=== PATIENT | female | born 1930 | race Caucasian/White ===

== ENCOUNTER 2016-06-03 15:40 | Emergency (ER) | payer OTHER ==
[~2016-06-03] VITALS: Ht 172.7 cm; Wt 63.0 kg
[~2016-06-03 15:40] MED LIST: ALPR0.25 PO; ATEN25TA PO; DULO1CAP PO; ZOLP10TA3 PO
--- NOTE | 2016-06-03 15:58 | PD ---
HPI Chief Complaint: psychiatric evaluation Time Seen by Provider: 15:57 Travel History International Travel<30 days: No Contact w/Intl Traveler<30days: No History of Present Illness HPI Patient comes in under a Hernandez act by police after making suicidal statements. Patient denies any suicidal or homicidal ideations. Denies any medical concerns at this time. Denies any chest pain, shortness breath, fevers, abdominal pain, neck pain, or headaches. PFSH Past Medical History Arthritis: No Asthma: No Autoimmune Disease: No Anxiety: Yes Depression: Yes Heart Rhythm Problems: No Cancer: No Cardiovascular Problems: No High Cholesterol: No Chemotherapy: No Chest Pain: No Congestive Heart Failure: No COPD: No Diabetes: No Diminished Hearing: No Endocrine: No Gastrointestinal Disorders: Yes Glaucoma: No Genitourinary: No Hepatitis: No Hiatal Hernia: No Hypertension: No Immune Disorder: No Kidney Stones: No Musculoskeletal: No Neurologic: Yes Psychiatric: Yes Reproductive: No Respiratory: No Migraines: No Radiation Therapy: No Renal Failure: No Seizures: No Sickle Cell Disease: No Sleep Apnea: No Thyroid Disease: No Ulcer: No Past Surgical History Abdominal Surgery: No AICD: No Arteriovenous Shunt: No Cardiac Surgery: No Ear Surgery: No Endocrine Surgery: No Eye Surgery: No Genitourinary Surgery: No Gynecologic Surgery: No Insulin Pump: No Joint Replacement: No Oral Surgery: Yes (TONSILLECTOMY) Pacemaker: No Thoracic Surgery: No Tonsillectomy: Yes Social History Alcohol Use: Yes (2 GLASSES WINE DAILY) Tobacco Use: No Substance Use: No Allergies-Medications (Allergen,Severity, Reaction): Coded Allergies: No Known Allergies (Verified , 01/15/16) Reported Meds & Prescriptions Reported Meds & Active Scripts Active Reported Atenolol 25 Mg Tab 25 PO DAILY Zolpidem (Zolpidem Tartrate) 10 Mg Tab 10 Mg PO HS PRN Duloxetine DR (Duloxetine HCl) 20 Mg Capdr 20 Mg PO DAILY Alprazolam 0.25 Mg Tab 0.25 Mg PO Q6H PRN Review of Systems Except as stated in HPI: all other systems reviewed are Neg Physical Exam Narrative GENERAL: Well-developed, well nourished, in no acute distress, and non-ill appearing. SKIN: Focused skin assessment warm and dry. HEAD: Atraumatic. Normocephalic. EYES: Pupils equal and round. EOMI. No scleral icterus. No injection or drainage. ENT: No nasal bleeding or discharge. Mucous membranes pink and moist. NECK: Trachea midline. Supple. No nuclear rigidity. CARDIOVASCULAR: Regular rate and rhythm. No murmur appreciated. RESPIRATORY: No accessory muscle use. No respiratory distress. Clear to auscultation. Breath sounds equal bilaterally. MUSCULOSKELETAL: No obvious deformities. No clubbing. No cyanosis. No edema. Full range of motion. NEUROLOGICAL: Awake and alert. No obvious cranial nerve deficits. Motor grossly within normal limits. Normal speech. PSYCHIATRIC: Appropriate mood and affect; insight and judgment normal. Data Data Last Documented VS Vital Signs Date Time Temp Pulse Resp B/P Pulse Ox O2 Delivery O2 Flow Rate FiO2 06/04/16 09:17 98.1 80 18 108/66 100 Room Air Orders Complete Blood Count With Diff (06/03/16 15:54) Comprehensive Metabolic Panel (06/03/16 15:54) Psych Screen (06/03/16 15:54) Drug Screen, Random Urine (06/03/16 15:54) Alcohol (Ethanol) (06/03/16 15:54) Salicylates (Aspirin) (06/03/16 15:54) Tylenol (Acetaminophen) (06/03/16 15:54) Diet Regular Basic (06/03/16 Dinner) Lorazepam (Ativan) (06/03/16 22:45) Magnesium Hydroxide Liq (Milk Of Magnesi (06/04/16 03:15) Hyoscyamine (Levsin) (06/04/16 03:07) Clonidine (Catapres) (06/04/16 03:15) Labs Laboratory Tests Test 06/03/16 17:37 White Blood Count 3.5 TH/MM3 Red Blood Count 3.91 MIL/MM3 Hemoglobin 12.2 GM/DL Hematocrit 36.4 % Mean Corpuscular Volume 93.0 FL Mean Corpuscular Hemoglobin 31.2 PG Mean Corpuscular Hemoglobin 33.6 % Concent Red Cell Distribution Width 14.4 % Platelet Count 193 TH/MM3 Mean Platelet Volume 8.4 FL Neutrophils (%) (Auto) 53.8 % Lymphocytes (%) (Auto) 33.2 % Monocytes (%) (Auto) 12.0 % Eosinophils (%) (Auto) 0.4 % Basophils (%) (Auto) 0.6 % Neutrophils # (Auto) 1.9 TH/MM3 Lymphocytes # (Auto) 1.2 TH/MM3 Monocytes # (Auto) 0.4 TH/MM3 Eosinophils # (Auto) 0.0 TH/MM3 Basophils # (Auto) 0.0 TH/MM3 CBC Comment DIFF FINAL Differential Comment Sodium Level 140 MEQ/L Potassium Level 3.9 MEQ/L Chloride Level 105 MEQ/L Carbon Dioxide Level 25.0 MEQ/L Anion Gap 10 MEQ/L Blood Urea Nitrogen 17 MG/DL Creatinine 1.20 MG/DL Estimat Glomerular Filtration 43 ML/MIN Rate Random Glucose 87 MG/DL Calcium Level 8.8 MG/DL Total Bilirubin 0.6 MG/DL Aspartate Amino Transf 49 U/L (AST/SGOT) Alanine Aminotransferase 48 U/L (ALT/SGPT) Alkaline Phosphatase 75 U/L Total Protein 6.2 GM/DL Albumin 3.3 GM/DL Salicylates Level LESS THAN 1.7 MG/DL Acetaminophen Level 4.2 MCG/ML Ethyl Alcohol Level 9 MG/DL [facility] Medical Decision Making Medical Screen Exam Complete: Yes Emergency Medical Condition: Yes Differential Diagnosis Homicidal, suicidal, substance abuse disorder, alcohol abuse, other Narrative Course Patient was seen and examined. Labs were obtained and reviewed with the exception of urine. Patient was refusing to give us a sample reports that she went to the bathroom. Patient denies any urinary symptoms and has no white cell count or fever. Patient medically cleared for further treatment and evaluation by psych. Final disposition per psych. Diagnosis Primary Impression: Medical clearance for psychiatric admission Condition: Stable Musa Martines Jun 03, 2016 15:58 Musa Martines Jun 03, 2016 15:58
[2016-06-03 16:08] VITALS: BP 192/110; PULSE 99; RESP 16; TEMP 98; O2SAT 97
[2016-06-03 18:07] LABS: AUTOMATED NEUTROPHIL # 1.9 TH/MM3 (1.8-7.7); BASOPHIL % 0.6 % (0.0-2.0); EOSINOPHIL % 0.4 % (0.0-4.0); HEMATOCRIT 36.4 % (35.0-46.0); HEMO FLAGS DIFF FINAL; LYMPH % 33.2 % (9.0-44.0); LYMPHOCYTE # 1.2 TH/MM3 (1.0-4.8); MEAN CORPUSCULAR HEMOGLOBIN 31.2 PG (27.0-34.0); MEAN CORPUSCULAR HGB CONC 33.6 % (32.0-36.0); NEUT % 53.8 % (16.0-70.0); PLATELET COUNT 193 TH/MM3 (150-450); RED BLOOD COUNT 3.91 MIL/MM3 (4.00-5.30); RED CELL DISTRIBUTION WIDTH 14.4 % (11.6-17.2); WHITE BLOOD COUNT 3.5 TH/MM3 (4.0-11.0)
[2016-06-03 18:27] LABS: ANION GAP 10 MEQ/L (5-15)
[2016-06-03 18:30] LABS: ACETAMINOPHEN 4.2 MCG/ML (10.0-30.0); ALKALINE PHOSPHATASE 75 U/L (45-117); ALT (GPT) 48 U/L (10-53); AST (GOT) 49 U/L (15-37); BLOOD UREA NITROGEN 17 MG/DL (7-18); CHLORIDE 105 MEQ/L (98-107); GLOMERULAR FILTRATION RATE 43 ML/MIN (>89); POTASSIUM 3.9 MEQ/L (3.5-5.1); SODIUM (NA) 140 MEQ/L (136-145); TOTAL BILIRUBIN ADULT 0.6 MG/DL (0.2-1.0)
[2016-06-03 22:38] VITALS: BP 120/87; PULSE 87; RESP 18; TEMP 98.4; O2SAT 98
[2016-06-03] MEDS ORDERED: LORazepam 1 MG TAB PO ONE (22:45)
[2016-06-04 00:43] VITALS: BP 169/103; PULSE 103; RESP 18; O2SAT 100
[2016-06-04] MEDS ORDERED: HYOSCYAMINE 0.125 MG TAB PO STA (03:07)
[2016-06-04] MEDS ORDERED: cloNIDine HCL 0.2 MG TAB PO ONE (03:15)
[2016-06-04] MEDS ORDERED: MAGNESIUM HYDROXIDE SUSP 30 ML CUP PO ONE (03:15)
[2016-06-04 06:15] VITALS: BP 92/55; PULSE 83; RESP 18; TEMP 98.4; O2SAT 100
[2016-06-04 09:17] VITALS: BP 108/66; PULSE 80; RESP 18; TEMP 98.1; O2SAT 100
--- NOTE | 2016-06-04 11:26 | PD ---
History of Present Illness Chief Complaint: Psychiatric Symptoms Time Seen by Provider: 11:00 Travel History International Travel<30 Days: No Contact w/Intl Traveler<30days: No Known affected area: No Legal Status Legal Status: Hernandez Act Hernandez Act Signed By: Brandon Guy History of Present Illness: 85 yo female brought in under for alleged Suicidal threats. Pt. vehemently denies being suicidal and feels her [place] sense of humor was misinterpreted by her pharmacist. PFSH Past Medical History Arthritis: No Asthma: No Autoimmune Disease: No Anxiety: Yes Depression: Yes Heart Rhythm Problems: No Cancer: No Cardiovascular Problems: Yes High Cholesterol: No Chemotherapy: No Chest Pain: No Congestive Heart Failure: No COPD: No Cerebrovascular Accident: Yes Diabetes: No Diminished Hearing: No Endocrine: No Gastrointestinal Disorders: Yes Glaucoma: No Genitourinary: No Hepatitis: No Hiatal Hernia: No Hypertension: No Immune Disorder: No Kidney Stones: No Medical other: Yes (IRRITABLE BOWEL SYNDROME) Musculoskeletal: No Neurologic: Yes Psychiatric: Yes Reproductive: No Respiratory: No Migraines: No Radiation Therapy: No Renal Failure: No Seizures: No Sickle Cell Disease: No Sleep Apnea: No Thyroid Disease: No Ulcer: No ?: Not Past Surgical History Abdominal Surgery: No AICD: No Arteriovenous Shunt: No Cardiac Surgery: No Ear Surgery: No Endocrine Surgery: No Eye Surgery: No Genitourinary Surgery: No Gynecologic Surgery: No Insulin Pump: No Joint Replacement: No Oral Surgery: Yes (TONSILLECTOMY) Pacemaker: No Thoracic Surgery: No Tonsillectomy: Yes Psychiatric History Psychiatric History Hx Psychiatric Treatment: Pt denies History of Inpatient Treatment: No Social History Hx Alcohol Use: Yes (2 GLASSES WINE DAILY) Hx Tobacco Use: No Hx Substance Use: No Substance Use Type: Alcohol Other Substances Used: States she drinks whenever she wants to. Hx of Substance Use Treatment: No Allergies-Medications (Allergen,Severity, Reaction): Coded Allergies: No Known Allergies (Verified , 01/15/16) Reported Meds & Prescriptions Reported Meds & Active Scripts Active Reported Atenolol 25 Mg Tab 25 PO DAILY Zolpidem (Zolpidem Tartrate) 10 Mg Tab 10 Mg PO HS PRN Duloxetine DR (Duloxetine HCl) 20 Mg Capdr 20 Mg PO DAILY Alprazolam 0.25 Mg Tab 0.25 Mg PO Q6H PRN Review of Systems ROS Limitations: Clinical Condition Exam Exam Limitations: Clinical Condition Alert: Yes [place]: Person, Place, Date, Situation Mood: Calm Affect: Appropriate Speech: Clear, Logical Eye Contact: Normal Memory Intact: Immediate, Recent, Remote Insight/Judgement adequate. [facility] Medical Decision Making Assessment/Plan Does not meet criteria for BA or inpatient hosp at this time. Orders Complete Blood Count With Diff (06/03/16 15:54) Comprehensive Metabolic Panel (06/03/16 15:54) Psych Screen (06/03/16 15:54) Drug Screen, Random Urine (06/03/16 15:54) Alcohol (Ethanol) (06/03/16 15:54) Salicylates (Aspirin) (06/03/16 15:54) Tylenol (Acetaminophen) (06/03/16 15:54) Diet Regular Basic (06/03/16 Dinner) Lorazepam (Ativan) (06/03/16 22:45) Magnesium Hydroxide Liq (Milk Of Magnesi (06/04/16 03:15) Hyoscyamine (Levsin) (06/04/16 03:07) Clonidine (Catapres) (06/04/16 03:15) Results Vital Signs Date Time Temp Pulse Resp B/P Pulse Ox O2 Delivery O2 Flow Rate FiO2 06/04/16 09:17 98.1 80 18 108/66 100 Room Air 06/04/16 06:15 98.4 83 18 92/55 100 Room Air 06/04/16 00:43 103 18 169/103 100 Room Air 06/03/16 22:38 98.4 87 18 120/87 98 Room Air 06/03/16 16:08 98.0 99 16 192/110 97 Laboratory Tests Test 06/03/16 17:37 White Blood Count 3.5 Red Blood Count 3.91 Hemoglobin 12.2 Hematocrit 36.4 Mean Corpuscular Volume 93.0 Mean Corpuscular Hemoglobin 31.2 Mean Corpuscular Hemoglobin 33.6 Concent Red Cell Distribution Width 14.4 Platelet Count 193 Mean Platelet Volume 8.4 Neutrophils (%) (Auto) 53.8 Lymphocytes (%) (Auto) 33.2 Monocytes (%) (Auto) 12.0 Eosinophils (%) (Auto) 0.4 Basophils (%) (Auto) 0.6 Neutrophils # (Auto) 1.9 Lymphocytes # (Auto) 1.2 Monocytes # (Auto) 0.4 Eosinophils # (Auto) 0.0 Basophils # (Auto) 0.0 CBC Comment DIFF FINAL Differential Comment Sodium Level 140 Potassium Level 3.9 Chloride Level 105 Carbon Dioxide Level 25.0 Anion Gap 10 Blood Urea Nitrogen 17 Creatinine 1.20 Estimat Glomerular Filtration 43 Rate Random Glucose 87 Calcium Level 8.8 Total Bilirubin 0.6 Aspartate Amino Transf 49 (AST/SGOT) Alanine Aminotransferase 48 (ALT/SGPT) Alkaline Phosphatase 75 Total Protein 6.2 Albumin 3.3 Salicylates Level LESS THAN 1.7 Acetaminophen Level 4.2 Ethyl Alcohol Level 9 Diagnosis Primary Impression: Adjustment disorder with mixed disturbance of emotions and conduct Condition: Stable Landon Bose MD Jun 04, 2016 11:26
== END 2016-06-04 14:46 | disposition home or self-care (01) ==
LOC: NEPC 15:40
DX: F43.25 Adjustment disorder with mixed disturbance of emotions and conduct (principal); Z79.899 Other long term (current) drug therapy
CPT/HCPCS: 80053; 80307; 85025; 99285

== ENCOUNTER 2016-06-19 16:51 | Emergency (ER) | payer OTHER ==
[~2016-06-19] VITALS: Ht 165.1 cm; Wt 50.0 kg
[2016-06-19 17:12] VITALS: BP 132/72; PULSE 89; RESP 18; TEMP 98.9; O2SAT 98
--- NOTE | 2016-06-19 17:16 | PD ---
HPI Chief Complaint: Psychiatric Symptoms Time Seen by Provider: 17:16 Travel History International Travel<30 days: No Contact w/Intl Traveler<30days: No Traveled to known affect area: No History of Present Illness HPI 85-year-old female brought in under the [email or web address] with suicidal ideation. Patient has history of adjustment disorder recently seen on 03 June. Patient denies current suicidal ideation at this time. [email or web address] states her sister reported her. She denies any medical issues at this time. She has no known drug allergies. PFSH Past Medical History Arthritis: No Asthma: No Autoimmune Disease: No Anxiety: Yes Depression: Yes Heart Rhythm Problems: No Cancer: No Cardiovascular Problems: Yes High Cholesterol: No Chemotherapy: No Chest Pain: No Congestive Heart Failure: No COPD: No Cerebrovascular Accident: Yes Diabetes: No Diminished Hearing: No Endocrine: No Gastrointestinal Disorders: Yes Glaucoma: No Genitourinary: No Hepatitis: No Hiatal Hernia: No Hypertension: No Immune Disorder: No Kidney Stones: No Musculoskeletal: No Neurologic: Yes Psychiatric: Yes Reproductive: No Respiratory: No Migraines: No Radiation Therapy: No Renal Failure: No Seizures: No Sickle Cell Disease: No Sleep Apnea: No Thyroid Disease: No Ulcer: No Past Surgical History Abdominal Surgery: No AICD: No Arteriovenous Shunt: No Cardiac Surgery: No Ear Surgery: No Endocrine Surgery: No Eye Surgery: No Genitourinary Surgery: No Gynecologic Surgery: No Insulin Pump: No Joint Replacement: No Oral Surgery: Yes (TONSILLECTOMY) Pacemaker: No Thoracic Surgery: No Tonsillectomy: Yes Social History Alcohol Use: Yes (2 GLASSES WINE DAILY) Tobacco Use: No Substance Use: No Allergies-Medications (Allergen,Severity, Reaction): Coded Allergies: No Known Allergies (Verified , 06/19/16) Reported Meds & Prescriptions Reported Meds & Active Scripts Active Reported Atenolol 25 Mg Tab 25 PO DAILY Zolpidem (Zolpidem Tartrate) 10 Mg Tab 10 Mg PO HS PRN Duloxetine DR (Duloxetine HCl) 20 Mg Capdr 20 Mg PO DAILY Alprazolam 0.25 Mg Tab 0.25 Mg PO Q6H PRN Review of Systems ROS Limitations: Uncooperative Except as stated in HPI: all other systems reviewed are Neg General / Constitutional: No: Fever Eyes: No: Visual changes HENT: No: Headaches Cardiovascular: No: Chest Pain or Discomfort Respiratory: No: Shortness of Breath Gastrointestinal: No: Abdominal Pain Genitourinary: No: Dysuria Musculoskeletal: No: Pain Skin: No Rash Neurologic: No: Weakness Psychiatric: No: Depression Endocrine: No: Polydipsia Hematologic/Lymphatic: No: Easy Bruising Physical Exam Exam Limitations: Uncooperative Narrative GENERAL: Patient appears in no acute distress. Patient is uncooperative and angry. SKIN: Warm and dry. Normal color. Normal turgor. HEAD: Atraumatic. Normocephalic. EYES: Pupils equal and round. No scleral icterus. No injection or drainage. ENT: No nasal bleeding or discharge. Mucous membranes pink and moist. Pharynx is clear. NECK: Trachea midline. Supple. CARDIOVASCULAR: Regular rate and rhythm. RESPIRATORY: No accessory muscle use. Clear to auscultation. Breath sounds equal bilaterally. MUSCULOSKELETAL: Extremities without clubbing, cyanosis, or edema. No obvious deformities. NEUROLOGICAL: Awake and alert. No obvious cranial nerve deficits. Motor grossly within normal limits. Five out of 5 muscle strength in the arms and legs. Normal speech. PSYCHIATRIC: Appropriate mood and affect; insight and judgment normal. Data Data Last Documented VS Vital Signs Date Time Temp Pulse Resp B/P Pulse Ox O2 Delivery O2 Flow Rate FiO2 06/19/16 17:12 98.9 89 18 132/72 98 Room Air MDM Medical Decision Making Medical Screen Exam Complete: Yes Emergency Medical Condition: Yes Medical Record Reviewed: Yes Differential Diagnosis Hernandez act. Suicidal ideation. Mood disorder. Narrative Course Patient is medically stable at time of exam. Labs ordered per psychiatric protocol. Patient is medically cleared for psychiatric evaluation. Condition: Stable Shant Mitchell Jun 19, 2016 17:16
[2016-06-19 17:52] LABS: AUTOMATED NEUTROPHIL # 1.7 TH/MM3 (1.8-7.7); EOSINOPHIL # 0.1 TH/MM3 (0-0.4); EOSINOPHIL % 3.4 % (0.0-4.0); HEMATOCRIT 38.1 % (35.0-46.0); HEMO FLAGS DIFF FINAL; LYMPH % 42.1 % (9.0-44.0); LYMPHOCYTE # 1.7 TH/MM3 (1.0-4.8); MEAN CELL VOLUME 93.8 FL (80.0-100.0); MEAN CORPUSCULAR HEMOGLOBIN 31.2 PG (27.0-34.0); MEAN CORPUSCULAR HGB CONC 33.3 % (32.0-36.0); MONO % 11.1 % (0.0-8.0); NEUT % 42.4 % (16.0-70.0); PLATELET COUNT 208 TH/MM3 (150-450); RED BLOOD COUNT 4.06 MIL/MM3 (4.00-5.30); RED CELL DISTRIBUTION WIDTH 14.7 % (11.6-17.2)
[2016-06-19 18:20] LABS: ALT (GPT) 49 U/L (10-53); ANION GAP 11 MEQ/L (5-15); AST (GOT) 52 U/L (15-37); BLOOD UREA NITROGEN 15 MG/DL (7-18); CHLORIDE 112 MEQ/L (98-107); GLOMERULAR FILTRATION RATE 54 ML/MIN (>89); SODIUM (NA) 145 MEQ/L (136-145)
[2016-06-19 18:23] LABS: ALKALINE PHOSPHATASE 95 U/L (45-117); TOTAL BILIRUBIN ADULT 0.4 MG/DL (0.2-1.0)
[2016-06-19 18:39] LABS: BLOOD, URINE SMALL (NEG); COMMENT (UR) CULT NOT INDICATED; CULTURE IF INDICATED CULT NOT INDICATED; GLUCOSE,URINE NEG (NEG); KETONE, URINE NEG (NEG); NITRITE,URINE NEG (NEG); SQUAMOUS EPITHELIAL CELL URINE 1 /hpf (0-5); TRANSITIONAL EPI CELLS, URINE <1 /hpf; URINE COLOR LIGHT-YELLOW (YELLW/STRAW)
[2016-06-19 18:44] LABS: AMPHETAMINE, URINE NEG (NEG); BARBITURATES, URINE NEG (NEG); COCAINE, URINE NEG (NEG)
[2016-06-19 20:01] VITALS: BP 156/90; PULSE 66; RESP 16; O2SAT 96
[2016-06-19] MEDS ORDERED: diphenhydrAMINE HCL 50 MG/ML VIAL IV PUSH ONE (21:30)
[2016-06-19] MEDS ORDERED: LORazepam 2 MG/ML VIAL IM ONE (21:30)
[2016-06-19 21:52] VITALS: BP 137/85; PULSE 80; RESP 16; O2SAT 96
[2016-06-20] MEDS ORDERED: ALPRAZolam 0.25 MG TAB PO ONE (03:15)
--- NOTE | 2016-06-20 11:34 | PD.CONS ---
Provisional Diagnosis Admission Date [place] I. Alcohol-induced mood disorder, alcohol use disorder, history of depression [place] II. Deferred [place] III. Hypertension [place] IV. Multiple ER visits intoxicated with alcohol [place] V. 55 History of Present Illness Service Psychiatry Consult Requested By Primary Care Physician Non-Staff HPI The patient is a 85-year-old woman, domiciled alone in [place], became a in July 2015, with psychiatric history of derepssion, anxiety, alcohol-induced mood disorder, alcohol use disorder, 1 previous hospitalization here at [facility] last September 2015, 3 ER visits in 2017 due alcohol related problems, no previous suicidal attempts, she is on Cymbalta 60 mg prescribed and Xanax 1 mg tid, prescribed by PCP, , with a medical history history of hypertension , who was brought to the emergency department under Hernandez act for suicidal ideations. On psychiatric evaluation patient was found calm and cooperative, patient explains the reason she was brought to the hospital is because she made a suicidal remark to her daughter while intoxicated. Patient is states that she does not have any intention to commit suicide. She describes her mood as "fine", she denies anhedonia, denies hopelessness, denies helplessness, denies poor appetite, denies poor energy she denies suicidal or homicidal ideation. Patient denies anxiety, denies perceptual disturbances, denied past or current sammi. Patient is fully oriented 3, no delirium, no delusions, no paranoia observed. Patient reports almost daily use of wine, she says not more than 3 or 4 cups per day, she denies previous symptoms of withdrawal, she denies the use of illegal drugs. Review of Systems Constitutional: DENIES: Diaphoretic episodes, Fatigue, Fever, Weight gain, Weight loss, Chills, Dizziness, Change in appetite, Night Sweats Endocrine: DENIES: Abnorml menstrual pattern, Heat/cold intolerance, Polydipsia , Polyuria, Polyphagia Eyes: DENIES: Blurred vision, Diplopia, Eye inflammation, Eye pain, Vision loss , Photosensitivity, Double Vision Ears, nose, mouth, throat: DENIES: Tinnitus, Hearing loss, Vertigo, Nasal discharge, Oral lesions, Throat pain, Hoarseness, Ear Pain, Running Nose, Epistaxis, Sinus Pain, Toothache, Odynophagia Respiratory: DENIES: Apneas, Cough, Snoring, Wheezing, Hemoptysis, Sputum production, Shortness of breath Cardiovascular: DENIES: Chest pain, Palpitations, Syncope, Dyspnea on Exertion , PND, Lower Extremity Edema, Orthopnea, Claudication Musculoskeletal: DENIES: Joint pain, Muscle aches, Stiffness, Joint Swelling, Back pain, Neck pain Integumentary: DENIES: Abnormal pigmentation, Pruritus, Rash, Nail changes, Breast masses, Breast skin changes, Nipple discharge Hematologic/lymphatic: DENIES: Bruising, Lymphadenopathy Psychiatric: DENIES: Anxiety, Confusion, Mood changes, Depression, Hallucinations, Agitation, Suicidal Ideation, Homicidal Ideation, Delusions Past Family Social History Coded Allergies: No Known Allergies (Verified , 06/19/16) Reported Medications Atenolol 25 Mg Tab25 PO DAILY #30 TAB Ref 0 01/15/16 Zolpidem 10 Mg Tab10 Mg PO HS PRN (INSOMNIA) Ref 0 01/15/[address] 20 Mg Capdr20 Mg PO DAILY #30 CAP Ref 0 01/15/16 Alprazolam 0.25 Mg Tab0.25 Mg PO Q6H PRN (ANXIETY) Ref 0 01/15/16 Family History Patient denies psychiatric family history Social History Patient was born and raised in [facility], she lives alone in [place] , she recently became a in July 2015, she has a daughter who lives in [place], she is a retired teacher, her highest education level is a master degree in education. Patient's Strengths (min. 2) Verbal communication Physical Exam On physical exam not gait disturbances, no EPS, no tremors, no withdrawal symptoms, present Vital Signs Vital Signs Date Time Temp Pulse Resp B/P Pulse Ox O2 Delivery O2 Flow Rate FiO2 06/19/16 21:52 80 16 137/85 96 Room Air 06/19/16 17:12 98.9 Lab Results Toxicology negative, BAL 181 Mental Status Examination Appearance woman, appears younger than his stated age, good hygiene, [facility], calm and cooperative Speech: Unremarkable Orientation: x3 Memory: Unremarkable Thought Process: Logical Thought Content: Unremarkable Hallucination Type: None Suicidal Ideation: No Previous Suicide Attempts: No Homicidal Ideation: No Previous Homicide Attempts: No Judgment: WNL Affect: Good Mood: Appropriate Motor Activity: Normal gait Assessment & Plan Problem List: (1) Alcohol abuse with alcohol-induced mood disorder Assessment & Plan: The patient is a 85-year-old woman, domiciled alone in [place], retired, with psychiatric history of anxiety, depression , alcohol induced mood disorder, alcohol use disorder, 1 previous psychiatric hospitalization in the past here at [facility] in September 2015, 3 ER visits in 2017 due to alcohol related problems, no previous suicide attempts, who was brought to the hospital this time under Hernandez act activated by her PA after making a suicidal statement in the context of acute alcohol intoxication. Initial BAL was 181. On psychiatric examination today the patient does not present any objective or subjective significant signs or symptoms of depression, anxiety, sammi or perceptual disturbances. Patient denies hopelessness, denies helplessness, denies anhedonia, denies poor appetite, denies problems sleeping, she denies suicidal and homicidal ideation, she denies visual or auditory hallucinations. Patient is found future oriented, with identifiable protective factors. Patient was extensively educated and oriented about the importance of using alcohol prudently. Support, motivation also provided. Continue current psychotropics. Patient does not meet criteria for inpatient psychiatric admission at this moment. She will be discharged back home, Hernandez act will be lifted. ICD Code: F10.14 Assessment & Plan Estimated LOS: days J Luis Daugherty MD Jun 20, 2016 11:34
== END 2016-06-20 09:24 | disposition home or self-care (01) ==
LOC: NEPD 16:51
DX: F10.14 Alcohol abuse with alcohol-induced mood disorder (principal); I10 Essential (primary) hypertension; Z86.59 Personal history of other mental and behavioral disorders; Z86.79 Personal history of other diseases of the circulatory system; Z87.19 Personal history of other diseases of the digestive system; Z86.69 Personal history of other diseases of the nervous system and sense organs
CPT/HCPCS: 80053; 80307; 81001; 85025; 96372; 96374; 99283; J1200; J2060

== ENCOUNTER 2016-09-18 22:06 | Inpatient (IN) | payer OTHER, MEDICARE ==
[~2016-09-18] VITALS: Ht 172.7 cm; Wt 66.1 kg
[2016-09-18 22:23] VITALS: BP 126/62; PULSE 72; RESP 16; TEMP 98; O2SAT 97
[2016-09-18] MEDS ORDERED: SODIUM CHLORIDE 0.9% FLUSH 10 ML FLUSH IVF PRN (22:30)
[2016-09-18] MEDS ORDERED: SODIUM CHLORID 0.9% 500 ML INJ 500 ML IV ONE (22:30)
[2016-09-18 22:35] VITALS: RESP 16; O2SAT 97
--- NOTE | 2016-09-18 22:41 | PD ---
HPI Chief Complaint: Medical Clearance Time Seen by Provider: 22:29 Travel History International Travel<30 days: No Contact w/Intl Traveler<30days: No Traveled to known affect area: No History of Present Illness HPI 85-year-old female with history of alcohol use, depression, presents to the ER today brought in as a Hernandez act, had stated that she has not eaten in 3 days, apparently her had 2 years ago and she has been having forgetful episodes. She has been in the ER in the past for alcohol use and substance use. Patient states that her daughter lives in [place] and she does not want to tell her what going on. She states she does not feel like eating. She denies suicidal ideation. She denies any pains, fevers, vomiting, diarrhea , or any other issues. She states she is sad. Modifying Factors: None Associated Signs & Symptoms: Has not eaten in 3 days, does not feel he eating, forgetful episodes, depression Risk Factors: Elderly, lives alone PFSH Past Medical History Arthritis: No Asthma: No Autoimmune Disease: No Anxiety: Yes Depression: Yes Heart Rhythm Problems: No Cancer: No Cardiovascular Problems: Yes High Cholesterol: No Chemotherapy: No Chest Pain: No Congestive Heart Failure: No COPD: No Cerebrovascular Accident: Yes Diabetes: No Diminished Hearing: Yes (RIGHT SIDE) Endocrine: No Gastrointestinal Disorders: Yes Glaucoma: No Genitourinary: No Hepatitis: No Hiatal Hernia: No Hypertension: No Immune Disorder: No Kidney Stones: No Medical other: Yes (IRRITABLE BOWEL SYNDROME) Musculoskeletal: No Neurologic: Yes Psychiatric: Yes Reproductive: No Respiratory: No Migraines: No Radiation Therapy: No Renal Failure: No Seizures: No Sickle Cell Disease: No Sleep Apnea: No Thyroid Disease: No Ulcer: No Tetanus Vaccination: < 5 Years Influenza Vaccination: Yes Past Surgical History Abdominal Surgery: No AICD: No Arteriovenous Shunt: No Cardiac Surgery: No Ear Surgery: No Endocrine Surgery: No Eye Surgery: No Genitourinary Surgery: No Gynecologic Surgery: No Insulin Pump: No Joint Replacement: No Oral Surgery: Yes (TONSILLECTOMY) Pacemaker: No Thoracic Surgery: No Tonsillectomy: Yes Social History Alcohol Use: Yes (OCCASSIONALLY) Tobacco Use: No Substance Use: No Allergies-Medications (Allergen,Severity, Reaction): Coded Allergies: No Known Allergies (Verified , 7/28/17) Reported Meds & Prescriptions Reported Meds & Active Scripts Active Reported Atenolol 25 Mg Tab 25 PO DAILY Zolpidem (Zolpidem Tartrate) 10 Mg Tab 10 Mg PO HS PRN Duloxetine DR (Duloxetine HCl) 20 Mg Capdr 20 Mg PO DAILY Alprazolam 0.25 Mg Tab 0.25 Mg PO Q6H PRN Review of Systems Except as stated in HPI: all other systems reviewed are Neg Physical Exam Narrative GENERAL: Well-developed elderly white female patient who is currently alert, awake, answering questions appropriately. She is in mild distress. SKIN: Focused skin assessment warm/dry. HEAD: Atraumatic. Normocephalic. EYES: Pupils equal and round. No scleral icterus. No injection or drainage. ENT: No nasal bleeding or discharge. Mucous membranes pink and moist. NECK: Trachea midline. No JVD. CARDIOVASCULAR: Regular rate and rhythm. No murmur appreciated. RESPIRATORY: No accessory muscle use. Clear to auscultation. Breath sounds equal bilaterally. GASTROINTESTINAL: Abdomen soft, non-tender, nondistended. Hepatic and splenic margins not palpable. MUSCULOSKELETAL: No obvious deformities. No clubbing. No cyanosis. No edema. NEUROLOGICAL: Awake and alert. No obvious cranial nerve deficits. Motor grossly within normal limits. Normal speech. PSYCHIATRIC: Depressed mood and flat affect; poor insight and judgment. Data Data Last Documented VS Vital Signs Date Time Temp Pulse Resp B/P Pulse Ox O2 Delivery O2 Flow Rate FiO2 09/19/16 01:55 74 18 111/61 97 Room Air 09/18/16 22:23 98.0 Orders Electrocardiogram (09/18/16 22:29) Complete Blood Count With Diff (09/18/16 22:29) Comprehensive Metabolic Panel (09/18/16 22:29) Magnesium (Mg) (09/18/16 22:29) Urinalysis - C+S If Indicated (09/18/16 22:29) Ecg Monitoring (09/18/16 22:29) Iv Access Insert/Monitor (09/18/16 22:29) Oximetry (09/18/16 22:29) Sodium Chloride 0.9% Flush (Ns Flush) (09/18/16 22:30) Sodium Chlorid 0.9% 500 Ml Inj (Ns 500 M (09/18/16 22:30) Psych Screen (09/18/16 22:41) Drug Screen, Random Urine (09/18/16 22:41) Alcohol (Ethanol) (09/18/16 22:41) Lorazepam (Ativan) (09/19/16 01:00) Labs Laboratory Tests Test 09/18/16 22:32 White Blood Count 4.1 TH/MM3 Red Blood Count 3.95 MIL/MM3 Hemoglobin 13.0 GM/DL Hematocrit 37.8 % Mean Corpuscular Volume 95.7 FL Mean Corpuscular Hemoglobin 32.9 PG Mean Corpuscular Hemoglobin 34.4 % Concent Red Cell Distribution Width 13.8 % Platelet Count 226 TH/MM3 Mean Platelet Volume 8.4 FL Neutrophils (%) (Auto) 41.3 % Lymphocytes (%) (Auto) 41.9 % Monocytes (%) (Auto) 13.2 % Eosinophils (%) (Auto) 2.9 % Basophils (%) (Auto) 0.7 % Neutrophils # (Auto) 1.7 TH/MM3 Lymphocytes # (Auto) 1.7 TH/MM3 Monocytes # (Auto) 0.5 TH/MM3 Eosinophils # (Auto) 0.1 TH/MM3 Basophils # (Auto) 0.0 TH/MM3 CBC Comment DIFF FINAL Differential Comment Sodium Level 139 MEQ/L Potassium Level 3.8 MEQ/L Chloride Level 107 MEQ/L Carbon Dioxide Level 22.0 MEQ/L Anion Gap 10 MEQ/L Blood Urea Nitrogen 16 MG/DL Creatinine 1.13 MG/DL Estimat Glomerular Filtration 46 ML/MIN Rate Random Glucose 88 MG/DL Calcium Level 8.8 MG/DL Magnesium Level 2.3 MG/DL Total Bilirubin 0.3 MG/DL Aspartate Amino Transf 45 U/L (AST/SGOT) Alanine Aminotransferase 35 U/L (ALT/SGPT) Alkaline Phosphatase 92 U/L Total Protein 6.2 GM/DL Albumin 3.2 GM/DL Ethyl Alcohol Level 97 MG/DL MDM Medical Decision Making Medical Screen Exam Complete: Yes Emergency Medical Condition: Yes Medical Record Reviewed: Yes Interpretation(s) Laboratory Tests Test 09/18/16 22:32 Red Blood Count 3.95 MIL/MM3 (4.00-5.30) Monocytes (%) (Auto) 13.2 % (0.0-8.0) Neutrophils # (Auto) 1.7 TH/MM3 (1.8-7.7) Creatinine 1.13 MG/DL (0.50-1.00) Estimat Glomerular Filtration 46 ML/MIN (>89) Rate Aspartate Amino Transf 45 U/L (15-37) (AST/SGOT) Total Protein 6.2 GM/DL (6.4-8.2) Albumin 3.2 GM/DL (3.4-5.0) Ethyl Alcohol Level 97 MG/DL (0-5) Differential Diagnosis Depression, not eating, Hernandez actrule out dehydration versus metabolic issues Narrative Course Lab works shows that she does have alcohol in her system. There are no signs of significant metabolic issues. At this point, my plan would be to medically clear the patient for further evaluation. It appears to me that she may have some underlying social issues as well and case management has been called regarding the case but states that they would defer to psych. Diagnosis Primary Impression: Alcohol intoxication Additional Impression: Medical clearance for psychiatric admission Disposition: 65 DISC TO PSYCH CARE FACILITY Condition: Stable Jelani Stevenson MD Sep 18, 2016 22:41
[2016-09-18 22:57] LABS: AUTOMATED NEUTROPHIL # 1.7 TH/MM3 (1.8-7.7); BASOPHIL % 0.7 % (0.0-2.0); EOSINOPHIL # 0.1 TH/MM3 (0-0.4); EOSINOPHIL % 2.9 % (0.0-4.0); HEMATOCRIT 37.8 % (35.0-46.0); HEMO FLAGS DIFF FINAL; LYMPH % 41.9 % (9.0-44.0); LYMPHOCYTE # 1.7 TH/MM3 (1.0-4.8); MEAN CELL VOLUME 95.7 FL (80.0-100.0); MEAN CORPUSCULAR HEMOGLOBIN 32.9 PG (27.0-34.0); MEAN CORPUSCULAR HGB CONC 34.4 % (32.0-36.0); MONO % 13.2 % (0.0-8.0); NEUT % 41.3 % (16.0-70.0); PLATELET COUNT 226 TH/MM3 (150-450); RED BLOOD COUNT 3.95 MIL/MM3 (4.00-5.30); RED CELL DISTRIBUTION WIDTH 13.8 % (11.6-17.2); WHITE BLOOD COUNT 4.1 TH/MM3 (4.0-11.0)
[2016-09-18 23:24] LABS: ANION GAP 10 MEQ/L (5-15); AST (GOT) 45 U/L (15-37); BLOOD UREA NITROGEN 16 MG/DL (7-18); CHLORIDE 107 MEQ/L (98-107); GLOMERULAR FILTRATION RATE 46 ML/MIN (>89); MAGNESIUM 2.3 MG/DL (1.5-2.5); POTASSIUM 3.8 MEQ/L (3.5-5.1); SODIUM (NA) 139 MEQ/L (136-145)
[2016-09-18 23:25] LABS: ALT (GPT) 35 U/L (10-53)
[2016-09-18 23:28] LABS: ALKALINE PHOSPHATASE 92 U/L (45-117); TOTAL BILIRUBIN ADULT 0.3 MG/DL (0.2-1.0)
[2016-09-19] MEDS ORDERED: LORazepam 0.5 MG TAB PO ONE (01:00)
[2016-09-19 01:55] VITALS: BP 111/61; PULSE 74; RESP 18; O2SAT 97
[2016-09-19 06:08] LABS: AMPHETAMINE, URINE NEG (NEG); BARBITURATES, URINE NEG (NEG); COCAINE, URINE NEG (NEG)
[2016-09-19 06:33] LABS: BACTERIA, URINE RARE /hpf; BLOOD, URINE TRACE (NEG); COMMENT (UR) CULT NOT INDICATED; CULTURE IF INDICATED CULT NOT INDICATED; GLUCOSE,URINE NEG (NEG); HYALINE CAST, URINE 2 /lpf (RARE); KETONE, URINE NEG (NEG); NITRITE,URINE NEG (NEG); PH, URINE 5.5 (5.0-8.5); RENAL EPITHELIAL CELLS <1 /hpf; URINE COLOR YELLOW (YELLW/STRAW)
[2016-09-19] MEDS ORDERED: ALUMINUM/MAGNESIUM/SIMETH 30 ML CUP PO PRN (08:00)
[2016-09-19] MEDS ORDERED: ACETAMINOPHEN 325 MG TAB PO PRN (08:00)
[2016-09-19] MEDS ORDERED: BENZTROPINE MESYLATE 2 MG/2 ML VIAL IM PRN (08:00)
[2016-09-19] MEDS ORDERED: LORazepam 2 MG/ML VIAL IV PUSH PRN ×4 (08:00)
[2016-09-19] MEDS ORDERED: LORazepam 2 MG TAB PO PRN (08:00)
[2016-09-19] MEDS ORDERED: FLUMAZENIL 0.5 MG/5 ML VIAL IV PUSH PRN (08:00)
[2016-09-19] MEDS ORDERED: BENZTROPINE MESYLATE 1 MG TAB PO PRN (08:00)
[2016-09-19] MEDS: ATENOLOL 25 MG TAB PO SCH (08:30)
[2016-09-19] MEDS: DULoxetine HCl DR 20 MG CAP PO SCH ×2 (08:30→21:15)
[2016-09-19] MEDS: THIAMINE HCL 100 MG TAB PO SCH (08:30)
[2016-09-19] MEDS: FOLIC ACID 1 MG TAB PO SCH (08:30)
[2016-09-19] MEDS: NICOTINE 21 MG/24 HR PATCH T-DERMAL SCH (08:30)
[2016-09-19] MEDS: REMOVE OLD PATCH T-DERMAL SCH (08:31)
[2016-09-19 08:32] VITALS: BP 152/84; PULSE 77; RESP 20; TEMP 97.3; O2SAT 98
--- NOTE | 2016-09-19 09:05 | MH ---
cc: NAYANANICOLE DATE OF ADMISSION: 09/19/2016 ADMISSION DIAGNOSES 1. Adjustment disorder, unspecified, 43.20 rule out dementia with behavioral disturbance. rule out pseudodementia, i.e. depression with significant cognitive symptoms. 2. Alcohol abuse, F10.10 LEGAL STATUS: The patient is presently refusing voluntary psychiatric admission but retains capacity to consent for medication. I will initiate a petition for involuntary psychiatric hospitalization but will not request health care surrogate and guardian advocate at this time. HISTORY OF PRESENT ILLNESS Ms. Joseph is an 85-year-old female with self-reported memory problems of about one years duration as well as a history of anxiety who presents under a Hernandez ACT by law enforcement alleging that the patient called [facility] [employer] and said that she was sad and that she has not eaten in three days. She also made comments about "ending it if she was able to." Of note, the patient's alcohol level was elevated at 97 on presentation here and her urine toxicology was positive for benzodiazepines, although these may be prescribed. Reviewing the electronic medical record, I note the patient has presented repeatedly under similar circumstances, most recently having seen Dr. Daugherty back in May of this year. The patient seen and examined. Chart reviewed. On my examination this morning, the patient is clinically sober. She does recall calling a hotline but has no recollection of subsequently calling the police even though it is noted in the Hernandez ACT that she did. She does admit that her memory has been declining over the last year and does admit that she has not eaten in four days. However, her insight into the extent of her illness is poor and she says "there is nothing wrong with it other than aging." The patient does admit that she has been feeling depressed since her two years ago. She says "when he , I ." She admits to poor sleep. No anhedonia. Possibly some worthlessness. Possibly some hopelessness. No hypomanic or manic symptoms. Denies audiovisual hallucinations and I can elicit no delusional beliefs. It is worth noting that during the conversation, she repeats herself several times sharing material that she had previously described, having forgotten that she told me these things. PAST PSYCHIATRIC HISTORY The patient reports a history of anxiety disorder. She is not currently under the care of a psychiatrist. She denies a history of psychiatric admissions or suicide attempts. FAMILY HISTORY The patient denies a family history of mental illness. CHEMICAL DEPENDENCY HISTORY: The patient says that she only drinks a glass of wine daily. She denies any other substance use or abuse. SOCIAL HISTORY The patient is originally from [place]. She is the eldest of five. 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 Her Priyank after 58 years of marriage 2 years ago. She does have a daughter in [place], although unfortunately I cannot find any contact information for her on the chart, and the patient herself cannot remember any contact information. PAST MEDICAL HISTORY Includes a history hypertension. See electronic medical record. REVIEW OF SYSTEMS No reported headache, vision or hearing changes, chest pain, shortness of breath, bowel or bladder issues. No other physical complaints. PHYSICAL EXAMINATION VITAL SIGNS: Temperature is 98.0, pulse 74, respirations 18, blood pressure 111/61, pulse oximetry 97% on room air. Physical examination completed by the ED provider. On my examination today, the patient appears to be in no acute physical distress. No motor abnormalities noted. No signs of withdrawal noted. LABORATORY Reviewed: CBC is unremarkable. CMP reveals decreased GFR at 46 mildly elevated AST at 45. Albumin and so with a somewhat low. Toxicology positive for benzodiazepines. Alcohol level 97. Urinalysis reveals moderate leukocyte esterase but no pyuria. Culture was not indicated. MENTAL STATUS EXAM The patient is casually dressed. She is fairly well-groomed. She is awake and alert and oriented to person, year and location. She is able to register three of three items and recall two out of Three at three minutes. She is unable to perform more than one iterations serial sevens. She is able to name two items and repeat a phrase. She is able to name the current president but cannot name any previous presidents. Speech is within normal limits for rate, tone and volume. Language and fund of knowledge seem somewhat reduced for age. Focus and concentration somewhat scattered. Memory suspected to be impaired. Mood is somewhat depressed and affect blunted. Thought process circumstantial. No loosening of associations. No delusions elicited. Denies audiovisual hallucinations. Denies suicidal or homicidal ideation but did allude to possible suicidal ideation on the Hernandez ACT. Insight and judgment seem quite poor. ASSESSMENT/PLAN This is an 85-year-old female with psychiatric history as detailed above who presents to the emergency department under a Hernandez ACT. On my examination today, the patient displays some subtle signs of cognitive dysfunction, which I suspect may either be related to incipient dementia or possibly to a pseudodementia driven by an underlying depressive diathesis that perhaps had its onset following the passing of her . In any event, I am concerned at this point that the patient is unable to manage her affairs and care for herself adequately in the community. She herself admits that she has not eaten in four days. I think it is most prudent course of action at this juncture to admit the patient to the inpatient psychiatric unit for further observation and stabilization as well as for safety. Admit inpatient. The patient is presently declining to consent for voluntary admission. Involuntary status. I have completed first opinion. Consult for second opinion. The patient retains capacity to consent for medications. I will consult hospitalist to manage the patient's medical conditions and will in the meantime continue her atenolol as ordered. I will titrate her Cymbalta to 20 mg twice daily for the management a low mood. Laboratory workup for possible dementing illness including thyroid function tests, vitamin levels and RPR. Could consider head imaging at this is not been performed recently. CIWA with Ativan for the management of any withdrawal. Thiamine and folate. Seizure and fall precautions. Atarax as needed for anxiety, Cogentin as needed for EPS, Benadryl as needed for sleep. PT and OT evaluation. Vitals every shift. Counselor to see this try to obtain collateral. Disposition planning. Estimated length of stay: 5-7 days. Nicole Peña DC/shey /7:54 AM /8:14 AM JOANA
[2016-09-19 10:20] VITALS: BP 170/88; PULSE 70; RESP 16; TEMP 98; O2SAT 96
[2016-09-19] MEDS: MAGNESIUM HYDROXIDE SUSP 30 ML CUP PO PRN ×2 (11:44→21:24)
[2016-09-19] MEDS: hydrOXYzine HCL 50 MG TAB PO PRN (11:45)
--- NOTE | 2016-09-19 13:10 | PD.CONS ---
History of Present Illness Service Hospitalist Consult Requested By Psychiatry Reason for Consult med management Primary Care Physician Zhen Vincent DO Diagnoses: (1) Hypertension History of Present Illness 85-year-old white female Patient was admitted via Hernandez Act to psychiatry, per admitting history of present illness for calling [facility] Hotline and a distressed state and implying suicide along with not eating for the past few days. However patient has expressed great concern about accidentally missing any home dose of her (milk of magnesia) even though this is not on her home medication list. She states that by missing her nighttime dose of milk of magnesia she would have a great deal of abdominal discomfort since that this makes her feel miserable. Upon further questioning, patient denies any outstanding symptoms of pain, shortness of breath, difficulty ambulating, difficulty urinating or defecating. Denies any symptoms of dyspepsia, nausea, vomiting that would contribute to her decreased intake. Upon admission, patient was noted to have an elevated alcohol level 97, and impaired renal function has GFR 46 implying CKD III. Patient has been seen by psychiatry in the past, apparently does have a primary care physician. Past history is largely remarkable for hypertension. had recently roughly 2 years ago. Review of Systems All other systems reviewed and are negative Past Family Social History Allergies: Coded Allergies: No Known Allergies (Verified , 09/18/16) Past Medical History hypertension. Past Surgical History tonsillectomy Reported Medications Reported Meds & Active Scripts Active Reported Atenolol 25 Mg Tab 25 PO DAILY Zolpidem (Zolpidem Tartrate) 10 Mg Tab 10 Mg PO HS PRN Duloxetine DR (Duloxetine HCl) 20 Mg Capdr 20 Mg PO DAILY Alprazolam 0.25 Mg Tab 0.25 Mg PO Q6H PRN Family History Social History SOCIAL HISTORY The patient is originally from [place]. She is the eldest of five. 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 Her Priyank after 58 years of marriage 2 years ago. She does have a daughter in [place], although unfortunately I cannot find any contact information for her on the chart, and the patient herself cannot remember any contact information. The patient says that she only drinks a glass of wine daily. She denies any other substance use or abuse. Physical Exam Vital Signs Vital Signs Date Time Temp Pulse Resp B/P Pulse Ox O2 Delivery O2 Flow Rate FiO2 09/19/16 10:20 98.0 70 16 170/88 96 09/19/16 08:32 97.3 77 20 152/84 98 Room Air 09/19/16 01:55 74 18 111/61 97 Room Air 09/18/16 22:35 16 97 Room Air 09/18/16 22:23 98.0 72 16 126/62 97 Physical Exam GENERAL: This is a well-nourished, well-developed patient, in no apparent distress. SKIN: No rashes, ecchymoses or lesions. Cool and dry. HEAD: Atraumatic. Normocephalic. No temporal or scalp tenderness. EYES: Pupils equal round and reactive. Extraocular motions intact. No scleral icterus. No injection or drainage. ENT: Nose without bleeding, purulent drainage or septal hematoma. Throat without erythema, tonsillar hypertrophy or exudate. Uvula midline. Airway patent. NECK: Trachea midline. No JVD or lymphadenopathy. Supple, nontender, no meningeal signs. CARDIOVASCULAR: Regular rate and rhythm without murmurs, gallops, or rubs. RESPIRATORY: Clear to auscultation. Breath sounds equal bilaterally. No wheezes , rales, or rhonchi. GASTROINTESTINAL: Abdomen soft, non-tender, nondistended. No hepato-splenomegaly , or palpable masses. No guarding. MUSCULOSKELETAL: Extremities without clubbing, cyanosis, or edema. No joint tenderness, effusion, or edema noted. No calf tenderness. Negative Homans sign bilaterally. NEUROLOGICAL: Awake and alert. Cranial nerves II through XII intact. Motor and sensory grossly within normal limits. Five out of 5 muscle strength in all muscle groups. Normal speech. Laboratory Laboratory Tests Test 09/18/16 09/19/16 22:32 05:45 White Blood Count 4.1 Red Blood Count 3.95 Hemoglobin 13.0 Hematocrit 37.8 Mean Corpuscular Volume 95.7 Mean Corpuscular Hemoglobin 32.9 Mean Corpuscular Hemoglobin 34.4 Concent Red Cell Distribution Width 13.8 Platelet Count 226 Mean Platelet Volume 8.4 Neutrophils (%) (Auto) 41.3 Lymphocytes (%) (Auto) 41.9 Monocytes (%) (Auto) 13.2 Eosinophils (%) (Auto) 2.9 Basophils (%) (Auto) 0.7 Neutrophils # (Auto) 1.7 Lymphocytes # (Auto) 1.7 Monocytes # (Auto) 0.5 Eosinophils # (Auto) 0.1 Basophils # (Auto) 0.0 CBC Comment DIFF FINAL Differential Comment Sodium Level 139 Potassium Level 3.8 Chloride Level 107 Carbon Dioxide Level 22.0 Anion Gap 10 Blood Urea Nitrogen 16 Creatinine 1.13 Estimat Glomerular Filtration 46 Rate Random Glucose 88 Calcium Level 8.8 Magnesium Level 2.3 Total Bilirubin 0.3 Aspartate Amino Transf 45 (AST/SGOT) Alanine Aminotransferase 35 (ALT/SGPT) Alkaline Phosphatase 92 Total Protein 6.2 Albumin 3.2 Ethyl Alcohol Level 97 Urine Color YELLOW Urine Turbidity CLEAR Urine pH 5.5 Urine Specific [place] 1.014 Urine Protein NEG Urine Glucose (UA) NEG Urine Ketones NEG Urine Occult Blood TRACE Urine Nitrite NEG Urine Bilirubin NEG Urine Urobilinogen LESS THAN 2.0 Urine Leukocyte Esterase MOD Urine RBC 6 Urine WBC 5 Urine Renal Epithelial Cells <1 Urine Bacteria RARE Urine Hyaline Casts 2 Microscopic Urinalysis Comment CULT NOT INDICATED Urine Opiates Screen NEG Urine Barbiturates Screen NEG Urine Amphetamines Screen NEG Urine Benzodiazepines Screen POS Urine Cocaine Screen NEG Urine Cannabinoids Screen NEG Result Diagram: [id number]/18/[id number]/[id number] Imaging Laboratory Tests Test 09/19/16 05:45 Urine Color YELLOW (YELLW/STRAW) Urine Turbidity CLEAR (CLEAR) Urine pH 5.5 (5.0-8.5) Urine Specific [place] 1.014 (1.002-1.035) Urine Protein NEG mg/dL (NEG-TRACE) Urine Glucose (UA) NEG mg/dL (NEG) Urine Ketones NEG mg/dL (NEG) Urine Occult Blood TRACE (NEG) Urine Nitrite NEG (NEG) Urine Bilirubin NEG (NEG) Urine Urobilinogen LESS THAN 2.0 MG/DL (LESS THAN 2.0) Urine Leukocyte Esterase MOD (NEG) Urine RBC 6 /hpf (0-3) Urine WBC 5 /hpf (0-5) Urine Renal Epithelial Cells <1 /hpf (NONE) Urine Bacteria RARE /hpf (NONE) Urine Hyaline Casts 2 /lpf (RARE) Microscopic Urinalysis Comment CULT NOT INDICATED Urine Opiates Screen NEG (NEG) Urine Barbiturates Screen NEG (NEG) Urine Amphetamines Screen NEG (NEG) Urine Benzodiazepines Screen POS (NEG) Urine Cocaine Screen NEG (NEG) Urine Cannabinoids Screen NEG (NEG) Assessment and Plan Problem List: (1) Hypertension Status: Chronic (2) Chronic renal insufficiency, stage III (moderate) Status: Chronic Assessment and Plan 85-year-old white female admitted by psychiatry for primary mood disturbance superimposed on chronic mental disorders along with alcohol intoxication. Clinically stable upon admission. UA not impressive for UTI. EKG unremarkable. Mood disturbance,alcohol intoxication, chronic mental disorders - being managed by primary. Agree w/ thiamine supplementation. Decreased po intake - obtaining CK level to ensure pt isn't at risk for rhabdomyolysis. Hypertension - noted one-time elevation since admission of blood pressure, will restart home medication of atenolol Chronic renal insufficiency - appears to be chronic kidney disease stage III ( presumably due to natural deterioration w/ or w/o HTN) - adding on lisinopril low dose to be on chronically Frank Apple MD Sep 19, 2016 13:10
[2016-09-19] MEDS ORDERED: PILL SPLITTER OTHER PRN (13:45)
[2016-09-19] MEDS: LISINOPRIL 5 MG TAB PO SCH (13:47)
--- NOTE | 2016-09-19 16:18 | EKG ---
Date Performed: 09/18/2016 Time Performed: 22:40:37 PTAGE: 85 years EKG: Borderline left axis deviation Since PREVIOUS TRACING , no significant change. PREVIOUS TRACIN05/11/2008 11.59 DOCTOR: Landon Melton Interpretating Date/Time 09/19/2016 16:17:36
[2016-09-19 18:00] VITALS: BP 175/82; PULSE 73; RESP 16; TEMP 97.5; O2SAT 95
[2016-09-19 21:00] VITALS: BP 112/83; PULSE 81; RESP 17
[2016-09-19] MEDS: diphenhydrAMINE HCL 50 MG CAP PO PRN (23:48)
[2016-09-20 06:00] VITALS: BP 172/80; PULSE 77; RESP 17; TEMP 97.4; O2SAT 95
[2016-09-20] MEDS: THIAMINE HCL 100 MG TAB PO SCH (08:24)
[2016-09-20] MEDS: DULoxetine HCl DR 20 MG CAP PO SCH ×2 (08:24→21:00)
[2016-09-20] MEDS: FOLIC ACID 1 MG TAB PO SCH (08:25)
[2016-09-20] MEDS: LISINOPRIL 5 MG TAB PO SCH (08:25)
[2016-09-20] MEDS: ATENOLOL 25 MG TAB PO SCH (08:25)
[2016-09-20] MEDS: REMOVE OLD PATCH T-DERMAL SCH (08:27)
[2016-09-20] MEDS: NICOTINE 21 MG/24 HR PATCH T-DERMAL SCH (08:27)
[2016-09-20 10:08] LABS: ANION GAP 8 MEQ/L (5-15); BICARBONATE 24.9 MEQ/L (21.0-32.0); BLOOD UREA NITROGEN 14 MG/DL (7-18); CHLORIDE 104 MEQ/L (98-107); GLOMERULAR FILTRATION RATE 37 ML/MIN (>89); POTASSIUM 3.7 MEQ/L (3.5-5.1); SODIUM (NA) 137 MEQ/L (136-145)
[2016-09-20 10:34] LABS: FREE T4 1.14 NG/DL (0.76-1.46); HDL CHOLESTEROL 119.3 MG/DL (40.0-60.0); LDL CHOLESTEROL 80 MG/DL (0-99)
--- NOTE | 2016-09-20 16:46 | PD.PSY.CON ---
Provisional Diagnosis Admission Date Sep 19, 2016 at 07:49 [place]. Adjustment Disorder with mixed disturbance of emotions Alcohol abuse with intoxication R/O Dementia R/O Major Depression History of Present Illness Service Psychiatry Consult Requested By Psychiatry Reason for Consult 2nd Opinion Primary Care Physician Zhen Vincent, DO HPI Pt is an 85YOWF who was admitted to [facility] after she called [facility] hotline and stated that she wanted to end her life and was unable to care for self. Pt had not eaten in 4 days. BAL was 97. She reports that her 2 years ago and she has given up. She states that she has not been eating well or caring for self. Mood is depressed. Her memory is poor and pt does not recall calling hotline. She reports that she has one daughter who lives in [facility] who she has not been able to contact due to forgetting her phone number. She states that she has a younger sister who lives locally. She reports that her memory has been failing. As interview progresses pt begins to display increasing cognitive impairment and disorganized behaviors. Review of Systems Psychiatric: COMPLAINS OF: Confusion, Mood changes, Depression Past Family Social History Coded Allergies: No Known Allergies (Verified , 09/18/16) Past Medical History reports hx of hypertension Reported Medications Atenolol 25 Mg Tab25 PO DAILY #30 TAB Ref 0 01/15/16 Zolpidem 10 Mg Tab10 Mg PO HS PRN (INSOMNIA) Ref 0 01/15/[address] 20 Mg Capdr20 Mg PO DAILY #30 CAP Ref 0 01/15/16 Alprazolam 0.25 Mg Tab0.25 Mg PO Q6H PRN (ANXIETY) Ref 0 01/15/16 Current Medications Medications (Trade) Dose Ordered Sig/[place] Route Start Time Stop Time Status Last Admin (NS Flush) 2 ml UNSCH PRN IVF 09/18/16 22:30 (Benadryl) 50 mg HS PRN PO 09/19/16 08:00 09/19/16 23:48 (Tylenol) 650 mg Q4H PRN PO 09/19/16 08:00 (Milk Of Magnesia Liq) 30 ml DAILY PRN PO 09/19/16 08:00 09/19/16 21:24 (Mag-Al Plus Susp Liq) 30 ml Q6H PRN PO 09/19/16 08:00 09/20/16 13:50 (Habitrol 21 Mg Patch.24 Hr) 1 patch DAILY T-DERMAL 09/19/16 09:00 (Atarax) 25 mg Q6H PRN PO 09/19/16 08:00 09/19/16 11:45 (Cogentin) 1 mg Q12H PRN PO 09/19/16 08:00 (Cogentin Inj) 1 mg Q12H PRN IM 09/19/16 08:00 (Romazicon Inj) 0.2 mg Q1M PRN IV PUSH 09/19/16 08:00 (Ativan) 1 mg Q4H PRN PO 09/19/16 08:00 (Ativan Inj) 1 mg Q4H PRN IV PUSH 09/19/16 08:00 (Ativan) 2 mg Q2H PRN PO 09/19/16 08:00 (Ativan Inj) 2 mg Q2H PRN IV PUSH 09/19/16 08:00 (Ativan Inj) 2 mg Q1H PRN IV PUSH 09/19/16 08:00 (Ativan Inj) 2 mg Q15M PRN IV PUSH 09/19/16 08:00 Miscellaneous Information 1 DAILY T-DERMAL 09/19/16 09:00 (Vitamin B1) 100 mg DAILY PO 09/19/16 09:00 09/20/16 08:24 (Folate) 1 mg DAILY PO 09/19/16 09:00 09/20/16 08:25 (Tenormin) 25 mg DAILY PO 09/19/16 09:00 09/20/16 08:25 (Cymbalta Dr) 20 mg BID PO 09/19/16 09:00 09/20/16 08:24 (Prinivil) 2.5 mg DAILY PO 09/19/16 13:25 09/20/16 08:25 (Pill Splitter) 1 ea UNSCH PRN OTHER 09/19/16 13:45 Family History unable to provide Social History lives alone. Spouse two years ago. One adult daughter in [facility]. Retired statistical methods teacher Physical Exam Vital Signs Vital Signs Date Time Temp Pulse Resp B/P Pulse Ox O2 Delivery O2 Flow Rate FiO2 09/20/16 06:00 97.4 77 17 172/80 95 09/19/16 08:32 Room Air I/O 09/19/16 09/19/16 09/20/16 08:00 16:00 00:00 Intake Total 600 ml Balance 600 ml Mental Status Examination Previous Suicide Attempts: No Previous Homicide Attempts: No Assessment & Plan Problem List: (1) Adjustment disorder with mixed disturbance of emotions and conduct ICD Code: F43.25 (2) Alcohol abuse ICD Code: F10.10 Assessment & Plan I agree that pt meets BA criteria. 2nd opinion completed. Estimated LOS: Cecy Burnett MD Sep 20, 2016 16:46
[2016-09-20 18:41] VITALS: BP 123/63; PULSE 99; RESP 18; TEMP 98.1; O2SAT 96
[2016-09-20] MEDS: diphenhydrAMINE HCL 50 MG CAP PO PRN (21:00)
[2016-09-20] MEDS: hydrOXYzine HCL 50 MG TAB PO PRN (21:34)
[2016-09-21 07:12] VITALS: BP 117/58; PULSE 88; RESP 17; TEMP 98.3; O2SAT 93
[2016-09-21 08:00] VITALS: BP 137/75; PULSE 73
[2016-09-21] MEDS: THIAMINE HCL 100 MG TAB PO SCH (08:23)
[2016-09-21] MEDS: CHOLECALCIFEROL (VIT D3) 1000 UNIT TAB PO SCH (08:23)
[2016-09-21] MEDS: ATENOLOL 25 MG TAB PO SCH (08:23)
[2016-09-21] MEDS: DULoxetine HCl DR 20 MG CAP PO SCH ×2 (08:23→21:15)
[2016-09-21] MEDS: LISINOPRIL 5 MG TAB PO SCH (08:23)
[2016-09-21] MEDS: FOLIC ACID 1 MG TAB PO SCH (08:23)
[2016-09-21] MEDS: NICOTINE 21 MG/24 HR PATCH T-DERMAL SCH (08:25)
[2016-09-21] MEDS: REMOVE OLD PATCH T-DERMAL SCH (08:25)
--- NOTE | 2016-09-21 12:41 | HHI.PYPN ---
Subjective Remarks Patient seen and examined with nurse. Chart reviewed. Case discussed with nursing staff reports the patient has been anxious but no real behavioral problem. On my exam, patient presents as somewhat tremulous. She tells me that she could really use "a bottle of Chardonnay." She is A&Ox3 but quite forgetful and continues to repeat herself throughout the interview. Forgets that she is not in her room when we are speaking and tries to get paper out of a drawer, believing it is her own structural analysis engineer her room. In endeavoring to provide collateral sources, patient says we can call the [employer] [facility] [employer], to whom she reportedly sold her house. She says she has his number but instead produces a newspaper article about the [employer] of [employer]. She says that she is trying to focus on "happy things." No side effects from medications. Review of Systems ROS Limitations: Poor Historian Except as stated in HPI: all other systems reviewed are Neg Objective Alert: Yes [place]: Person, Place, Date Mood: Anxious Affect: Blunted Memory Intact: Comment (Seems impaired on clinical exam) Hallucinations: Other (No AVH) Delusions: No Delusion Type: Other (No delusions) Suicidal: Ideation (No SI) Homicidal: Ideation (No HI) Insight/Judgment Poor Remarks Hand tremor present but no diaphoresis, no mydriasis, no other signs of withdrawal. Labs Labs reviewed. Low vitamin D noted. RPR pending. Vitals/IOs Vital Signs Date Time Temp Pulse Resp B/P Pulse Ox O2 Delivery O2 Flow Rate FiO2 09/21/16 08:00 73 137/75 09/21/16 07:12 98.3 17 93 09/19/16 08:32 Room Air Intake and Output 09/20/16 09/20/16 09/21/16 08:00 16:00 00:00 Intake Total 360 ml 1440 ml Balance 360 ml 1440 ml Assessment & Plan Problem List: (1) Adjustment disorder with mixed disturbance of emotions and conduct ICD Code: F43.25 (2) Alcohol abuse ICD Code: F10.10 Assessment & Plan Continue Cymbalta as ordered. Continue CIWA for withdrawal. I note this is starting to increase, but not consistently so. To consider scheduled benzodiazepine taper, although I would like to see if we can get away with Ativan PRN CIWA parameters to avoid too much benzo in this already confused, elderly patient. Continue dementia workup: Follow up RPR. Check Head CT as it does not appear head imaging has been performed within our system. Awaiting OT eval. I remain concerned for patient's ability to function in community. Hospitalist input appreciated. Continue to monitor on the inpatient unit. Continue other medications and care as ordered. Justification for Cont. Inpt. Concern for impairment in self-care. High risk for decompensation in less restrictive environment Discharge Planning Pending outcome of workup/eval. May require placement. Request HC Surrog/Guard Advoc?: No Jae Peña MD Sep 21, 2016 12:41
--- NOTE | 2016-09-21 17:15 | RADRPT ---
EXAM DATE/TIME: 09/21/2016 16:47 [facility] COMPARISON: No previous studies available for comparison. INDICATIONS : Altered mental status. RADIATION DOSE: 56.77 CTDIvol (mGy) MEDICAL HISTORY : None SURGICAL HISTORY : None. ENCOUNTER: Initial ACUITY: 1 day PAIN SCALE: 0/10 LOCATION: cranial TECHNIQUE: Multiple contiguous axial images were obtained of the head. Using automated exposure control and adj ustment of the mA and/or kV according to patient size, radiation dose was kept as low as reasonably a chievable to obtain optimal diagnostic quality images. DICOM format image data is available electro nically for review and comparison. FINDINGS: There is no evidence for intracranial hemorrhage, mass effect, mass lesions, or edema. The visualize d bony structures appear intact. Slight degree of brain atrophy is seen. Slight periventricular whit e matter changes are seen nonspecific mostly consistent with chronic small vessel ischemic changes. There are no signs of acute infarction for technique. There is prominent extra-axial fluid collection in right temporal fossa. CONCLUSION: Slight atrophic and small vessel ischemic changes without any evidence for acute hemorrhage or mass effect. Arnie Oliveira MD on September 21, 2016 at 17:12 Board Certified Radiologist. This report was verified electronically.
[2016-09-21 17:21] LABS: HEMOGLOBIN A1a 1.2 %; HEMOGLOBIN A1b 0.7 %; HEMOGLOBIN Ao 86.1 %; HEMOGLOBIN F 0.6 %; HEMOGLOBIN LA1C 1.9 %; HEMOGLOBIN P3 3.7 %
[2016-09-21 18:36] VITALS: BP 125/82; PULSE 69; RESP 16; TEMP 98.2; O2SAT 95
[2016-09-21] MEDS: diphenhydrAMINE HCL 50 MG CAP PO PRN (21:15)
[2016-09-22 05:41] VITALS: BP 101/73; PULSE 91; RESP 18; TEMP 98.6; O2SAT 95
[2016-09-22] MEDS: LORazepam 1 MG TAB PO PRN ×3 (06:18→21:41)
[2016-09-22] MEDS: LISINOPRIL 5 MG TAB PO SCH (09:36)
[2016-09-22] MEDS: THIAMINE HCL 100 MG TAB PO SCH (09:36)
[2016-09-22] MEDS: ATENOLOL 25 MG TAB PO SCH (09:36)
[2016-09-22] MEDS: DULoxetine HCl DR 20 MG CAP PO SCH ×2 (09:36→21:00)
[2016-09-22] MEDS: FOLIC ACID 1 MG TAB PO SCH (09:36)
[2016-09-22] MEDS: CHOLECALCIFEROL (VIT D3) 1000 UNIT TAB PO SCH (09:36)
--- NOTE | 2016-09-22 11:22 | HHI.PYPN ---
Subjective Remarks Patient seen and examined with counselor and nurse. Chart reviewed. CIWA max 8 in last 24 hours. 2mg Ativan in last 24 hours. Case discussed in treatment team. On my examination, patient presents as disorganized and confused. Oriented to person and year only. Appears more disheveled today. Speech is rambling. She is quite tremulous. Asking for wine. Sleep is reportedly poor, and when I ask why she says that she was "at a convention at [facility]." No evident side effects from meds. Review of Systems ROS Limitations: Poor Historian Except as stated in HPI: all other systems reviewed are Neg Objective Alert: Yes [place]: Person, Date (2016) Mood: Anxious Affect: Blunted Memory Intact: Comment (Remains impaired) Hallucinations: Other (Appears somewhat int stim. Briefly seems to talk to someone next to her, no one there.) Delusions: No Delusion Type: Other (No delusions) Suicidal: Ideation (No SI) Homicidal: Ideation (No HI) Insight/Judgment Poor Remarks Hand tremor noted. Reflexes a little brisk without clonus. No diaphoresis. No mydriasis. Declines to stick out tongue to check for fascics. No other motor abnormalities noted. TP disorganized. Grooming and hygiene poorer today than at admission. Speech rambling but wnl for rate. Labs Labs reviewed. Item Value Date Time Rapid Plasma Reagin NON-REACTIVE 09/20/16 0914 Thyroid Stimulating Hormone 3rd Gen 1.840 uIU/ML 09/20/16 0916 Free Thyroxine 1.14 NG/DL 09/20/16 0916 25-Hydroxy Vitamin D Total 12.4 ng/ML L 09/20/16 0916 Vitamin B12 Level 472 PG/ML 09/20/16 [address] 09/21/16 0000 Signed Impressions: Service Date/Time: Wednesday, September 21, 2016 16:47 - CONCLUSION: Slight atrophic and small vessel ischemic changes without any evidence for acute hemorrhage or mass effect. Arnie Oliveira MD Vitals/IOs Vital Signs Date Time Temp Pulse Resp B/P Pulse Ox O2 Delivery O2 Flow Rate FiO2 09/22/16 05:41 98.6 91 18 101/73 95 09/19/16 08:32 Room Air Intake and Output 09/21/16 09/21/16 09/22/16 08:00 16:00 00:00 Intake Total 480 ml 600 ml Balance 480 ml 600 ml Assessment & Plan Problem List: (1) Adjustment disorder with mixed disturbance of emotions and conduct Assessment & Plan: Rule out neurocognitive disorder/dementia ICD Code: F43.25 (2) Alcohol abuse Assessment & Plan: Concern for alcohol withdrawal delirium. ICD Code: F10.10 Assessment & Plan Mental status worse today. Concern for alcohol withdrawal delirium given exam findings and worsened mental status. Start Ativan 1mg q6h with plans to taper by 25% per day. Continue CIWA PRN withdrawal. Seizure and fall prec in place. Will ask hospitalist to return to follow along for possible withdrawal in case patient requires transfer to med psych or med floor. Remain concerned that baseline cognition is impaired with resultant functional impairment. Awaiting OT eval. Continue Cymbalta as ordered. Continue to monitor on inpatient unit. Continue other medications and care as ordered. Justification for Cont. Inpt. Impairment in reality construction. Med changes. Possible complicating conditions (?DTs). High risk for decompensation in less restrictive environment. Discharge Planning Pending stabilization. May require placement or home with home health. Request HC Surrog/Guard Advoc?: No (to consider requesting GA if mental status does not improve with scheduled benzos.) Jae Peña MD Sep 22, 2016 11:22
[2016-09-22] MEDS: LORazepam 1 MG TAB PO SCH ×3 (12:00→23:51)
--- NOTE | 2016-09-22 14:44 | RADRPT ---
EXAM DATE/TIME: 09/22/2016 13:50 [facility] COMPARISON: No previous studies available for comparison. INDICATIONS : Fell today. MEDICAL HISTORY : None. SURGICAL HISTORY : None. ENCOUNTER: Initial ACUITY: 1 day PAIN SCORE: Non-responsive. LOCATION: Bilateral pelvis FINDINGS: A single frontal view of the pelvis demonstrates no acute fracture or dislocation. Mild osteoarthriti s at the hips and sacroiliac joints. Extensive vascular calcifications are present. CONCLUSION: 1. No acute findings. Jeffrey Duron MD on September 22, 2016 at 14:41 Board Certified Radiologist. This report was verified electronically.
--- NOTE | 2016-09-22 16:44 | PD.TTN ---
Present for Treatment Team Treatment Team Staff: Provider (Dr. Peña), Nurse (ROBERTA Denson), Occupational Therapist (Nigel Perez) Patient Problems 1. Discharge planning 2. Medication compliance 3. Knowledge deficit 4. Lack of coping skills Progress Toward Goals Provider Input: Dr. Peña reported this patient is on a CWIA protocol and she should be closely monitored for withdraw symptoms. Nurse Input: Reported the patient received an Ativan at 6:00 am. this morning and at 10:00 am. Psych Therapist Input: Counselor reported the patient is focused on wine and requesting a bottle of wine from this counselor. Patient remains disoriented, confused, and speaking in word salad. Clinical Specialist Input: Nigel reported the patient is hyperverbal and has refused groups. Documentation Scribe: FERMIN Mcpherson Date Resolved: Sep 22, 2016 Marlyn Huang [facility] Sep 22, 2016 16:44
--- NOTE | 2016-09-22 17:26 | HHI.PR ---
Subjective Remarks Ambulating in the hallways, jittery, anxious, fidgety. Asking to have a glass of wine. Patient however denies having any symptoms. She is noted however tremolos. She denies having any cp, sob, n/v/d/c. No n/v/d/c. per nurse she is eating. Objective Vitals Vital Signs Date Time Temp Pulse Resp B/P Pulse Ox O2 Delivery O2 Flow Rate FiO2 09/22/16 05:41 98.6 91 18 101/73 95 09/21/16 18:36 98.2 69 16 125/82 95 I/O 09/21/16 09/21/16 09/21/16 09/22/16 09/22/16 09/22/16 06:59 14:59 22:59 06:59 14:59 22:59 Intake Total 480 ml 600 ml 600 ml Balance 480 ml 600 ml 600 ml Intake Oral 480 ml 600 ml 600 ml # Voids 2 2 4 1 Result Diagram: 09/18/16 2232 09/20/16 0916 Imaging Last Impressions Pelvis X-Ray 09/22/16 0000 Signed Impressions: Service Date/Time: Thursday, September 22, 2016 13:50 - CONCLUSION: 1. No acute findings. Jeffrey Duron MD Head CT 09/21/16 0000 Signed Impressions: Service Date/Time: Wednesday, September 21, 2016 16:47 - CONCLUSION: Slight atrophic and small vessel ischemic changes without any evidence for acute hemorrhage or mass effect. Arnie Oliveira MD Objective Remarks GENERAL: This is a well-nourished, well-developed patient, in no apparent distress. CARDIOVASCULAR: Regular rate and rhythm 5/6 systolic murmur, no gallops, or rubs. RESPIRATORY: Clear to auscultation. Breath sounds equal bilaterally. No wheezes , rales, or rhonchi. GASTROINTESTINAL: Abdomen soft, non-tender, nondistended. No hepato-splenomegaly , or palpable masses. No guarding. MUSCULOSKELETAL: Extremities without clubbing, cyanosis, or edema. No joint tenderness, effusion, or edema noted. No calf tenderness. Negative Homans sign bilaterally. NEUROLOGICAL: Awake and alert. Cranial nerves II through XII intact. Motor and sensory grossly within normal limits. Five out of 5 muscle strength in all muscle groups. Normal speech. A/P Assessment and Plan 85-year-old white female admitted by psychiatry for primary mood disturbance superimposed on chronic mental disorders along with alcohol intoxication. Clinically stable upon admission. UA not impressive for UTI. EKG unremarkable. Mood disturbance,alcohol intoxication, chronic mental disorders - being managed by primary. Agree w/ thiamine supplementation. Discussed with Dr Toth psych. Patient is more jittery today, she is asking to have wine. Start patient on alcohol withdrawal protocol per psych. Decreased po intake - encourage PO intake. Cardiac murmur. To have 2D echocardiogram performed outpatient for valuvar dx as she seems to be clinically stable and has not had any recent acute cardiac events, whereas proceeding with an echocardiogram during inpt psych stay might actually worsen her anxiety/depression drastically. Hypertension - noted one-time elevation since admission of blood pressure, will restart home medication of atenolol Chronic renal insufficiency - appears to be chronic kidney disease stage III ( presumably due to natural deterioration w/ or w/o HTN) - adding on lisinopril low dose to be on chronically Discussed with the patient, nurse, Dr Hanks psychiatry Navya Silva MD Sep 22, 2016 17:26
[2016-09-22 19:46] VITALS: BP 126/72; PULSE 73; RESP 18; TEMP 97.9; O2SAT 98
[2016-09-23] VITALS: BP 147/78; PULSE 75; RESP 20; TEMP 98.3; O2SAT 98
[2016-09-23 04:56] VITALS: BP 150/81; PULSE 70; RESP 16; TEMP 99.7; O2SAT 98
[2016-09-23] MEDS: LORazepam 1 MG TAB PO SCH ×4 (06:00→23:04)
[2016-09-23] MEDS: ATENOLOL 25 MG TAB PO SCH (09:00)
[2016-09-23] MEDS: DULoxetine HCl DR 20 MG CAP PO SCH ×2 (09:00→21:58)
[2016-09-23] MEDS: THIAMINE HCL 100 MG TAB PO SCH (09:00)
[2016-09-23] MEDS: LISINOPRIL 5 MG TAB PO SCH (09:00)
[2016-09-23] MEDS: CHOLECALCIFEROL (VIT D3) 1000 UNIT TAB PO SCH (09:00)
[2016-09-23] MEDS: FOLIC ACID 1 MG TAB PO SCH (09:00)
[2016-09-23 11:03] LABS: AUTOMATED NEUTROPHIL # 1.3 TH/MM3 (1.8-7.7); EOSINOPHIL # 0.2 TH/MM3 (0-0.4); EOSINOPHIL % 5.6 % (0.0-4.0); HEMATOCRIT 35.7 % (35.0-46.0); HEMO FLAGS DIFF FINAL; LYMPH % 38.9 % (9.0-44.0); LYMPHOCYTE # 1.3 TH/MM3 (1.0-4.8); MEAN CELL VOLUME 95.7 FL (80.0-100.0); MEAN CORPUSCULAR HEMOGLOBIN 33.7 PG (27.0-34.0); MEAN CORPUSCULAR HGB CONC 35.2 % (32.0-36.0); MONO % 15.2 % (0.0-8.0); NEUT % 39.3 % (16.0-70.0); PLATELET COUNT 199 TH/MM3 (150-450); RED BLOOD COUNT 3.73 MIL/MM3 (4.00-5.30); RED CELL DISTRIBUTION WIDTH 13.4 % (11.6-17.2); WHITE BLOOD COUNT 3.4 TH/MM3 (4.0-11.0)
[2016-09-23 11:15] LABS: BICARBONATE 26.4 MEQ/L (21.0-32.0); POTASSIUM 4.4 MEQ/L (3.5-5.1)
--- NOTE | 2016-09-23 13:07 | HHI.PYPN ---
Subjective Remarks Patient seen and examined with nurse. Chart reviewed. Case discussed with nursing staff. On my examination today, the patient is more organized since beginning scheduled Ativan taper. She is somewhat tremulous. She is oriented 3. She remains quite forgetful and repeats material she has shared before. She is resistant to any sort of placement although she admits that she does struggle at times to manage her affairs at home. Denies side effects from medications. No physical complaints. Cannot generate any sources of collateral information. Review of Systems ROS Limitations: Poor Historian Except as stated in HPI: all other systems reviewed are Neg Objective Alert: Yes [place]: Person, Place, Date Mood: Anxious Affect: Blunted Memory Intact: Comment (impaired) Hallucinations: Other (No AVH) Delusions: No Delusion Type: Other (No delusions) Suicidal: Ideation (No SI) Homicidal: Ideation (No HI) Insight/Judgment Poor Remarks Hand tremor noted. No diaphoresis or mydriasis or other signs of withdrawal. Grooming and hygiene fair. Thought process scattered. Labs Labs reviewed. Mild leukopenia noted, likely incidental. GFR decreased but stable. Test 09/23/16 09:00 White Blood Count 3.4 TH/MM3 Red Blood Count 3.73 MIL/MM3 Hemoglobin 12.6 GM/DL Hematocrit 35.7 % Mean Corpuscular Volume 95.7 FL Mean Corpuscular Hemoglobin 33.7 PG Mean Corpuscular Hemoglobin 35.2 % Concent Red Cell Distribution Width 13.4 % Platelet Count 199 TH/MM3 Mean Platelet Volume 9.1 FL Neutrophils (%) (Auto) 39.3 % Lymphocytes (%) (Auto) 38.9 % Monocytes (%) (Auto) 15.2 % Eosinophils (%) (Auto) 5.6 % Basophils (%) (Auto) 1.0 % Neutrophils # (Auto) 1.3 TH/MM3 Lymphocytes # (Auto) 1.3 TH/MM3 Monocytes # (Auto) 0.5 TH/MM3 Eosinophils # (Auto) 0.2 TH/MM3 Basophils # (Auto) 0.0 TH/MM3 CBC Comment DIFF FINAL Differential Comment Sodium Level 140 MEQ/L Potassium Level 4.4 MEQ/L Chloride Level 105 MEQ/L Carbon Dioxide Level 26.4 MEQ/L Anion Gap 9 MEQ/L Blood Urea Nitrogen 26 MG/DL Creatinine 1.39 MG/DL Estimat Glomerular Filtration 36 ML/MIN Rate Random Glucose 72 MG/DL Calcium Level 8.9 MG/DL Vitals/IOs Vital Signs Date Time Temp Pulse Resp B/P Pulse Ox O2 Delivery O2 Flow Rate FiO2 09/23/16 04:56 99.7 70 16 150/81 98 09/19/16 08:32 Room Air Intake and Output 09/22/16 09/22/16 09/23/16 08:00 16:00 00:00 Intake Total 600 ml 1560 ml Balance 600 ml 1560 ml Assessment & Plan Problem List: (1) Adjustment disorder with mixed disturbance of emotions and conduct ICD Code: F43.25 (2) Alcohol abuse ICD Code: F10.10 Assessment & Plan Continue Ativan taper with CIWA with Ativan for breakthrough withdrawal. Continue Cymbalta as ordered. Awaiting occupational therapy evaluation. Hospitalist input noted and appreciated. Continue other medications and care as ordered. Justification for Cont. Inpt. Medication changes and process. High risk for decompensation and less restrictive environment. Discharge Planning Pending outcome of [place] [facility] tomorrow. Jae Peña MD Sep 23, 2016 13:07
[2016-09-23 18:00] VITALS: BP 113/66; PULSE 58; RESP 18; TEMP 97.1; O2SAT 95
[2016-09-24] MEDS: LORazepam 1 MG TAB PO SCH ×4 (05:41→23:17)
[2016-09-24 06:00] VITALS: BP 137/85; PULSE 86; RESP 16; TEMP 98.6; O2SAT 97
[2016-09-24] MEDS: DULoxetine HCl DR 20 MG CAP PO SCH ×2 (08:29→20:45)
[2016-09-24] MEDS: ATENOLOL 25 MG TAB PO SCH (08:30)
[2016-09-24] MEDS: CHOLECALCIFEROL (VIT D3) 1000 UNIT TAB PO SCH (08:30)
[2016-09-24] MEDS: FOLIC ACID 1 MG TAB PO SCH (08:30)
[2016-09-24] MEDS: LISINOPRIL 5 MG TAB PO SCH (08:30)
[2016-09-24] MEDS: THIAMINE HCL 100 MG TAB PO SCH (08:30)
--- NOTE | 2016-09-24 12:37 | HHI.PYPN ---
Subjective Remarks Patient seen and case discussed with nursing staff. Chart reviewed. Nurse has made contact with patient's daughter as has counselor. Daughter has apparently been trying to get the patient placed in [facility] due to concerns about self care at home. For me today, patient fairly organized with respect to thought process. Minimizing of circumstances of presentation here. Minimizes EtOH use. Remains forgetful. Does not want placement because she does not want to live in a "dormitory" setting. No s/e from meds. No physical complaints. Review of Systems ROS Limitations: Poor Historian Except as stated in HPI: all other systems reviewed are Neg Objective Alert: Yes [place]: Person, Place Mood: Calm Affect: Blunted Memory Intact: Comment (remains impaired) Hallucinations: Other (None) Delusions: No Delusion Type: Other (None elicited) Suicidal: Ideation (No SI) Homicidal: Ideation (No HI) Insight/Judgment Poor Remarks Mild hand tremor. No diaphoresis or other signs of withdrawal. Labs Labs reviewed. Vitals/IOs Vital Signs Date Time Temp Pulse Resp B/P Pulse Ox O2 Delivery O2 Flow Rate FiO2 09/24/16 06:00 98.6 86 16 137/85 97 Intake and Output 09/23/16 09/23/16 09/24/16 08:00 16:00 00:00 Intake Total 240 ml 870 ml Balance 240 ml 870 ml Assessment & Plan Problem List: (1) Adjustment disorder with mixed disturbance of emotions and conduct ICD Code: F43.25 (2) Alcohol abuse ICD Code: F10.10 Assessment & Plan Continue Ativan taper for management of withdrawal. Continue CIWA with Ativan for breakthrough withdrawal. Patient has not required any Ativan by CIWA since 09/22. Continue to monitor on the inpatient unit. Hospitalist input appreciated. Continue other medications and care as ordered. Case presented to the [place] court, and the patient was retained on the unit by the director of consulting services and daughter was appointed as guardian advocate. Justification for Cont. Inpt. High risk for decompensation in less restrictive environment. Discharge Planning Placement. Request HC Surrog/Guard Advoc?: Yes Jae Peña MD Sep 24, 2016 12:37
[2016-09-24 17:33] VITALS: BP 116/64; PULSE 70; RESP 17; TEMP 97.6; O2SAT 98
[2016-09-25] MEDS: LORazepam 1 MG TAB PO SCH ×3 (05:47→18:00)
[2016-09-25 06:00] VITALS: BP 111/59; PULSE 94; RESP 18; TEMP 97.1; O2SAT 97
[2016-09-25] MEDS: LISINOPRIL 5 MG TAB PO SCH (08:47)
[2016-09-25] MEDS: ATENOLOL 25 MG TAB PO SCH (08:48)
[2016-09-25] MEDS: DULoxetine HCl DR 20 MG CAP PO SCH (08:48)
[2016-09-25] MEDS: THIAMINE HCL 100 MG TAB PO SCH (08:48)
[2016-09-25] MEDS: FOLIC ACID 1 MG TAB PO SCH (08:48)
[2016-09-25] MEDS: CHOLECALCIFEROL (VIT D3) 1000 UNIT TAB PO SCH (08:48)
--- NOTE | 2016-09-25 12:19 | HHI.PYPN ---
Subjective Remarks Patient seen and examined with counselor. Chart reviewed. Case discussed with nursing staff. On my examination today, the patient remains fairly forgetful. She says that she has been feeling sad ever since her 's passing. No SI. Denies side effects from medications. No physical complaints. Remains resistant to assisted living placement. Review of Systems ROS Limitations: Poor Historian Except as stated in HPI: all other systems reviewed are Neg Objective Alert: Yes [place]: Person, Place Mood: Other (sad) Affect: Blunted (somewhat blunted) Memory Intact: Comment (impaired on clinical exam) Hallucinations: Other (no hallucinations) Delusions: No Delusion Type: Other (no delusions) Suicidal: Ideation (no suicidal ideation) Homicidal: Ideation (no HI) Insight/Judgment Poor Remarks No hand tremor noted. No other signs of withdrawal noted. No other motoric abnormalities appreciated. Grooming and hygiene fair at best. Thought process circumstantial. Labs Labs reviewed. BMP ordered for today is listed as in process. 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 Voicing more depressive symptoms related to 's passing now; titrate Cymbalta to 30 mg twice daily for mood. Continue Ativan taper with CIWA scale with Ativan for breakthrough withdrawal. Continue to monitor on the inpatient unit. Continue other medications and care as ordered. Justification for Cont. Inpt. Medication changes. Risk for decompensation in less restrictive environment. Discharge Planning Placement? Case d/w counselor. Request HC Surrog/Guard Advoc?: Yes Problem Qualifiers (1) Depression: Qualified Code: F32.9 - Depression, unspecified depression type Jae Peña MD Sep 25, 2016 12:19
--- NOTE | 2016-09-25 15:52 | HHI.PR ---
Subjective Remarks The patient is in bed, says she doesn't know why she is in the hospital. Says she doesn't want to be here. At the end of the interview she is asking if she can have a glass of wine. Patient denies any chest pain or sob. No n/v/d/c. She is however not eating much and is not drinking water. Patient says she is not eating much since her 1 year ago. No abdominal pain. Denies fever or chills. Objective Vitals Vital Signs Date Time Temp Pulse Resp B/P Pulse Ox O2 Delivery O2 Flow Rate FiO2 09/25/16 06:00 97.1 94 18 111/59 97 09/24/16 17:33 97.6 70 17 116/64 98 I/O 09/24/16 09/24/16 09/24/16 09/25/16 09/25/16 09/25/16 07:00 15:00 23:00 07:00 15:00 23:00 Intake Total 240 ml 630 ml 480 ml Balance 240 ml 630 ml 480 ml Intake Oral 240 ml 630 ml 480 ml # Voids 1 2 Result Diagram: 09/23/16 0900 09/23/16 0900 Imaging Last Impressions Pelvis X-Ray 09/22/16 0000 Signed Impressions: Service Date/Time: Thursday, September 22, 2016 13:50 - CONCLUSION: 1. No acute findings. Jeffrey Durno MD Head CT 09/21/16 0000 Signed Impressions: Service Date/Time: Wednesday, September 21, 2016 16:47 - CONCLUSION: Slight atrophic and small vessel ischemic changes without any evidence for acute hemorrhage or mass effect. Arnie Oliveira MD Objective Remarks GENERAL: This is a well-nourished, well-developed patient, in no apparent distress. CARDIOVASCULAR: Regular rate and rhythm 5/6 systolic murmur, no gallops, or rubs. RESPIRATORY: Clear to auscultation. Breath sounds equal bilaterally. No wheezes , rales, or rhonchi. GASTROINTESTINAL: Abdomen soft, non-tender, nondistended. No hepato-splenomegaly , or palpable masses. No guarding. MUSCULOSKELETAL: Extremities without clubbing, cyanosis, or edema. No joint tenderness, effusion, or edema noted. No calf tenderness. Negative Homans sign bilaterally. NEUROLOGICAL: Awake and alert. Cranial nerves II through XII intact. Motor and sensory grossly within normal limits. Five out of 5 muscle strength in all muscle groups. Normal speech. A/P Assessment and Plan 85-year-old white female admitted by psychiatry for primary mood disturbance superimposed on chronic mental disorders along with alcohol intoxication. Clinically stable upon admission. UA not impressive for UTI. EKG unremarkable. Mood disturbance, alcohol intoxication, chronic mental disorders - being managed by primary. Agree w/ thiamine supplementation. Discussed with Dr Navneet sanchez. Patient is more jittery today, she is asking to have wine. Start patient on alcohol withdrawal protocol per psych. Decreased po intake - encourage PO intake. LAUREEN on CKD3 noted worsening kidney function as patient with low PO intake. Encouraged PO hydration. Hold lisinopril at this time. Chronic renal insufficiency 3 - appears to be chronic kidney disease stage III ( presumably due to natural deterioration w/ or w/o HTN) Cardiac murmur. To have 2D echocardiogram performed outpatient for valuvar dx as she seems to be clinically stable and has not had any recent acute cardiac events, whereas proceeding with an echocardiogram during inpt psych stay might actually worsen her anxiety/depression drastically. Hypertension - noted one-time elevation since admission of blood pressure, continue home medication atenolol Discussed with the patient, nurse Navya Silva MD Sep 25, 2016 15:52
[2016-09-25 17:05] LABS: POTASSIUM 4.1 MEQ/L (3.5-5.1)
[2016-09-25 17:23] VITALS: BP 109/54; PULSE 53; RESP 16; TEMP 97.9; O2SAT 97
[2016-09-25] MEDS: MAGNESIUM HYDROXIDE SUSP 30 ML CUP PO PRN (18:31)
[2016-09-25] MEDS: DULoxetine HCl DR 30 MG CAP PO SCH (22:08)
[2016-09-26] MEDS: LORazepam 1 MG TAB PO SCH ×2 (06:00)
[2016-09-26 06:16] VITALS: BP 145/67; PULSE 63; RESP 17; TEMP 96.9; O2SAT 96
[2016-09-26] MEDS: ATENOLOL 25 MG TAB PO SCH (09:14)
[2016-09-26] MEDS: DULoxetine HCl DR 30 MG CAP PO SCH ×2 (09:14→20:33)
[2016-09-26] MEDS: CHOLECALCIFEROL (VIT D3) 1000 UNIT TAB PO SCH (09:15)
[2016-09-26] MEDS: FOLIC ACID 1 MG TAB PO SCH (09:16)
[2016-09-26] MEDS: THIAMINE HCL 100 MG TAB PO SCH (09:16)
[2016-09-26] MEDS: LISINOPRIL 5 MG TAB PO SCH (09:17)
--- NOTE | 2016-09-26 09:39 | HHI.PR ---
Subjective Remarks Cr improving, patient is drinking more water. Says she is not drinking water in general. Says she however likes to drink wine. Patient says she has decrease PO intake x 1 year since her . No n/v/d/c. Denies chest pain or sob. Objective Vitals Vital Signs Date Time Temp Pulse Resp B/P Pulse Ox O2 Delivery O2 Flow Rate FiO2 09/26/16 06:16 96.9 63 17 145/67 96 09/25/16 17:23 97.9 53 16 109/54 97 I/O 09/25/16 09/25/16 09/25/16 09/26/16 09/26/16 09/26/16 07:00 15:00 23:00 07:00 15:00 23:00 Intake Total 480 ml 1200 ml 0 ml Balance 480 ml 1200 ml 0 ml Intake Oral 480 ml 1200 ml 0 ml # Voids 2 1 Result Diagram: 09/23/16 0900 09/25/16 1630 Imaging Last Impressions Pelvis X-Ray 09/22/16 0000 Signed Impressions: Service Date/Time: Thursday, September 22, 2016 13:50 - CONCLUSION: 1. No acute findings. Jeffrey Duron MD Head CT 09/21/16 0000 Signed Impressions: Service Date/Time: Wednesday, September 21, 2016 16:47 - CONCLUSION: Slight atrophic and small vessel ischemic changes without any evidence for acute hemorrhage or mass effect. Arnie Oliveira MD Objective Remarks GENERAL: This is a well-nourished, well-developed patient, in no apparent distress. CARDIOVASCULAR: Regular rate and rhythm 5/6 systolic murmur, no gallops, or rubs. RESPIRATORY: Clear to auscultation. Breath sounds equal bilaterally. No wheezes , rales, or rhonchi. GASTROINTESTINAL: Abdomen soft, non-tender, nondistended. No hepato-splenomegaly , or palpable masses. No guarding. MUSCULOSKELETAL: Extremities without clubbing, cyanosis, or edema. No joint tenderness, effusion, or edema noted. No calf tenderness. Negative Homans sign bilaterally. NEUROLOGICAL: Awake and alert. Cranial nerves II through XII intact. Motor and sensory grossly within normal limits. Five out of 5 muscle strength in all muscle groups. Normal speech. A/P Assessment and Plan 85-year-old white female admitted by psychiatry for primary mood disturbance superimposed on chronic mental disorders along with alcohol intoxication. Clinically stable upon admission. UA not impressive for UTI. EKG unremarkable. Mood disturbance, alcohol intoxication, chronic mental disorders - being managed by primary. Agree w/ thiamine supplementation. Discussed with Dr Toth psych. Patient is more jittery today, she is asking to have wine. Start patient on alcohol withdrawal protocol per psych. Decreased po intake - encourage PO intake. LAUREEN on CKD3 noted worsening kidney function as patient with low PO intake. Encouraged PO hydration. Hold lisinopril at this time. Kidney function improving. Monitor closely. Avoid nephrotoxins. Chronic renal insufficiency 3 - appears to be chronic kidney disease stage III ( presumably due to natural deterioration w/ or w/o HTN) Cardiac murmur. To have 2D echocardiogram performed outpatient for valuvar dx as she seems to be clinically stable and has not had any recent acute cardiac events, whereas proceeding with an echocardiogram during inpt psych stay might actually worsen her anxiety/depression drastically. Hypertension - noted one-time elevation since admission of blood pressure, continue home medication atenolol Discussed with the patient, nurse Navya Silva MD Sep 26, 2016 09:39
--- NOTE | 2016-09-26 12:51 | HHI.PYPN ---
Subjective Remarks Patient was seen and case discussed with nursing. Patient was seen and case discussed with nursing. Patient is tearful and scared about going home. She is concerned that she will be alone when she goes home. She complains of passive suicidal thoughts not caring what happens to her. Main stressors 's passing last December. Objective Alert: Yes [place]: Person, Place Mood: Other (sad) Affect: Tearful Memory Intact: Comment (impaired on clinical exam) Hallucinations: Other (no hallucinations) Delusions: No Delusion Type: Other (no delusions) Suicidal: Ideation (passive suicidal ideation) Homicidal: Ideation (no HI) Insight/Judgment Poor Labs Test 09/25/16 16:30 Sodium Level 136 MEQ/L Potassium Level 4.1 MEQ/L Chloride Level 100 MEQ/L Carbon Dioxide Level 29.0 MEQ/L Anion Gap 7 MEQ/L Blood Urea Nitrogen 18 MG/DL Creatinine 1.16 MG/DL Estimat Glomerular Filtration 45 ML/MIN Rate Random Glucose 83 MG/DL Calcium Level 9.1 MG/DL Vitals/IOs Vital Signs Date Time Temp Pulse Resp B/P Pulse Ox O2 Delivery O2 Flow Rate FiO2 09/26/16 06:16 96.9 63 17 145/67 96 Intake and Output 09/25/16 09/25/16 09/26/16 08:00 16:00 00:00 Intake Total 1200 ml Balance 1200 ml Assessment & Plan Problem List: (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 Inpt. Patient will decompensate in a less restrictive setting Request HC Surrog/Guard Advoc?: Yes Problem Qualifiers (1) Depression: Qualified Code: F32.9 - Depression, unspecified depression type Charbel Chung DO Sep 26, 2016 12:51
[2016-09-26 20:00] VITALS: BP 133/72; PULSE 69; RESP 18; TEMP 98.2; O2SAT 99
[2016-09-26] MEDS: MAGNESIUM HYDROXIDE SUSP 30 ML CUP PO PRN (20:44)
[2016-09-26 21:06] LABS: AUTOMATED NEUTROPHIL # 2.3 TH/MM3 (1.8-7.7); BASOPHIL % 0.9 % (0.0-2.0); EOSINOPHIL # 0.1 TH/MM3 (0-0.4); EOSINOPHIL % 2.9 % (0.0-4.0); HEMATOCRIT 39.4 % (35.0-46.0); HEMO FLAGS DIFF FINAL; LYMPHOCYTE # 1.1 TH/MM3 (1.0-4.8); MEAN CELL VOLUME 94.7 FL (80.0-100.0); MEAN CORPUSCULAR HEMOGLOBIN 32.2 PG (27.0-34.0); MEAN CORPUSCULAR HGB CONC 34.1 % (32.0-36.0); MONO % 12.8 % (0.0-8.0); NEUT % 55.4 % (16.0-70.0); PLATELET COUNT 226 TH/MM3 (150-450); RED BLOOD COUNT 4.16 MIL/MM3 (4.00-5.30); RED CELL DISTRIBUTION WIDTH 13.3 % (11.6-17.2); WHITE BLOOD COUNT 4.1 TH/MM3 (4.0-11.0)
[2016-09-26 21:28] LABS: BICARBONATE 29.8 MEQ/L (21.0-32.0); POTASSIUM 3.7 MEQ/L (3.5-5.1)
[2016-09-27 06:28] VITALS: BP 146/68; PULSE 69; RESP 18; TEMP 97.7; O2SAT 96
[2016-09-27] MEDS: ATENOLOL 25 MG TAB PO SCH (09:18)
[2016-09-27] MEDS: FOLIC ACID 1 MG TAB PO SCH (09:18)
[2016-09-27] MEDS: LISINOPRIL 5 MG TAB PO SCH (09:18)
[2016-09-27] MEDS: THIAMINE HCL 100 MG TAB PO SCH (09:19)
[2016-09-27] MEDS: CHOLECALCIFEROL (VIT D3) 1000 UNIT TAB PO SCH (09:19)
[2016-09-27] MEDS: DULoxetine HCl DR 30 MG CAP PO SCH ×2 (09:19→20:50)
--- NOTE | 2016-09-27 11:08 | HHI.PYPN ---
Subjective Remarks Patient was seen and case discussed with nursing. Patient shows improvement in accepting her 's and her subsequent loneliness. She stated she is okay with living in an [facility]. No longer has passive suicidal ideation. Though she realizes her life will never be the same. She denies suicidal ideation intent or plan. Affect is tearful Objective Alert: Yes [place]: Person, Place Mood: Other (sad) Affect: Tearful Memory Intact: Comment (impaired on clinical exam) Hallucinations: Other (no hallucinations) Delusions: No Delusion Type: Other (no delusions) Suicidal: Ideation (denies) Homicidal: Ideation (no HI) Insight/Judgment Poor Labs Test 09/26/16 20:26 White Blood Count 4.1 TH/MM3 Red Blood Count 4.16 MIL/MM3 Hemoglobin 13.4 GM/DL Hematocrit 39.4 % Mean Corpuscular Volume 94.7 FL Mean Corpuscular Hemoglobin 32.2 PG Mean Corpuscular Hemoglobin 34.1 % Concent Red Cell Distribution Width 13.3 % Platelet Count 226 TH/MM3 Mean Platelet Volume 8.5 FL Neutrophils (%) (Auto) 55.4 % Lymphocytes (%) (Auto) 28.0 % Monocytes (%) (Auto) 12.8 % Eosinophils (%) (Auto) 2.9 % Basophils (%) (Auto) 0.9 % Neutrophils # (Auto) 2.3 TH/MM3 Lymphocytes # (Auto) 1.1 TH/MM3 Monocytes # (Auto) 0.5 TH/MM3 Eosinophils # (Auto) 0.1 TH/MM3 Basophils # (Auto) 0.0 TH/MM3 CBC Comment DIFF FINAL Differential Comment Sodium Level 137 MEQ/L Potassium Level 3.7 MEQ/L Chloride Level 100 MEQ/L Carbon Dioxide Level 29.8 MEQ/L Anion Gap 7 MEQ/L Blood Urea Nitrogen 17 MG/DL Creatinine 1.19 MG/DL Estimat Glomerular Filtration 43 ML/MIN Rate Random Glucose 104 MG/DL Calcium Level 8.9 MG/DL Vitals/IOs Vital Signs Date Time Temp Pulse Resp B/P Pulse Ox O2 Delivery O2 Flow Rate FiO2 09/27/16 06:28 97.7 69 18 146/68 96 Intake and Output 09/26/16 09/26/16 09/27/16 08:00 16:00 00:00 Intake Total 0 ml 240 ml 1320 ml Balance 0 ml 240 ml 1320 ml Assessment & Plan Problem List: (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 Inpt. Patient will decompensate in a less restrictive setting Request HC Surrog/Guard Advoc?: Yes Problem Qualifiers (1) Depression: Qualified Code: F32.9 - Depression, unspecified depression type Charbel Chung DO Sep 27, 2016 11:08
[2016-09-27] MEDS: LORazepam 1 MG TAB PO PRN (13:13)
[2016-09-27 14:26] LABS: BICARBONATE 25.4 MEQ/L (21.0-32.0)
[2016-09-27 18:02] VITALS: BP 123/59; PULSE 71; TEMP 97.2; O2SAT 97
[2016-09-27] MEDS: hydrOXYzine HCL 50 MG TAB PO PRN (20:53)
[2016-09-28 05:25] VITALS: BP 121/72; PULSE 60; RESP 16; TEMP 96.3; O2SAT 97
[2016-09-28] MEDS: LISINOPRIL 5 MG TAB PO SCH (08:52)
[2016-09-28] MEDS: THIAMINE HCL 100 MG TAB PO SCH (08:52)
[2016-09-28] MEDS: FOLIC ACID 1 MG TAB PO SCH (08:52)
[2016-09-28] MEDS: DULoxetine HCl DR 30 MG CAP PO SCH ×2 (08:52→21:35)
[2016-09-28] MEDS: CHOLECALCIFEROL (VIT D3) 1000 UNIT TAB PO SCH (08:53)
[2016-09-28] MEDS: ATENOLOL 25 MG TAB PO SCH (08:53)
--- NOTE | 2016-09-28 10:52 | HHI.PR ---
Subjective Remarks Follow up on patient with LAUREEN on CKD3. Patient seen and examined today. Patient denies any complaints. She is asking when she can be discharged home. She admits to not drinking much fluid yesterday. She denies any complaints at this time. Denies any fever or chills. Denies any hematuria or dysuria. Denies any chest pain or SOB. No N/V or abdominal pain. Objective Vitals Vital Signs Date Time Temp Pulse Resp B/P Pulse Ox O2 Delivery O2 Flow Rate FiO2 09/28/16 05:25 96.3 60 16 121/72 97 09/27/16 18:02 97.2 71 123/59 97 I/O 09/27/16 09/27/16 09/27/16 09/28/16 09/28/16 09/28/16 07:00 15:00 23:00 07:00 15:00 23:00 Intake Total 960 ml 240 ml Balance 960 ml 240 ml Intake Oral 960 ml 240 ml # Voids 2 3 1 Result Diagram: 09/26/16202509/27/16 1247 Imaging Last Impressions Pelvis X-Ray 09/22/16 0000 Signed Impressions: Service Date/Time: Thursday, September 22, 2016 13:50 - CONCLUSION: 1. No acute findings. Jeffrey Duron MD Head CT 09/21/16 0000 Signed Impressions: Service Date/Time: Wednesday, September 21, 2016 16:47 - CONCLUSION: Slight atrophic and small vessel ischemic changes without any evidence for acute hemorrhage or mass effect. Arnie Oliveira MD Objective Remarks GENERAL: This is a well-nourished, well-developed patient, in no apparent distress. Awake and alert. Sitting up in day room drinking water. SKIN: Warm and dry. No rashes noted HEENT: NC/AT, EOMI. MMM. Neck: Trachea midline. CARDIOVASCULAR: Regular rate and rhythm 5/6 systolic murmur, no gallops, or rubs. RESPIRATORY: Clear to auscultation. Breath sounds equal bilaterally. No wheezes , rales, or rhonchi. GASTROINTESTINAL: Abdomen soft, non-tender, nondistended. (+)BS. MUSCULOSKELETAL: Extremities without clubbing, cyanosis, or edema. No calf tenderness. NEUROLOGICAL: Awake and alert. Able to move all extremities. Normal speech. Medications and IVs Current Medications Medications (Trade) Dose Ordered Sig/[place] Route Start Time Stop Time Status Last Admin (NS Flush) 2 ml UNSCH PRN IVF 09/18/16 22:30 (Benadryl) 50 mg HS PRN PO 09/19/16 08:00 09/21/16 21:15 (Tylenol) 650 mg Q4H PRN PO 09/19/16 08:00 (Milk Of Magnesia Liq) 30 ml DAILY PRN PO 09/19/16 08:00 09/26/16 20:44 (Mag-Al Plus Susp Liq) 30 ml Q6H PRN PO 09/19/16 08:00 09/20/16 13:50 (Atarax) 25 mg Q6H PRN PO 09/19/16 08:00 09/27/16 20:53 (Cogentin) 1 mg Q12H PRN PO 09/19/16 08:00 (Cogentin Inj) 1 mg Q12H PRN IM 09/19/16 08:00 (Romazicon Inj) 0.2 mg Q1M PRN IV PUSH 09/19/16 08:00 (Ativan) 1 mg Q4H PRN PO 09/19/16 08:00 09/27/16 13:13 (Ativan Inj) 1 mg Q4H PRN IV PUSH 09/19/16 08:00 (Ativan) 2 mg Q2H PRN PO 09/19/16 08:00 09/21/16 02:04 (Ativan Inj) 2 mg Q2H PRN IV PUSH 09/19/16 08:00 (Ativan Inj) 2 mg Q1H PRN IV PUSH 09/19/16 08:00 (Ativan Inj) 2 mg Q15M PRN IV PUSH 09/19/16 08:00 (Vitamin B1) 100 mg DAILY PO 09/19/16 09:00 09/28/16 08:52 (Folate) 1 mg DAILY PO 09/19/16 09:00 09/28/16 08:52 (Tenormin) 25 mg DAILY PO 09/19/16 09:00 09/28/16 08:53 (Prinivil) 2.5 mg DAILY PO 09/19/16 13:25 09/28/16 08:52 (Pill Splitter) 1 ea UNSCH PRN OTHER 09/19/16 13:45 (Vitamin D3) 2,000 units DAILY PO 09/21/16 09:00 09/28/16 08:53 ([place]) 30 mg BID PO 09/25/16 21:00 09/28/16 08:52 A/P Assessment and Plan 85-year-old white female admitted by psychiatry for primary mood disturbance superimposed on chronic mental disorders along with alcohol intoxication. Clinically stable upon admission. UA not impressive for UTI. EKG unremarkable. Mood disturbance, alcohol intoxication, chronic mental disorders being managed by primary. Continue w/ thiamine supplementation. CIWA protocol. No evidence of withdrawal symptoms noted. Decreased po intake continue to encourage PO intake. LAUREEN on CKD3 noted worsening kidney function as patient with low PO intake. Hold lisinopril at this time. Avoid nephrotoxins. Creatinine trending up. Patient admits to poor po intake yesterday. Encouraged PO hydration. Monitor closely. Repeat BMP pending for today. Chronic renal insufficiency 3 appears to be chronic kidney disease stage III (presumably due to natural deterioration w/ or w/o HTN) Cardiac murmur. Patient to have 2D echocardiogram performed outpatient for valvular dx as she seems to be clinically stable and has not had any recent acute cardiac events, whereas proceeding with an echocardiogram during inpt psych stay might actually worsen her anxiety/depression drastically. Hypertension controlled continue home medication atenolol Lisinopril on hold Vitamin D deficiency Continue po supplementation Discussed with nursing staff, patient and Macarena Arteaga Sep 28, 2016 10:52
--- NOTE | 2016-09-28 12:32 | HHI.PYPN ---
Subjective Remarks Patient seen and examined with counselor. Chart reviewed. Case discussed with nursing staff. Counselor informs me that patient's daughter is comfortable with the patient being discharged home with home health care and will also be providing for a private caregiver to supplement the home healthcare, and this could occur as early as Wednesday. On my examination today, the patient is in good spirits. She is agreeable to the above discharge plan. Mood improved today. No SI/HI. Tends to minimize EtOH use but does agree to cut back. No side effects from medications. No physical complaints. Review of Systems ROS Limitations: Poor Historian Except as stated in HPI: all other systems reviewed are Neg Objective Alert: Yes [place]: Person, Place Mood: Calm Affect: Appropriate Memory Intact: Comment (remains somewhat impaired) Hallucinations: Other (no hallucinations) Delusions: No Delusion Type: Other (no delusions elicited) Suicidal: Ideation (no SI) Homicidal: Ideation (no HI) Insight/Judgment Poor Remarks No motor abnormalities noted Labs Test 09/27/16 12:47 Sodium Level 138 MEQ/L Potassium Level 4.0 MEQ/L Chloride Level 103 MEQ/L Carbon Dioxide Level 25.4 MEQ/L Anion Gap 10 MEQ/L Blood Urea Nitrogen 15 MG/DL Creatinine 1.24 MG/DL Estimat Glomerular Filtration 41 ML/MIN Rate Random Glucose 112 MG/DL Calcium Level 8.9 MG/DL Labs reviewed. GFR somewhat decreased, 35 today. 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 Last use of Ativan by [place] was early yesterday afternoon. No signs of withdrawal presently. Continue CIWA scale with Ativan as needed. Continue Cymbalta as ordered. Continue to monitor on the inpatient unit. Continue other medications and care as ordered. Justification for Cont. Inpt. Risk for decompensation in less restrictive environment. Discharge Planning Possible discharge middle of the week as noted above. Request HC Surrog/Guard Advoc?: Yes Problem Qualifiers (1) Depression: Qualified Code: F32.9 - Depression, unspecified depression type Jae Peña MD Sep 28, 2016 12:32
[2016-09-28 14:15] LABS: BICARBONATE 28.2 MEQ/L (21.0-32.0)
--- NOTE | 2016-09-28 15:06 | HHI.PR ---
Subjective Remarks In the recreational room. Feels better and wants to go home. No n/v/d/c. Worsening kidney function , hold lisinopril encourage PO intake. Says she was not drinking much water because she doesn't like water. No fever or chills. No urinary complaints. Objective Vitals Vital Signs Date Time Temp Pulse Resp B/P Pulse Ox O2 Delivery O2 Flow Rate FiO2 09/28/16 05:25 96.3 60 16 121/72 97 09/27/16 18:02 97.2 71 123/59 97 I/O 09/27/16 09/27/16 09/27/16 09/28/16 09/28/16 09/28/16 07:00 15:00 23:00 07:00 15:00 23:00 Intake Total 960 ml 1320 ml Balance 960 ml 1320 ml Intake Oral 960 ml 1320 ml # Voids 2 3 1 Result Diagram: 09/26/16202509/28/16 1248 Imaging Last Impressions Pelvis X-Ray 09/22/16 0000 Signed Impressions: Service Date/Time: Thursday, September 22, 2016 13:50 - CONCLUSION: 1. No acute findings. Jeffrey Duron MD Head CT 09/21/16 0000 Signed Impressions: Service Date/Time: Wednesday, September 21, 2016 16:47 - CONCLUSION: Slight atrophic and small vessel ischemic changes without any evidence for acute hemorrhage or mass effect. Arnie Oliveira MD Objective Remarks GENERAL: This is a well-nourished, well-developed patient, in no apparent distress. CARDIOVASCULAR: Regular rate and rhythm 5/6 systolic murmur, no gallops, or rubs. RESPIRATORY: Clear to auscultation. Breath sounds equal bilaterally. No wheezes , rales, or rhonchi. GASTROINTESTINAL: Abdomen soft, non-tender, nondistended. No hepato-splenomegaly , or palpable masses. No guarding. MUSCULOSKELETAL: Extremities without clubbing, cyanosis, or edema. No joint tenderness, effusion, or edema noted. No calf tenderness. Negative Homans sign bilaterally. NEUROLOGICAL: Awake and alert. Cranial nerves II through XII intact. Motor and sensory grossly within normal limits. Five out of 5 muscle strength in all muscle groups. Normal speech. A/P Assessment and Plan 85-year-old white female admitted by psychiatry for primary mood disturbance superimposed on chronic mental disorders along with alcohol intoxication. Clinically stable upon admission. UA not impressive for UTI. EKG unremarkable. Mood disturbance, alcohol intoxication, chronic mental disorders - being managed by primary. Agree w/ thiamine supplementation. Discussed with Dr Navneet sanchez. Patient is more jittery today, she is asking to have wine. Start patient on alcohol withdrawal protocol per psych. Decreased po intake - encourage PO intake. LAUREEN on CKD3 noted worsening kidney function as patient with low PO intake. Encouraged PO hydration. Hold lisinopril at this time. Monitor closely. Avoid nephrotoxins. Chronic renal insufficiency 3 - appears to be chronic kidney disease stage III ( presumably due to natural deterioration w/ or w/o HTN) Cardiac murmur. To have 2D echocardiogram performed outpatient for valuvar dx as she seems to be clinically stable and has not had any recent acute cardiac events, whereas proceeding with an echocardiogram during inpt psych stay might actually worsen her anxiety/depression drastically. Hypertension - noted one-time elevation since admission of blood pressure, continue home medication atenolol Discussed with the patient, nurse Navya Silva MD Sep 28, 2016 15:06
[2016-09-28 18:17] VITALS: BP 137/55; PULSE 64; RESP 18; TEMP 96.8; O2SAT 88
[2016-09-28] MEDS: diphenhydrAMINE HCL 50 MG CAP PO PRN (21:35)
[2016-09-28] MEDS: LORazepam 1 MG TAB PO PRN (21:44)
[2016-09-29 05:52] VITALS: BP 136/76; PULSE 66; RESP 16; TEMP 98.1; O2SAT 97
[2016-09-29] MEDS: DULoxetine HCl DR 30 MG CAP PO SCH ×2 (09:02→20:42)
[2016-09-29] MEDS: CHOLECALCIFEROL (VIT D3) 1000 UNIT TAB PO SCH (09:02)
[2016-09-29] MEDS: FOLIC ACID 1 MG TAB PO SCH (09:02)
[2016-09-29] MEDS: ATENOLOL 25 MG TAB PO SCH (09:02)
[2016-09-29] MEDS: THIAMINE HCL 100 MG TAB PO SCH (09:02)
--- NOTE | 2016-09-29 11:26 | HHI.FF ---
Face to Face Verification Diagnosis: (1) Mild neurocognitive disorder (2) Depression (3) Alcohol abuse Occupational Therapy Order: Evaluate and Treat Home Health Nursing Order: Signs/symptoms of disease process Medication education-adverse effect [employer] Order: To Evaluate: Living conditions/environment, Support services Order: To Provide: Long range planning, Community services I have seen patient Johana Joseph on 09/29/16. My clinical findings support the need for the requested home health care services because: Impaired cognition/judgement I certify that my clinical findings support that this patient is homebound because: Impaired cognitive ability/safety Jae Peña MD Sep 29, 2016 11:26
--- NOTE | 2016-09-29 11:27 | HHI.PYPN ---
Subjective Remarks Patient seen and examined with counselor. Chart reviewed. Case discussed in treatment team. On my exam, patient is in good spirits. Remains somewhat forgetful. Hopeful for discharge soon. No suicidal/homicidal ideation. No psychosis. Denies side effects from meds. No physical complaints. Review of Systems ROS Limitations: Poor Historian Except as stated in HPI: all other systems reviewed are Neg Objective Alert: Yes [place]: Person, Place Mood: Calm Affect: Euthymic Memory Intact: Comment (somewhat impaired) Hallucinations: Other (No AVH) Delusions: No Delusion Type: Other (No delusional material) Suicidal: Ideation (no SI) Homicidal: Ideation (no HI) Insight/Judgment Poor Remarks No motor abnormalities noted. No stigmata of withdrawal. Thought process fairly linear. Labs Labs reviewed. 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 D/c CIWA. Mental status remains somewhat impaired despite resolution of acute withdrawal, suspect neurocognitive disorder. Start Aricept 5mg qHS and assess tolerability tomorrow. Completed home health referral. Continue other medications and care as ordered. Justification for Cont. Inpt. Medication changes in process. Discharge Planning Anticipate discharge home tomorrow with home health. Daughter is also arranging for additional in-home care per counselor. Request HC Surrog/Guard Advoc?: Yes Problem Qualifiers (1) Depression: Qualified Code: F32.9 - Depression, unspecified depression type Chaiffetz,Jae B. MD Sep 29, 2016 11:27
--- NOTE | 2016-09-29 11:27 | PD.TTN ---
Present for Treatment Team Treatment Team Staff: Provider (Dr Peña ), Nurse (Val), Psych Therapist (Katelin ) Patient Problems 1. Discharge planning 2. Medication compliance 3. Knowledge deficit 4. Lack of coping skills Progress Toward Goals Provider Input: CESAR novoa Nurse Input: good night wants sleep medication Psych Therapist Input: discharge tomorrow [facility] order today to be arranged by Katelin Ye [facility] Sep 29, 2016 11:27
[2016-09-29 16:01] VITALS: BP 92/59; PULSE 65; RESP 18; TEMP 98.5; O2SAT 100
[2016-09-29] MEDS: diphenhydrAMINE HCL 50 MG CAP PO PRN (20:42)
[2016-09-29] MEDS ORDERED: DONEPEZIL HCL 5 MG TAB PO SCH (21:00)
[2016-09-30 05:09] VITALS: BP 139/75; PULSE 70; RESP 15; TEMP 97.8; O2SAT 98
[2016-09-30] MEDS: CHOLECALCIFEROL (VIT D3) 1000 UNIT TAB PO SCH (08:38)
[2016-09-30] MEDS: ATENOLOL 25 MG TAB PO SCH (08:38)
[2016-09-30] MEDS: FOLIC ACID 1 MG TAB PO SCH (08:38)
[2016-09-30] MEDS: THIAMINE HCL 100 MG TAB PO SCH (08:39)
[2016-09-30] MEDS: DULoxetine HCl DR 30 MG CAP PO SCH (08:39)
[2016-09-30] MEDS: hydrOXYzine HCL 50 MG TAB PO PRN (08:39)
[2016-09-30 09:03] LABS: BICARBONATE 27.2 MEQ/L (21.0-32.0); POTASSIUM 3.9 MEQ/L (3.5-5.1)
--- NOTE | 2016-09-30 09:35 | HHI.PR ---
Subjective Remarks Follow up on patient with LAUREEN on CKD3. Patient seen and examined today. Patient denies any complaints. Pt noted anxiety about going home and having support; noted her daughter lives in [place] and there is limited family in the state of [place]. She noted in the past when she is alone and depressed she "would have some wine to tae care of it." She spoke of "trying to not let it be a drinking problem." She denies any other issues/concerns. She denied fever or chills, hematuria or dysuria, cough, SOB, chest pain, N/V/D. Per RN (Araseli) pt without new issues overnight or since start of shift. Objective Vitals Vital Signs Date Time Temp Pulse Resp B/P Pulse Ox O2 Delivery O2 Flow Rate FiO2 09/30/16 05:09 97.8 70 15 139/75 98 09/29/16 16:01 98.5 65 18 92/59 100 I/O 09/29/16 09/29/16 09/29/16 09/30/16 09/30/16 09/30/16 07:00 15:00 23:00 07:00 15:00 23:00 Intake Total 200 ml 240 ml 1080 ml 320 ml 120 ml Balance 200 ml 240 ml 1080 ml 320 ml 120 ml Intake Oral 200 ml 240 ml 1080 ml 320 ml 120 ml # Voids 1 4 2 Result Diagram: 09/26/16202509/30/16 0758 Objective Remarks GENERAL: Pt encountered in day room and walked to a quiet area in order to be interviewed. NAD. SKIN: Warm and dry. HEAD: Normocephalic. EYES: No scleral icterus. No injection or drainage. NECK: Supple, trachea midline. No lymphadenopathy. CARDIOVASCULAR: Regular rate and rhythm without gallops or rubs. Systolic heart murmur present (3/6). RESPIRATORY: Breath sounds equal bilaterally. No accessory muscle use. GASTROINTESTINAL: Abdomen soft, non-tender, nondistended. MUSCULOSKELETAL: No cyanosis, or edema. PSYCHIATRIC: Alert and oriented x3. Anxious, as noted in subjective portion of report. Pleasant and cooperative. Medications and IVs Current Medications Medications (Trade) Dose Ordered Sig/K[place]ena Route Start Time Stop Time Status Last Admin (NS Flush) 2 ml UNSCH PRN IVF 09/18/16 22:30 (Benadryl) 50 mg HS PRN PO 09/19/16 08:00 09/29/16 20:42 (Tylenol) 650 mg Q4H PRN PO 09/19/16 08:00 (Milk Of Magnesia Liq) 30 ml DAILY PRN PO 09/19/16 08:00 09/26/16 20:44 (Mag-Al Plus Susp Liq) 30 ml Q6H PRN PO 09/19/16 08:00 09/20/16 13:50 (Atarax) 25 mg Q6H PRN PO 09/19/16 08:00 09/30/16 08:39 (Cogentin) 1 mg Q12H PRN PO 09/19/16 08:00 (Cogentin Inj) 1 mg Q12H PRN IM 09/19/16 08:00 (Vitamin B1) 100 mg DAILY PO 09/19/16 09:00 09/30/16 08:39 (Folate) 1 mg DAILY PO 09/19/16 09:00 09/30/16 08:38 (Tenormin) 25 mg DAILY PO 09/19/16 09:00 09/30/16 08:38 (Prinivil) 2.5 mg DAILY PO 09/19/16 13:25 Hold 09/28/16 08:52 (Pill Splitter) 1 ea UNSCH PRN OTHER 09/19/16 13:45 (Vitamin D3) 2,000 units DAILY PO 09/21/16 09:00 09/30/16 08:38 (Cymbalta Dr) 30 mg BID PO 09/25/16 21:00 09/30/16 08:39 (Aricept) 5 mg HS PO 09/29/16 21:00 09/29/16 20:42 Urinary Catheter: No A/P Assessment and Plan 85-year-old white female admitted by psychiatry for primary mood disturbance superimposed on chronic mental disorders along with alcohol intoxication. Clinically stable upon admission. UA not impressive for UTI. EKG unremarkable. Pt's creatinine noted to be 1.33. Blood pressure noted to be normal with two hypotensive episodes noted in past 24 hours. Encourage fluids. Mood disturbance, alcohol intoxication, chronic mental disorders - being managed by primary. Agree w/ thiamine supplementation. Discussed with Dr Toth psych. Patient is more jittery today, she is asking to have wine. Start patient on alcohol withdrawal protocol per psych. Decreased po intake - encourage PO intake. LAUREEN on CKD3 noted worsening kidney function as patient with low PO intake. Encouraged PO hydration. Hold lisinopril at this time. Monitor closely. Avoid nephrotoxins. Chronic renal insufficiency 3 - appears to be chronic kidney disease stage III ( presumably due to natural deterioration w/ or w/o HTN) Cardiac murmur. To have 2D echocardiogram performed outpatient for valuvar dx as she seems to be clinically stable and has not had any recent acute cardiac events, whereas proceeding with an echocardiogram during inpt psych stay might actually worsen her anxiety/depression drastically. Hypertension - noted one-time elevation since admission of blood pressure, continue home medication atenolol Discussed with the patient, nurse, and Dr. Silva. Discharge Planning Per nursing, pt is to be discharged home today. Medically cleared for discharge; order placed. Ancelmo Ayala Jr. Sep 30, 2016 09:35
[2016-09-30] MEDS ORDERED: ATEN25TA PO (10:23)
[2016-09-30] MEDS ORDERED: GNP100TA3 PO (10:23)
[2016-09-30] MEDS ORDERED: ARIC5TAB2 PO (10:23)
[2016-09-30] MEDS ORDERED: FOLI1TAB6 PO (10:23)
[2016-09-30] MEDS ORDERED: VITA1000 PO (10:23)
[2016-09-30] MEDS ORDERED: DULO1CAP2 PO (10:23)
--- NOTE | 2016-09-30 10:23 | HHI.DS ---
Psychiatry Discharge Summary Inpatient Psychiatric care?: Yes Advance Directive: No Reason Not Provided: . Mental Health AdvanceDirective: No Health Care Proxy: No Admission Admission Date Sep 19, 2016 at 07:49 Admission Diagnosis: (1) Adjustment disorder ICD Code: F43.20 (2) Alcohol abuse ICD Code: F10.10 Brief History Pt is an 85YOWF who was admitted to [facility] after she called [facility] hotline and stated that she wanted to end her life and was unable to care for self. Pt had not eaten in 4 days. BAL was 97. She reports that her 2 years ago and she has given up. She states that she has not been eating well or caring for self. Mood is depressed. Her memory is poor and pt does not recall calling hotline. She reports that she has one daughter who lives in [facility] who she has not been able to contact due to forgetting her phone number. She states that she has a younger sister who lives locally. She reports that her memory has been failing. As interview progresses pt begins to display increasing cognitive impairment and disorganized behaviors. Tobacco Use In Past 30 Days: No Tobacco Past 30 Days Alcohol Use: 4 or More Times Per Week Hospital Course Patient was admitted to a locked, inpatient psychiatric unit. A general medical consultation was obtained. Appropriate precautions were in place throughout patient's hospital stay. Patient was seen and examined daily on the unit by psychiatry and also visited by counselor. Psychotropic medications were adjusted. Patient tolerated medication changes well without side effects. Patient was detoxified from alcohol with lorazepam taper with additional lorazepam PRN CIWA. Cymbalta was titrated for mood. Aricept was added for memory impairment. There was no evidence of any suicidality or homicidality on the inpatient unit. Patient's behavior improved with the benefit of pharmacologic treatment. We have recommended placement to patient and family, but patient is -set against it and remains too cognitively intact to force placement over her objection. As a fallback position, counselor has made arrangements to discharge patient home with home health care along with additional in-home services hired by the patient's daughter. On the day of discharge: Patient seen and examined. Chart reviewed. Case discussed with nursing staff. No behavioral issues noted overnight. On my examination today, the patient is in good spirits and eager for discharge from the inpatient psychiatric unit. Mood is reportedly improved versus admission. She denies any suicidal or homicidal ideation, intent or plan on direct questioning and contracts for safety. Denies audiovisual hallucinations. No delusions elicited. Denies side effects from medications. No physical complaints. Weighing the acute, chronic, and protective factors and based on the available evidence, I horse show judge to a reasonable degree of medical certainty that the patient is at low imminent risk of harm to self or others from her mental illnesses to find under the Hernandez act, and her level of function is adequate for outpatient care. Patient will be discharged today home with home health with psychiatric follow-up as arranged by counselor. Patient is also to follow-up with primary care. I counseled the patient to abstain from substances of abuse including alcohol. I have counseled the patient regarding warning signs for need to return to the psychiatric emergency room as part of a general safety plan. Results Blood Pressure 139 / 75 Vital Signs Date Time Temp Pulse Resp B/P Pulse Ox O2 Delivery O2 Flow Rate FiO2 09/30/16 05:09 97.8 70 15 139/75 98 Laboratory Tests Test 09/27/16 09/28/16 09/30/16 12:47 12:48 07:58 Creatinine 1.24 MG/DL 1.43 MG/DL 1.33 MG/DL (0.50-1.00) (0.50-1.00) (0.50-1.00) Estimat Glomerular Filtration 41 ML/MIN (>89) 35 ML/MIN (>89) 38 ML/MIN (>89) Rate Random Glucose 112 MG/DL 122 MG/DL (74-106) (74-106) Blood Urea Nitrogen 21 MG/DL (7-18) Summary of Procedures None done Imaging Last Impressions Pelvis X-Ray 09/22/16 0000 Signed Impressions: Service Date/Time: Thursday, September 22, 2016 13:50 - CONCLUSION: 1. No acute findings. Jeffrey Duron MD Head CT 09/21/16 0000 Signed Impressions: Service Date/Time: Wednesday, September 21, 2016 16:47 - CONCLUSION: Slight atrophic and small vessel ischemic changes without any evidence for acute hemorrhage or mass effect. Arnie Oliveira MD Pending results at discharge: No Medications # of Antipsychotic meds at D/C: 0 Approp Antipsych med options 1 - Minimum of three failed multiple trials of monotherapy. 2 - Documented plan to taper to monotherapy due to previous use of multiple meds OR cross-taper in progress at D/C. 3 - Documentation of augmentation of Clozapine. 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 Patient is well groomed. She is maintaining basic hygiene Patient is awake and alert and oriented person, 2017, hospital in [place]. No evidence of delirium. No motor abnormalities appreciated. Speech is within normal limits for rate, tone, volume. Registration 3 out of 3 and recall 3 out of 3 at 5 minutes. Able to name 2 items and repeat a phrase. WORLD backward is DLRW. Mood is good. Affect is full and reactive. Thought process fairly linear. No delusions elicited. Denies audiovisual hallucinations and does not appear internally stimulated. Denies suicidal or homicidal ideation, intent, or plan and contracts for safety. Insight and judgment likely chronically poor. Pt Condition on Discharge: Stable Discharge Disposition: Disch w/ Home Health Serv Discharge Instructions Diet Instructions: As Tolerated, No Restrictions Activities you can perform: Weight Bearing as Melissa Scheduled Appointment: as per counselor's notes New Medications: Cholecalciferol (D 1000) 1,000 Unit Tab 2000 UNITS PO DAILY Low Vitamin D Days 15 Ref 1 TAB Donepezil HCl (Aricept) 5 Mg Tablet 5 MG PO HS Mental Health Days 15 Ref [address] (Duloxetine DR) 30 Mg Capdr 30 MG PO BID Mental Health Days 15 Ref 1 CAP Folic Acid (Folic Acid) 1 Mg Tablet 1 MG PO DAILY Nutritional Supplement Days 30 Ref 0 TAB Thiamine HCl (Gnp Vitamin B-1) 100 Mg Tab 100 MG PO DAILY Nutritional Supplement Days 30 Ref 0 TAB Changed Medications: Atenolol (Atenolol) 25 Mg Tab 25 MG PO DAILY Blood Pressure Management Days 15 Ref 1 TAB (Changed from: 25 ; Removed Quantity; Refills: 0) Discontinued Medications: Alprazolam (Alprazolam) 0.25 Mg Tab 0.25 MG PO Q6H PRN ANXIETY Ref [address] (Duloxetine DR) 20 Mg Capdr 20 MG PO DAILY #30 Ref 0 CAP Zolpidem (Zolpidem) 10 Mg Tab 10 MG PO HS PRN INSOMNIA Ref 0 TAB Discharge Time <= 30 minutes Discharge/Advance Care Plan Health Problems: (1) Mild neurocognitive disorder (2) Depression (3) Alcohol abuse Goals to promote your health * To prevent worsening of your condition and complications * To maintain your health at the optimal level Directions to meet your goals Take your medications as prescribed Follow your dietary instruction Follow activity as directed Keep your appointments as scheduled Take your immunizations and boosters as scheduled If your symptoms worsen call your PCP, if no PCP go to Urgent Care Center or Emergency Room For 14/09 questions related to your inpatient stay or results of tests pending at discharge, please contact Dr. Jae Peña at Smoking is Dangerous to Your Health. Avoid second hand smoking Problem Qualifiers (1) Adjustment disorder: Qualified Code: F43.20 - Adjustment disorder, unspecified type (2) Depression: Qualified Code: F32.9 - Depression, unspecified depression type Jae Peña MD Sep 30, 2016 10:23
== END 2016-09-30 13:45 | disposition home or self-care (01) | DRG 882 ==
LOC: NEPE 22:06 → NEDA 09-19 07:49 → H250 09-19 10:20
PROVIDERS: ADMIT Psychiatry & Neurology Psychiatry; ATTEND Psychiatry & Neurology Psychiatry
DX: F43.25 Adjustment disorder with mixed disturbance of emotions and conduct (principal); N17.9 Acute kidney failure, unspecified; F03.91 Unspecified dementia, unspecified severity, with behavioral disturbance; R56.9 Unspecified convulsions; R45.851 Suicidal ideations; F10.239 Alcohol dependence with withdrawal, unspecified; N18.3 Chronic kidney disease, stage 3 (moderate); F41.8 Other specified anxiety disorders; I12.9 Hypertensive chronic kidney disease with stage 1 through stage 4 chronic kidney disease, or unspecified chronic kidney disease; E55.9 Vitamin D deficiency, unspecified; K58.9 Irritable bowel syndrome, unspecified; Y90.4 Blood alcohol level of 80-99 mg/100 ml; H91.90 Unspecified hearing loss, unspecified ear; Z86.73 Personal history of transient ischemic attack (TIA), and cerebral infarction without residual deficits
CPT/HCPCS: 70450; 72170; 80048; 80053; 80061; 80307; 81001; 82306; 82550; 82607; 83036; 83735; 84439; 84443; 85025; 86592; 93005; 96360; J7040; Q0163

== ENCOUNTER 2017-02-16 23:00 | Observation (INO) | payer MEDICARE, OTHER ==
[~2017-02-16 23:00] MED LIST changes: -ALPR0.25 PO; +ARIC5TAB6 PO; -DULO1CAP PO; +DULO1CAP2 PO; +FOLI1TAB6 PO; +THIA100 PO; +VITA1000 PO; -ZOLP10TA3 PO
[2017-02-16 23:16] VITALS: BP 170/94; PULSE 80; RESP 18; TEMP 97.7; O2SAT 99
[2017-02-16] MEDS ORDERED: SODIUM CHLORIDE 0.9% FLUSH 10 ML FLUSH IV FLUSH PRN (23:30)
[2017-02-16 23:40] LABS: BASOPHIL % 0.9 % (0.0-2.0); EOSINOPHIL # 0.1 TH/MM3 (0-0.4); EOSINOPHIL % 2.3 % (0.0-4.0); HEMOGLOBIN 12.5 GM/DL (11.6-15.3); LYMPH % 28.6 % (9.0-44.0); LYMPHOCYTE # 1.5 TH/MM3 (1.0-4.8); MEAN CELL VOLUME 96.4 FL (80.0-100.0); MEAN CORPUSCULAR HEMOGLOBIN 32.6 PG (27.0-34.0); MEAN CORPUSCULAR HGB CONC 33.9 % (32.0-36.0); MEAN PLATELET VOLUME 8.4 FL (7.0-11.0); MONO % 12.1 % (0.0-8.0); MONOCYTE # 0.6 TH/MM3 (0-0.9); NEUT % 56.1 % (16.0-70.0); PLATELET COUNT 212 TH/MM3 (150-450); RED BLOOD COUNT 3.84 MIL/MM3 (4.00-5.30); RED CELL DISTRIBUTION WIDTH 15.7 % (11.6-17.2); WHITE BLOOD COUNT 5.3 TH/MM3 (4.0-11.0)
[2017-02-16 23:48] LABS: AMORPHOUS SEDIMENT, URINE RARE; BILIRUBIN, URINE NEG (NEG); BLOOD, URINE NEG (NEG); GLUCOSE,URINE NEG (NEG); KETONE, URINE NEG (NEG); NITRITE,URINE NEG (NEG); SQUAMOUS EPITHELIAL CELL URINE <1 /hpf (0-5); TRANSITIONAL EPI CELLS, URINE <1 /hpf; URINE COLOR LIGHT-YELLOW (YELLW/STRAW); URINE LEUKOCYTE ESTERASE NEG (NEG)
[2017-02-17 00:04] LABS: ALKALINE PHOSPHATASE 118 U/L (45-117); TOTAL BILIRUBIN ADULT 0.8 MG/DL (0.2-1.0); TOTAL PROTEIN 5.9 GM/DL (6.4-8.2)
[2017-02-17 00:12] LABS: ALT (GPT) 26 U/L (10-53); AST (GOT) 35 U/L (15-37); BICARBONATE 26.7 MEQ/L (21.0-32.0); BLOOD UREA NITROGEN 12 MG/DL (7-18); CALCIUM 8.4 MG/DL (8.5-10.1); CHLORIDE 102 MEQ/L (98-107); CREATININE 1.13 MG/DL (0.50-1.00); GLOMERULAR FILTRATION RATE 46 ML/MIN (>89); GLUCOSE,RANDOM 83 MG/DL (74-106); SODIUM (NA) 136 MEQ/L (136-145)
--- NOTE | 2017-02-17 00:13 | RADRPT ---
EXAM DATE/TIME: 02/16/2017 23:48 [facility] COMPARISON: CT BRAIN W/O CONTRAST, September 21, 2016, 16:47. INDICATIONS : Altered mental status. RADIATION DOSE: 32.91 CTDIvol (mGy) ; Patient motion MEDICAL HISTORY : Stroke. ETOH SURGICAL HISTORY : None. ENCOUNTER: Initial ACUITY: 1 day PAIN SCALE: Non-responsive LOCATION: cranial TECHNIQUE: Multiple contiguous axial images were obtained of the head. Using automated exposure control and adj ustment of the mA and/or kV according to patient size, radiation dose was kept as low as reasonably a chievable to obtain optimal diagnostic quality images. DICOM format image data is available electro nically for review and comparison. FINDINGS: There is no evidence for intracranial hemorrhage, mass effect, mass lesions, or edema. The visualize d bony structures appear intact. Moderate degree of brain atrophy is seen. Moderate periventricular white matter changes are seen nonspecific mostly consistent with chronic small vessel ischemic change s. There are no signs of acute infarction for technique. Prominent extra-axial CSF collections are a gain seen due to atrophic changes worse in the right cranial fossa not significantly changed. CONCLUSION: Chronic and small vessel ischemic changes without any evidence for acute hemorrhage o r mass effect. Arnie Oliveira MD on February 17, 2017 at 0:10 Board Certified Radiologist. This report was verified electronically.
--- NOTE | 2017-02-17 00:14 | RADRPT ---
EXAM DATE/TIME: 02/16/2017 23:56 [facility] COMPARISON: No previous studies available for comparison. INDICATIONS : Short of breath. MEDICAL HISTORY : None. SURGICAL HISTORY : None. ENCOUNTER: Initial ACUITY: 1 day PAIN SCORE: 0/10 LOCATION: Bilateral chest FINDINGS: The lungs are clear without infiltrate, nodule, or mass. There is no appreciable pleural effusion fo r technique. Heart and mediastinum are unremarkable. There are atherosclerotic calcifications of the aorta due to chronic atherosclerotic disease. There are calcified breast implants bilaterally. CONCLUSION: No acute cardiopulmonary disease. Arnie Oliveira MD on February 17, 2017 at 0:12 Board Certified Radiologist. This report was verified electronically.
--- NOTE | 2017-02-17 00:40 | PD ---
HPI Chief Complaint: General Weakness Time Seen by Provider: 23:18 Travel History International Travel<30 days: No Contact w/Intl Traveler<30days: No History of Present Illness HPI CAD 6 year-old woman, presents to the emergency department via EMS for weakness falls and confusion. Family is with her, they describe gradual worsening generalized weakness. Patient drinks alcohol several times a week. They're concerned patient had multiple falls over the past week or so. During the process of getting her into an [facility]. No other infectious symptoms. History Past Medical History Narrative Medical Occasional alcohol Constipation Tetanus Vaccination: Unknown Influenza Vaccination: No Social History Alcohol Use: Yes (OCCASSIONALLY) Tobacco Use: No Allergies-Medications (Allergen,Severity, Reaction): Coded Allergies: No Known Allergies (Verified Allergy, Unknown, 02/17/17) Reported Meds & Prescriptions Reported Meds & Active Scripts Active Gnp Vitamin B-1 (Thiamine HCl) 100 Mg Tab 100 Mg PO DAILY 30 Days Folic Acid 1 Mg Tablet 1 Mg PO DAILY [address] (Duloxetine HCl) 30 Mg Capdr 30 Mg PO BID 15 Days Aricept (Donepezil HCl) 5 Mg Tablet 5 Mg PO HS 15 Days D 1000 (Cholecalciferol) 1,000 Unit Tab 2,000 Units PO DAILY 15 Days Atenolol 25 Mg Tab 25 Mg PO DAILY 15 Days Review of Systems Except as stated in HPI: all other systems reviewed are Neg Physical Exam Narrative GENERAL: Well-appearing 86 year-old woman, unsteady, frail appearing. SKIN: Focused skin assessment warm/dry. HEAD: Atraumatic. Normocephalic. EYES: Pupils equal and round. No scleral icterus. No injection or drainage. ENT: No nasal bleeding or discharge. Large bruising to the left side of the face. NECK: Trachea midline. No JVD. CARDIOVASCULAR: Regular rate and rhythm. No murmur appreciated. RESPIRATORY: No accessory muscle use. Clear to auscultation. Breath sounds equal bilaterally. GASTROINTESTINAL: Abdomen soft, non-tender, nondistended. Hepatic and splenic margins not palpable. MUSCULOSKELETAL: No obvious deformities. Decreased muscle bulk. No edema. NEUROLOGICAL: Awake and alert. No obvious cranial nerve deficits. Motor grossly within normal limits. Normal speech. Very unsteady gait, requiring 2 person assist. PSYCHIATRIC: Appropriate mood and affect; insight and judgment normal. Data Data Last Documented VS Vital Signs Date Time Temp Pulse Resp B/P (MAP) Pulse Ox O2 Delivery O2 Flow Rate FiO2 02/16/17 23:16 97.7 80 18 170/94 (119) 99 Room Air Orders Orders Electrocardiogram (02/16/17 23:18) Complete Blood Count With Diff (02/16/17 23:18) Comprehensive Metabolic Panel (02/16/17 23:18) Urinalysis - C+S If Indicated (02/16/17 23:18) Ct Brain W/O Iv Contrast(Rout) (02/16/17 23:18) Cath For Specimen (02/16/17 23:18) Sodium Chloride 0.9% Flush (Ns Flush) (02/16/17 23:30) Alcohol (Ethanol) (02/16/17 23:18) Chest, Single Ap (02/16/17 ) Place In Observation (02/17/17 ) Vital Signs (Adult) Q4H (02/17/17 00:55) Activity Oob With Assistance (02/17/17 00:55) Intake + Output [place].QSHIFT (02/17/17 00:55) Diet Heart Healthy (02/17/17 Breakfast) Sodium Chloride 0.9% Flush (Ns Flush) (02/17/17 01:00) Sodium Chloride 0.9% Flush (Ns Flush) (02/17/17 09:00) Acetaminophen (Tylenol) (02/17/17 01:00) Ondansetron Inj (Zofran Inj) (02/17/17 01:00) Basic Metabolic Panel (Bmp) (02/18/17 06:00) Complete Blood Count With Diff (02/18/17 06:00) Pt Request For Service (02/17/17 00:55) Case Management Consult (02/17/17 00:55) Naloxone Inj (Narcan Inj) (02/17/17 01:00) ^ Other Nursing Orders (02/17/17 00:59) Admit Order (Ed Use Only) (02/17/17 ) Labs Laboratory Tests Test 02/16/17 23:30 White Blood Count 5.3 TH/MM3 Red Blood Count 3.84 MIL/MM3 Hemoglobin 12.5 GM/DL Hematocrit 37.0 % Mean Corpuscular Volume 96.4 FL Mean Corpuscular Hemoglobin 32.6 PG Mean Corpuscular Hemoglobin Concent 33.9 % Red Cell Distribution Width 15.7 % Platelet Count 212 TH/MM3 Mean Platelet Volume 8.4 FL Neutrophils (%) (Auto) 56.1 % Lymphocytes (%) (Auto) 28.6 % Monocytes (%) (Auto) 12.1 % Eosinophils (%) (Auto) 2.3 % Basophils (%) (Auto) 0.9 % Neutrophils # (Auto) 3.0 TH/MM3 Lymphocytes # (Auto) 1.5 TH/MM3 Monocytes # (Auto) 0.6 TH/MM3 Eosinophils # (Auto) 0.1 TH/MM3 Basophils # (Auto) 0.0 TH/MM3 CBC Comment DIFF FINAL Differential Comment Urine Color LIGHT-YELLOW Urine Turbidity CLEAR Urine pH 7.0 Urine Specific [place] 1.004 Urine Protein NEG mg/dL Urine Glucose (UA) NEG mg/dL Urine Ketones NEG mg/dL Urine Occult Blood NEG Urine Nitrite NEG Urine Bilirubin NEG Urine Urobilinogen LESS THAN 2.0 MG/DL Urine Leukocyte Esterase NEG Urine RBC 1 /hpf Urine WBC 1 /hpf Urine Squamous Epithelial Cells <1 /hpf Urine Transitional Epithelial Cells <1 /hpf Urine Amorphous Sediment RARE Microscopic Urinalysis Comment CATH-CULT NOT IND Blood Urea Nitrogen 12 MG/DL Creatinine 1.13 MG/DL Random Glucose 83 MG/DL Total Protein 5.9 GM/DL Albumin 3.0 GM/DL Calcium Level 8.4 MG/DL Alkaline Phosphatase 118 U/L Aspartate Amino Transf (AST/SGOT) 35 U/L Alanine Aminotransferase (ALT/SGPT) 26 U/L Total Bilirubin 0.8 MG/DL Sodium Level 136 MEQ/L Potassium Level 3.7 MEQ/L Chloride Level 102 MEQ/L Carbon Dioxide Level 26.7 MEQ/L Anion Gap 7 MEQ/L Estimat Glomerular Filtration Rate 46 ML/MIN Ethyl Alcohol Level LESS THAN 3 MG/DL [facility] Medical Decision Making Medical Screen Exam Complete: Yes Emergency Medical Condition: Yes Interpretation(s) LABS: CBC is unremarkable. CMP is unremarkable. Protein low. UA is unremarkable. Alcohol negative. Head CT: Chronic small vessel skin changes without any evidence of acute hemorrhage or mass effect. Chest x-ray: Negative. Differential Diagnosis Weakness, electrolyte abnormality, stroke, intoxication, other Narrative Course Medical decision making 86 year-old woman, presents to the ED with judgment weakness, frequent falls, slight confusion. We'll check labs, CT, x-ray. Patient's covered in bruises, would likely benefit from physical therapy for steadying gait. : 86 year-old woman, unsteadiness weakness and falls. I personally gait tested the patient, and safe to walk unassisted. Recommend admit for observation, PT eval, likely rehabilitation. Diagnosis Primary Impression: Weakness Admitting Information Admitting Physician Requests: Observation Disposition: DISCHARGE HOME Condition: Stable Polo Ferguson MD Feb 17, 2017 00:40
[2017-02-17] MEDS ORDERED: ONDANSETRON HCL 4 MG/2 ML VIAL IVP PRN (01:00)
[2017-02-17] MEDS ORDERED: SODIUM CHLORIDE 0.9% FLUSH 10 ML FLUSH IV FLUSH PRN (01:00)
[2017-02-17] MEDS ORDERED: NALOXONE HCL 0.4 MG/ML AMP IV PUSH PRN (01:00)
[2017-02-17] MEDS ORDERED: LORazepam 2 MG/ML VIAL IV PUSH PRN ×3 (01:15)
[2017-02-17] MEDS ORDERED: FLUMAZENIL 0.5 MG/5 ML VIAL IV PUSH PRN (01:15)
--- NOTE | 2017-02-17 01:51 | HHI.HP ---
[facility] Service [facility] Primary Care Physician Zhen Vincent, DO Admission Diagnosis weakness, falls Diagnoses: Travel History International Travel<30 Days: No Contact w/Intl Traveler <30 Da: No History of Present Illness 86-year-old female with a past medical history significant for hypertension and depression was brought to the emergency department via EMS for continued weakness, falls and increasing confusion. Her daughter is bedside and explains that the patient has been steadily declining over the past 2 years although had acutely worsened over the past 2 months. The daughter reports multiple witnessed falls. The patient currently has ecchymosis covering the left lateral side of her face secondary to a fall she sustained 10 days ago. She also complains of right shoulder pain. Head CT and chest x-ray done in the emergency department were negative. The daughter reports that the patient drinks 1-2 large bottles of white wine daily. She states that her mother has had increasing confusion and often times will not know where she is. The daughter reports that her mother is supposed to take an antidepressant and an antihypertensive medication however she is noncompliant with these. The patient already he took her Ambien this evening, she will awaken but does not answer questions. Review of Systems Unable to obtain secondary to patient's clinical condition Past Family Social History Past Medical History Hypertension Depression TIA 17 years ago Past Surgical History Tonsillectomy Reported Medications Reported Meds & Active Scripts Active Gnp Vitamin B-1 (Thiamine HCl) 100 Mg Tab 100 Mg PO DAILY 30 Days Folic Acid 1 Mg Tablet 1 Mg PO DAILY [address] (Duloxetine HCl) 30 Mg Capdr 30 Mg PO BID 15 Days Aricept (Donepezil HCl) 5 Mg Tablet 5 Mg PO HS 15 Days D 1000 (Cholecalciferol) 1,000 Unit Tab 2,000 Units PO DAILY 15 Days Atenolol 25 Mg Tab 25 Mg PO DAILY 15 Days Allergies: Coded Allergies: No Known Allergies (Verified Allergy, Unknown, 02/17/17) Family History Noncontributory Social History Drinks 1-2 large bottles of Chardonnay daily. Quit smoking 17 years ago. Physical Exam Vital Signs Vital Signs Date Time Temp Pulse Resp B/P (MAP) Pulse Ox O2 Delivery O2 Flow Rate FiO2 02/16/17 23:16 97.7 80 18 170/94 (119) 99 Room Air Physical Exam GENERAL: female lying in bed SKIN: Ecchymoses surrounding left eye and left face, secondary to a fall sustained 10 days ago HEAD: Atraumatic. Normocephalic. No temporal or scalp tenderness. EYES: Pupils equal round and reactive. Extraocular motions intact. No scleral icterus. Left eye with scleral injection. ENT: Nose without bleeding, purulent drainage or septal hematoma. Airway patent. NECK: Trachea midline. No JVD or lymphadenopathy. Supple, nontender, no meningeal signs. CARDIOVASCULAR: Regular rate and rhythm. 3/6 DENICE. RESPIRATORY: Clear to auscultation. Breath sounds equal bilaterally. No wheezes , rales, or rhonchi. GASTROINTESTINAL: Abdomen soft, non-tender, nondistended. No hepato-splenomegaly , or palpable masses. No guarding. MUSCULOSKELETAL: Extremities without clubbing, cyanosis, or edema. No joint tenderness, effusion, or edema noted. No calf tenderness. NEUROLOGICAL: Sleeping, rouses to voice. Cranial nerves II through XII intact. Able to move all 4 extremities spontaneously. Laboratory Laboratory Tests Test 02/16/17 23:30 White Blood Count 5.3 Red Blood Count 3.84 Hemoglobin 12.5 Hematocrit 37.0 Mean Corpuscular Volume 96.4 Mean Corpuscular Hemoglobin 32.6 Mean Corpuscular Hemoglobin Concent 33.9 Red Cell Distribution Width 15.7 Platelet Count 212 Mean Platelet Volume 8.4 Neutrophils (%) (Auto) 56.1 Lymphocytes (%) (Auto) 28.6 Monocytes (%) (Auto) 12.1 Eosinophils (%) (Auto) 2.3 Basophils (%) (Auto) 0.9 Neutrophils # (Auto) 3.0 Lymphocytes # (Auto) 1.5 Monocytes # (Auto) 0.6 Eosinophils # (Auto) 0.1 Basophils # (Auto) 0.0 CBC Comment DIFF FINAL Differential Comment Urine Color LIGHT-YELLOW Urine Turbidity CLEAR Urine pH 7.0 Urine Specific [place] 1.004 Urine Protein NEG Urine Glucose (UA) NEG Urine Ketones NEG Urine Occult Blood NEG Urine Nitrite NEG Urine Bilirubin NEG Urine Urobilinogen LESS THAN 2.0 Urine Leukocyte Esterase NEG Urine RBC 1 Urine WBC 1 Urine Squamous Epithelial Cells <1 Urine Transitional Epithelial Cells <1 Urine Amorphous Sediment RARE Microscopic Urinalysis Comment CATH-CULT NOT IND Blood Urea Nitrogen 12 Creatinine 1.13 Random Glucose 83 Total Protein 5.9 Albumin 3.0 Calcium Level 8.4 Alkaline Phosphatase 118 Aspartate Amino Transf (AST/SGOT) 35 Alanine Aminotransferase (ALT/SGPT) 26 Total Bilirubin 0.8 Sodium Level 136 Potassium Level 3.7 Chloride Level 102 Carbon Dioxide Level 26.7 Anion Gap 7 Estimat Glomerular Filtration Rate 46 Ethyl Alcohol Level LESS THAN 3 Result Diagram: 02/16/17232902/16/172329 Caprini VTE Risk Assessment Caprini VTE Risk Assessment: Mod/High Risk (score >= 2) Caprini Risk Assessment Model Point Value = 1 Point Value = 2 Point Value = 3 Point Value = 5 Age 41-60 Minor surgery BMI > 25 kg/m2 Swollen legs Varicose veins or History of unexplained or recurrent spontaneous Oral contraceptives or hormone replacement Sepsis (< 1 month) Serious lung disease, including pneumonia (< 1 month) Abnormal pulmonary function Acute myocardial infarction Congestive heart failure (< 1 month) History of inflammatory bowel disease Medical patient at bed rest Age 61-74 Arthroscopic surgery Major open surgery (> 45 min) Laparoscopic surgery (> 45 min) Malignancy Confined to bed (> 72 hours) Immobilizing plaster cast Central venous access Age >= 75 History of VTE Family history of VTE Factor V Leiden Prothrombin [id number] Lupus anticoagulant Anticardiolipin antibodies Elevated serum homocysteine Heparin-induced thrombocytopenia Other congenital or acquired thrombophilia Stroke (< 1 month) Elective arthroplasty Hip, pelvis, or leg fracture Acute spinal cord injury (< 1 month) Prophylaxis Regimen Total Risk Factor Score Risk Level Prophylaxis Regimen 0-1 Low Early ambulation 2 Moderate Order ONE of the following: *Sequential Compression Device (SCD) *Heparin 5000 units SQ BID 3-4 Higher Order ONE of the following medications: *Heparin 5000 units SQ TID *Enoxaparin/Lovenox 40 mg SQ daily (WT < 150 kg, CrCl > 30 mL/min) *Enoxaparin/Lovenox 30 mg SQ daily (WT < 150 kg, CrCl > 10-29 mL/min) *Enoxaparin/Lovenox 30 mg SQ BID (WT < 150 kg, CrCl > 30 mL/min) AND/OR *Sequential Compression Device (SCD) 5 or more Highest Order ONE of the following medications: *Heparin 5000 units SQ TID (Preferred with Epidurals) *Enoxaparin/Lovenox 40 mg SQ daily (WT < 150 kg, CrCl > 30 mL/min) *Enoxaparin/Lovenox 30 mg SQ daily (WT < 150 kg, CrCl > 10-29 mL/min) *Enoxaparin/Lovenox 30 mg SQ BID (WT < 150 kg, CrCl > 30 mL/min) AND *Sequential Compression Device (SCD) Assessment and Plan Assessment and Plan Assessment/plan: 1. Frequent falls Secondary to deconditioning and alcohol intake PT consulted, appreciate recommendations Head CT within normal limits, chest x-ray with no signs of broken ribs Right shoulder x-ray pending as patient has been complaining of pain in her right shoulder and has fallen on it several times 2. Increasing confusion/dementia/inability to care for self Patient would benefit from SNF placement Daughter, who is power of consumer attorney, would like to have her mother placed. Case management has been consulted to assist with placement. Please contact the daughter, Francie Joseph at [phone]. Continue Aricept 3. Hypertension Resume home atenolol 4. Alcohol abuse Folate/thiamine/multivitamin CIWA protocol 5. Depression Resume home duloxetine 6. CKD Cr 1.13, baseline 1.20 Avoid nephrotoxic agents Monitor renal function FEN Regular Electrolytes: monitor and replete prn Holding pharmacologic anticoagulation 2/2 frequent falls Patient is unsafe to discharge to home. Case management consulted for assistance with placement. See above for her daughter's contact information. Araseli Page MD Feb 17, 2017 01:51
--- NOTE | 2017-02-17 02:23 | RADRPT ---
EXAM DATE/TIME: 02/17/2017 01:41 [place] COMPARISON: No previous studies available for comparison. INDICATIONS : Shoulder pain. MEDICAL HISTORY : None. SURGICAL HISTORY : None. ENCOUNTER: Initial ACUITY: 1 day PAIN SCORE: 0/10 LOCATION: Right shoulder FINDINGS: No definite fractures, or dislocations are identified. No definite lytic or sclerotic lesion is seen . Slight osteopenia is seen. The joint space is well maintained. CONCLUSION: Slight osteopenia. Arnie Oliveira MD on February 17, 2017 at 2:20 Board Certified Radiologist. This report was verified electronically.
[2017-02-17 02:29] VITALS: BP 143/79; PULSE 73; RESP 18; O2SAT 95
[2017-02-17 03:27] VITALS: BP 172/96; PULSE 73; RESP 18; TEMP 98.4; O2SAT 96
[2017-02-17] MEDS ORDERED: cloNIDine HCL 0.1 MG TAB PO PRN (08:30)
[2017-02-17 08:52] VITALS: BP 146/85; PULSE 76; RESP 18; TEMP 97.6; O2SAT 96
[2017-02-17] MEDS: ATENOLOL 25 MG TAB PO SCH (09:07)
[2017-02-17] MEDS: SODIUM CHLORIDE 0.9% FLUSH 10 ML FLUSH IV FLUSH SCH ×2 (09:07→22:25)
[2017-02-17] MEDS: LORazepam 1 MG TAB PO PRN (09:07)
[2017-02-17] MEDS: THIAMINE HCL 100 MG TAB PO SCH (09:07)
[2017-02-17] MEDS: MULTIVITAMINS/MINERALS THERAPEUTIC TAB PO SCH (09:07)
[2017-02-17] MEDS: DULoxetine HCl DR 30 MG CAP PO SCH ×2 (09:07→22:25)
[2017-02-17] MEDS: FOLIC ACID 1 MG TAB PO SCH (09:07)
[2017-02-17 12:27] VITALS: BP 146/73; PULSE 63; RESP 18; TEMP 97.5; O2SAT 96
--- NOTE | 2017-02-17 13:40 | HHI.PR ---
Subjective Remarks Follow up for falls, weakness, confusion, alcohol abuse. The patient is very drowsy, difficult to obtain information, falls asleep consistently throughout conversation. She does admit to falling more recently. She admits to drinking wine but does not quantify how much. She denies any specific medical complaints. Objective Vitals Vital Signs Date Time Temp Pulse Resp B/P (MAP) Pulse Ox O2 Delivery O2 Flow Rate FiO2 02/17/17 12:27 97.5 63 18 146/73 (97) 96 02/17/17 08:52 97.6 76 18 146/85 (105) 96 02/17/17 03:27 98.4 73 18 172/96 (121) 96 02/17/17 02:31 02/17/17 02:29 73 18 143/79 (100) 95 Nasal Cannula 2.00 02/16/17 23:16 97.7 80 18 170/94 (119) 99 Room Air Result Diagram: 02/16/17 2330 02/16/17 2330 Imaging Last Impressions Shoulder X-Ray 02/17/17 0000 Signed Impressions: Service Date/Time: Friday, February 17, 2017 01:41 - CONCLUSION: Slight osteopenia. Arnie Oliveira MD Head CT 02/16/17 2318 Signed Impressions: Service Date/Time: Thursday, February 16, 2017 23:48 - CONCLUSION: Chronic and small vessel ischemic changes without any evidence for acute hemorrhage or mass effect. Arnie Oliveira MD Chest X-Ray 02/16/17 0000 Signed Impressions: Service Date/Time: Thursday, February 16, 2017 23:56 - CONCLUSION: No acute cardiopulmonary disease. Arnie Oliveira MD Objective Remarks GENERAL: Well-nourished, well-developed elderly female patient in [facility]. SKIN: Warm and dry. No rash. HEENT: Normocephalic. Left facial/periorbital ecchymosis with left scleral injection. Pupils equal and round. Mucous membranes pink and moist. CARDIOVASCULAR: Regular rate and rhythm. S1, S2 noted. 2/6 systolic murmur noted. RESPIRATORY: No accessory muscle use. Clear to auscultation. Breath sounds equal bilaterally. GASTROINTESTINAL: Abdomen soft, non-tender, nondistended. Normoactive bowel sounds x4. MUSCULOSKELETAL: No obvious deformities. Extremities without clubbing, cyanosis , or edema. NEUROLOGICAL: Awake and alert. No obvious cranial nerve deficits. Motor grossly within normal limits. 5/5 muscle strength in bilateral upper and lower extremities. Normal speech. PSYCHIATRIC: Appropriate mood and affect Medications and IVs Current Medications Medications (Trade) Dose Ordered Sig/K[place]ena Route Start Time Stop Time Status Last Admin (NS Flush) 2 ml UNSCH PRN IV FLUSH 02/17/17 01:00 (NS Flush) 2 ml BID IV FLUSH 02/17/17 09:00 02/17/17 09:07 (Tylenol) 650 mg Q4H PRN PO 02/17/17 01:00 (Zofran Inj) 4 mg Q6H PRN IVP 02/17/17 01:00 (Narcan Inj) 0.4 mg UNSCH PRN IV PUSH 02/17/17 01:00 (Folate) 1 mg DAILY PO 02/17/17 09:00 02/22/17 08:59 02/17/17 09:07 (Vitamin B1) 100 mg DAILY PO 02/17/17 09:00 02/17/17 09:07 (Theragran M Tab) 1 tab DAILY PO 02/17/17 09:00 02/22/17 08:59 02/17/17 09:07 (Romazicon Inj) 0.2 mg Q1M PRN IV PUSH 02/17/17 01:15 (Ativan) 1 mg Q4H PRN PO 02/17/17 01:15 (Ativan Inj) 1 mg Q4H PRN IV PUSH 02/17/17 01:15 (Ativan) 2 mg Q2H PRN PO 02/17/17 01:15 (Ativan Inj) 2 mg Q2H PRN IV PUSH 02/17/17 01:15 (Ativan Inj) 2 mg Q1H PRN IV PUSH 02/17/17 01:15 (Ativan Inj) 2 mg Q15M PRN IV PUSH 02/17/17 01:15 (Tenormin) 25 mg DAILY PO 02/17/17 09:00 02/17/17 09:07 (Aricept) 5 mg HS PO 02/17/17 21:00 (Cymbalta Dr) 30 mg BID PO 02/17/17 09:00 02/17/17 09:07 (Catapres) 0.1 mg Q6H PRN PO 02/17/17 08:30 A/P Problem List: (1) Frequent falls ICD Code: R29.6 - Repeated falls (2) Impaired mobility and ADLs ICD Code: Z74.09 - Other reduced mobility (3) Weakness ICD Code: R53.1 - Weakness Status: Acute (4) Alcohol abuse ICD Code: F10.10 - Alcohol abuse, uncomplicated Status: Acute (5) Hypertension ICD Code: I10 - Essential (primary) hypertension Status: Chronic Assessment and Plan 86-year-old female with a past medical history significant for hypertension and depression was brought to the emergency department via EMS for continued weakness, falls and increasing confusion. Frequent falls: Suspect secondary to deconditioning and alcohol abuse. -Head CT images reviewed, no acute findings. CXR reviewed, no fracture. Right Shoulder xray reviewed, no fracture. -UA negative. No signs of infection. -PT consulted,recommends rehab -Case management consulted to assist with discharge planning Encephalopathy/Increasing confusion/dementia/inability to care for self -Patient would definitely benefit from SNF placement -Daughter, who is power of deputy commonwealth's attorney, would like to have patient placed. Case management consulted to assist with placement. Please contact the daughter , Francie Joseph at [phone]. -Continue Aricept Hypertension: chronic, uncontrolled, suspect secondary to noncompliance with medications -Resume home atenolol -Monitor BP, adjust antihypertensives as needed Alcohol abuse: patient drinks 1-2bottles of wine daily per the daughter -Continue on Folate/thiamine/multivitamin -Continue CIWA protocol Depression: chronic, noncompliant with meds at home -Resume home duloxetine CKD Stage III: Cr 1.13, baseline 1.20 -Avoid nephrotoxic agents -Monitor renal function DVT Prophylaxis: teds/SCDs. Holding pharmacologic anticoagulation secondary to frequent falls Patient is unsafe to discharge to home. Case management consulted for assistance with placement. See above for her daughter's contact information. Elvira Ng PA-C Feb 17, 2017 13:40
--- NOTE | 2017-02-17 14:43 | EKG ---
Date Performed: 02/16/2017 Time Performed: 23:24:46 PTAGE: 86 years EKG: Sinus rhythm WITH OCCASIONAL VENTRICULAR PREMATURE COMPLEXES POSSIBLE RIGHT VENTRICULAR CONDUCTION DELAY INFERIOR MYOCARDIAL INFARCTION ABNORMAL ECG PREVIOUS TRACING : 09/18/2016 22.40 DOCTOR: Polo Lara Interpretating Date/Time 02/17/2017 14:43:22
[2017-02-17 16:32] VITALS: BP 138/68; PULSE 61; RESP 18; TEMP 97.6; O2SAT 94
[2017-02-17 22:08] VITALS: BP 131/68; PULSE 68; RESP 18; TEMP 98; O2SAT 97
[2017-02-17] MEDS: DONEPEZIL HCL 5 MG TAB PO SCH (22:25)
[2017-02-17] MEDS: LORazepam 2 MG/ML VIAL IV PUSH PRN (22:26)
[2017-02-18] VITALS: BP 147/84; PULSE 78; RESP 18; TEMP 98.7; O2SAT 95
[2017-02-18] MEDS: LORazepam 2 MG/ML VIAL IV PUSH PRN (03:17)
[2017-02-18 04:50] VITALS: BP 126/58; PULSE 84; RESP 18; TEMP 97.6; O2SAT 97
[2017-02-18 05:43] LABS: AUTOMATED NEUTROPHIL # 2.9 TH/MM3 (1.8-7.7); BASOPHIL % 0.7 % (0.0-2.0); EOSINOPHIL # 0.1 TH/MM3 (0-0.4); EOSINOPHIL % 2.3 % (0.0-4.0); HEMATOCRIT 35.1 % (35.0-46.0); HEMOGLOBIN 12.1 GM/DL (11.6-15.3); LYMPH % 20.1 % (9.0-44.0); LYMPHOCYTE # 0.9 TH/MM3 (1.0-4.8); MEAN CELL VOLUME 96.2 FL (80.0-100.0); MEAN CORPUSCULAR HEMOGLOBIN 33.3 PG (27.0-34.0); MEAN CORPUSCULAR HGB CONC 34.6 % (32.0-36.0); MEAN PLATELET VOLUME 9.1 FL (7.0-11.0); MONOCYTE # 0.5 TH/MM3 (0-0.9); NEUT % 64.9 % (16.0-70.0); PLATELET COUNT 202 TH/MM3 (150-450); RED BLOOD COUNT 3.65 MIL/MM3 (4.00-5.30); RED CELL DISTRIBUTION WIDTH 15.4 % (11.6-17.2); WHITE BLOOD COUNT 4.5 TH/MM3 (4.0-11.0)
[2017-02-18 06:02] LABS: ALBUMIN 2.9 GM/DL (3.4-5.0); ALT (GPT) 25 U/L (10-53); AST (GOT) 34 U/L (15-37); BICARBONATE 25.4 MEQ/L (21.0-32.0); BLOOD UREA NITROGEN 14 MG/DL (7-18); CALCIUM 8.9 MG/DL (8.5-10.1); CHLORIDE 102 MEQ/L (98-107); CREATININE 1.07 MG/DL (0.50-1.00); GLOMERULAR FILTRATION RATE 49 ML/MIN (>89); GLUCOSE,RANDOM 97 MG/DL (74-106); SODIUM (NA) 135 MEQ/L (136-145)
[2017-02-18 06:05] LABS: ALKALINE PHOSPHATASE 113 U/L (45-117); TOTAL PROTEIN 5.9 GM/DL (6.4-8.2)
[2017-02-18 07:50] VITALS: BP 176/93; PULSE 73; RESP 18; TEMP 97.5; O2SAT 94
[2017-02-18] MEDS: DULoxetine HCl DR 30 MG CAP PO SCH ×2 (09:00→22:57)
[2017-02-18] MEDS: FOLIC ACID 1 MG TAB PO SCH (09:00)
[2017-02-18] MEDS: THIAMINE HCL 100 MG TAB PO SCH (09:00)
[2017-02-18] MEDS: ATENOLOL 25 MG TAB PO SCH (09:00)
[2017-02-18] MEDS: MULTIVITAMINS/MINERALS THERAPEUTIC TAB PO SCH (09:00)
[2017-02-18] MEDS: SODIUM CHLORIDE 0.9% FLUSH 10 ML FLUSH IV FLUSH SCH ×2 (09:00→21:00)
--- NOTE | 2017-02-18 09:30 | HHI.PR ---
Subjective Remarks Follow up for falls, weakness, confusion, alcohol abuse. The patient is seen sitting upright in recliner at nurses station. She is awake, alert, oriented to self, [place], and states the year is 191 but corrects herself to 2017. She is not oriented to the events surrounding her admission. She admits she cannot take care of herself anymore. She states she just feels weak. She denies any headache, lightheadedness, chest pain, shortness of breath, or abdominal complaints. Objective Vitals Vital Signs Date Time Temp Pulse Resp B/P (MAP) Pulse Ox O2 Delivery O2 Flow Rate FiO2 02/18/17 07:50 97.5 73 18 176/93 (120) 94 02/18/17 04:50 97.6 84 18 126/58 (80) 97 02/18/17 00:00 98.7 78 18 147/84 (105) 95 02/17/17 22:08 98.0 68 18 131/68 (89) 97 02/17/17 16:32 97.6 61 18 138/68 (91) 94 02/17/17 12:27 97.5 63 18 146/73 (97) 96 Result Diagram: 02/18/17 0345 02/18/17 0345 Imaging Last Impressions Shoulder X-Ray 02/17/17 0000 Signed Impressions: Service Date/Time: Friday, February 17, 2017 01:41 - CONCLUSION: Slight osteopenia. Arnie Oliveira MD Head CT 02/16/17 2318 Signed Impressions: Service Date/Time: Thursday, February 16, 2017 23:48 - CONCLUSION: Chronic and small vessel ischemic changes without any evidence for acute hemorrhage or mass effect. Arnie Oliveira MD Chest X-Ray 02/16/17 0000 Signed Impressions: Service Date/Time: Thursday, February 16, 2017 23:56 - CONCLUSION: No acute cardiopulmonary disease. Arnie Oliveira MD Objective Remarks GENERAL: Well-nourished, well-developed elderly female patient in [facility]. SKIN: Warm and dry. No rash. HEENT: Normocephalic. Left facial/periorbital ecchymosis with left scleral injection. Pupils equal and round. Mucous membranes pink and moist. CARDIOVASCULAR: Regular rate and rhythm. S1, S2 noted. 2/6 systolic murmur noted. RESPIRATORY: No accessory muscle use. Clear to auscultation. Breath sounds equal bilaterally. GASTROINTESTINAL: Abdomen soft, non-tender, nondistended. Normoactive bowel sounds x4. MUSCULOSKELETAL: No obvious deformities. Extremities without clubbing, cyanosis , or edema. NEUROLOGICAL: Awake and alert. No obvious cranial nerve deficits. Motor grossly within normal limits. 5/5 muscle strength in bilateral upper and lower extremities. Normal speech. PSYCHIATRIC: Appropriate mood and affect. Insight and judgement limited. Medications and IVs Current Medications Medications (Trade) Dose Ordered Sig/Kw[place] Route Start Time Stop Time Status Last Admin (NS Flush) 2 ml UNSCH PRN IV FLUSH 02/17/17 01:00 (NS Flush) 2 ml BID IV FLUSH 02/17/17 09:00 02/17/17 22:25 (Tylenol) 650 mg Q4H PRN PO 02/17/17 01:00 (Zofran Inj) 4 mg Q6H PRN IVP 02/17/17 01:00 (Narcan Inj) 0.4 mg UNSCH PRN IV PUSH 02/17/17 01:00 (Folate) 1 mg DAILY PO 02/17/17 09:00 02/22/17 08:59 02/17/17 09:07 (Vitamin B1) 100 mg DAILY PO 02/17/17 09:00 02/17/17 09:07 (Theragran M Tab) 1 tab DAILY PO 02/17/17 09:00 02/22/17 08:59 02/17/17 09:07 (Romazicon Inj) 0.2 mg Q1M PRN IV PUSH 02/17/17 01:15 (Ativan) 1 mg Q4H PRN PO 02/17/17 01:15 02/17/17 09:07 (Ativan Inj) 1 mg Q4H PRN IV PUSH 02/17/17 01:15 (Ativan) 2 mg Q2H PRN PO 02/17/17 01:15 (Ativan Inj) 2 mg Q2H PRN IV PUSH 02/17/17 01:15 02/18/17 03:17 (Ativan Inj) 2 mg Q1H PRN IV PUSH 02/17/17 01:15 (Ativan Inj) 2 mg Q15M PRN IV PUSH 02/17/17 01:15 (Tenormin) 25 mg DAILY PO 02/17/17 09:00 02/17/17 09:07 (Aricept) 5 mg HS PO 02/17/17 21:00 02/17/17 22:25 (Cymbalta Dr) 30 mg BID PO 02/17/17 09:00 02/17/17 22:25 (Catapres) 0.1 mg Q6H PRN PO 02/17/17 08:30 A/P Problem List: (1) Frequent falls ICD Code: R29.6 - Repeated falls (2) Impaired mobility and ADLs ICD Code: Z74.09 - Other reduced mobility (3) Weakness ICD Code: R53.1 - Weakness Status: Acute (4) Alcohol abuse ICD Code: F10.10 - Alcohol abuse, uncomplicated Status: Acute (5) Hypertension ICD Code: I10 - Essential (primary) hypertension Status: Chronic Assessment and Plan 86-year-old female with a past medical history significant for hypertension and depression was brought to the emergency department via EMS for continued weakness, falls and increasing confusion. Frequent falls: Suspect secondary to deconditioning and alcohol abuse. -Head CT images reviewed, no acute findings. CXR reviewed, no fracture. Right Shoulder xray reviewed, no fracture. -UA negative. No signs of infection. -PT consulted,recommends rehab -Case management consulted to assist with discharge planning Encephalopathy/Increasing confusion/dementia/inability to care for self -Patient would definitely benefit from SNF placement -Daughter, who is power of tax associate attorney, would like to have patient placed. Case management consulted to assist with placement. Please contact the daughter , Francie Joseph at [phone]. -Continue Aricept Hypertension: chronic, uncontrolled, suspect secondary to noncompliance with medications -Resume home atenolol -Monitor BP, adjust antihypertensives as needed Alcohol abuse: patient drinks 1-2bottles of wine daily per the daughter -Continue on Folate/thiamine/multivitamin -Continue CIWA protocol Depression: chronic, noncompliant with meds at home -Resume home duloxetine CKD Stage III: Cr 1.13, baseline 1.20 -Avoid nephrotoxic agents -Monitor renal function DVT Prophylaxis: teds/SCDs. Holding pharmacologic anticoagulation secondary to frequent falls Patient is unsafe to discharge to home. Case management consulted for assistance with placement. See above for her daughter's contact information. Discharge Planning The patient is medically stable for discharge to SNF once arranged. Case management to assist with discharge planning. Elviar Ng PA-C Feb 18, 2017 9:30 am
[2017-02-18] MEDS ORDERED: THIA100 PO (09:32)
[2017-02-18] MEDS ORDERED: ATEN25TA PO (09:32)
[2017-02-18] MEDS ORDERED: DULO1CAP2 PO (09:32)
[2017-02-18] MEDS ORDERED: ARIC5TAB6 PO (09:32)
--- NOTE | 2017-02-18 09:33 | HHI.DCPOC ---
Discharge Care Plan Diagnosis: (1) Frequent falls (2) Impaired mobility and ADLs (3) Hypertension (4) Alcohol abuse (5) Weakness (6) Depression Goals to Promote Your Health * To prevent worsening of your condition and complications * To maintain your health at the optimal level Directions to Meet Your Goals Take your medications as prescribed Follow your dietary instruction Follow activity as directed Keep your appointments as scheduled Take your immunizations and boosters as scheduled If your symptoms worsen call your PCP, if no PCP go to Urgent Care Center or Emergency Room Smoking is Dangerous to Your Health. Avoid second hand smoke Call the 24-hour hour crisis hotline for domestic abuse at Elvira Ng PA-C Feb 18, 2017 9:33 am
[2017-02-18] MEDS: LORazepam 1 MG TAB PO PRN (10:54)
[2017-02-18 11:21] VITALS: BP 125/71; PULSE 79; RESP 18; TEMP 97.8; O2SAT 94
[2017-02-18 15:44] VITALS: BP 154/72; PULSE 78; RESP 18; TEMP 97.4; O2SAT 96
[2017-02-18] MEDS: LORazepam 2 MG TAB PO PRN (16:22)
[2017-02-18] MEDS ORDERED: ZOLP10TA3 PO (16:22)
[2017-02-18] MEDS ORDERED: ALPR1TAB3 PO (16:22)
[2017-02-18] MEDS: ALPRAZolam 1 MG TAB PO PRN (18:03)
[2017-02-18 19:56] VITALS: BP 145/73; PULSE 71; RESP 18; TEMP 98.2; O2SAT 95
[2017-02-18] MEDS: DONEPEZIL HCL 5 MG TAB PO SCH (22:57)
[2017-02-19 05:00] VITALS: BP 134/73; PULSE 80; RESP 18; TEMP 96.7; O2SAT 92
[2017-02-19 06:55] VITALS: BP 109/72; PULSE 84; RESP 18; TEMP 98; O2SAT 97
[2017-02-19] MEDS: THIAMINE HCL 100 MG TAB PO SCH (08:13)
[2017-02-19] MEDS: FOLIC ACID 1 MG TAB PO SCH (08:14)
[2017-02-19] MEDS: ATENOLOL 25 MG TAB PO SCH (08:14)
[2017-02-19] MEDS: SODIUM CHLORIDE 0.9% FLUSH 10 ML FLUSH IV FLUSH SCH ×2 (08:14→20:38)
[2017-02-19] MEDS: DULoxetine HCl DR 30 MG CAP PO SCH ×2 (08:14→20:38)
[2017-02-19] MEDS: MULTIVITAMINS/MINERALS THERAPEUTIC TAB PO SCH (08:14)
[2017-02-19] MEDS: ALPRAZolam 1 MG TAB PO PRN (08:14)
--- NOTE | 2017-02-19 10:05 | HHI.PR ---
Subjective Remarks Follow up for falls, weakness, confusion, alcohol abuse. The patient is awake, alert, oriented to self and the year only. She states she is in the "[place]". She is able to tell me her daughter's name is Francie. She denies any specific medical complaints. No acute events. Vital signs reviewed and stable. Patient discharged yesterday, awaiting placement. Objective Vitals Vital Signs Date Time Temp Pulse Resp B/P (MAP) Pulse Ox O2 Delivery O2 Flow Rate FiO2 02/19/17 06:55 98.0 84 18 109/72 (84) 97 02/19/17 05:00 96.7 80 18 134/73 (93) 92 02/18/17 19:56 98.2 71 18 145/73 (97) 95 02/18/17 15:44 97.4 78 18 154/72 (99) 96 02/18/17 11:21 97.8 79 18 125/71 (89) 94 I/O 02/18/17 02/18/17 02/18/17 02/19/17 02/19/17 02/19/17 07:00 15:00 23:00 07:00 15:00 23:00 Intake Total 200 ml Balance 200 ml Intake Oral 200 ml Result Diagram: 02/18/17 0345 02/18/17 0345 Imaging Last Impressions Shoulder X-Ray 02/17/17 0000 Signed Impressions: Service Date/Time: Friday, February 17, 2017 01:41 - CONCLUSION: Slight osteopenia. Arnie Oliveira MD Head CT 02/16/17 2318 Signed Impressions: Service Date/Time: Thursday, February 16, 2017 23:48 - CONCLUSION: Chronic and small vessel ischemic changes without any evidence for acute hemorrhage or mass effect. Arnie Oliveira MD Chest X-Ray 02/16/17 0000 Signed Impressions: Service Date/Time: Thursday, February 16, 2017 23:56 - CONCLUSION: No acute cardiopulmonary disease. Arnie Oliveira MD Objective Remarks GENERAL: Well-nourished, well-developed elderly female patient in [facility]. SKIN: Warm and dry. No rash. HEENT: Normocephalic. Left facial/periorbital ecchymosis with left scleral injection. Pupils equal and round. Mucous membranes pink and moist. CARDIOVASCULAR: Regular rate and rhythm. S1, S2 noted. 2/6 systolic murmur noted. RESPIRATORY: No accessory muscle use. Clear to auscultation. Breath sounds equal bilaterally. GASTROINTESTINAL: Abdomen soft, non-tender, nondistended. Normoactive bowel sounds x4. MUSCULOSKELETAL: No obvious deformities. Extremities without clubbing, cyanosis , or edema. NEUROLOGICAL: Awake and alert. No obvious cranial nerve deficits. Motor grossly within normal limits. 5/5 muscle strength in bilateral upper and lower extremities. Normal speech. PSYCHIATRIC: Appropriate mood and affect. Insight and judgement limited. Medications and IVs Current Medications Medications (Trade) Dose Ordered Sig/Kwabena Route Start Time Stop Time Status Last Admin (NS Flush) 2 ml UNSCH PRN IV FLUSH 02/17/17 01:00 (NS Flush) 2 ml BID IV FLUSH 02/17/17 09:00 02/19/17 08:14 (Tylenol) 650 mg Q4H PRN PO 02/17/17 01:00 (Zofran Inj) 4 mg Q6H PRN IVP 02/17/17 01:00 (Narcan Inj) 0.4 mg UNSCH PRN IV PUSH 02/17/17 01:00 (Folate) 1 mg DAILY PO 02/17/17 09:00 02/22/17 08:59 02/19/17 08:14 (Vitamin B1) 100 mg DAILY PO 02/17/17 09:00 02/19/17 08:13 (Theragran M Tab) 1 tab DAILY PO 02/17/17 09:00 02/22/17 08:59 02/19/17 08:14 (Romazicon Inj) 0.2 mg Q1M PRN IV PUSH 02/17/17 01:15 (Ativan) 1 mg Q4H PRN PO 02/17/17 01:15 02/18/17 10:54 (Ativan Inj) 1 mg Q4H PRN IV PUSH 02/17/17 01:15 (Ativan) 2 mg Q2H PRN PO 02/17/17 01:15 02/18/17 16:22 (Ativan Inj) 2 mg Q2H PRN IV PUSH 02/17/17 01:15 02/18/17 03:17 (Ativan Inj) 2 mg Q1H PRN IV PUSH 02/17/17 01:15 (Ativan Inj) 2 mg Q15M PRN IV PUSH 02/17/17 01:15 (Tenormin) 25 mg DAILY PO 02/17/17 09:00 02/19/17 08:14 (Aricept) 5 mg HS PO 02/17/17 21:00 02/18/17 22:57 (Cymbalta Dr) 30 mg BID PO 02/17/17 09:00 02/19/17 08:14 (Catapres) 0.1 mg Q6H PRN PO 02/17/17 08:30 (Xanax) 1 mg Q12HR PRN PO 02/18/17 16:45 02/19/17 08:14 A/P Problem List: (1) Frequent falls ICD Code: R29.6 - Repeated falls (2) Impaired mobility and ADLs ICD Code: Z74.09 - Other reduced mobility (3) Weakness ICD Code: R53.1 - Weakness Status: Acute (4) Alcohol abuse ICD Code: F10.10 - Alcohol abuse, uncomplicated Status: Acute (5) Hypertension ICD Code: I10 - Essential (primary) hypertension Status: Chronic Assessment and Plan 86-year-old female with a past medical history significant for hypertension and depression was brought to the emergency department via EMS for continued weakness, falls and increasing confusion. Frequent falls: Suspect secondary to deconditioning and alcohol abuse. -Head CT images reviewed, no acute findings. CXR reviewed, no fracture. Right Shoulder xray reviewed, no fracture. -UA negative. No signs of infection. -PT consulted,recommends rehab -Case management consulted to assist with discharge planning Encephalopathy/Increasing confusion/dementia/inability to care for self -Patient would definitely benefit from SNF placement -Daughter Francie Joseph at [phone], who is power of concrete form setter and finisher, would like to have patient placed. Case management consulted to assist with placement. -Continue Aricept Hypertension: chronic, uncontrolled, suspect secondary to noncompliance with medications -Resume home atenolol -Monitor BP, adjust antihypertensives as needed Alcohol abuse: patient drinks 1-2bottles of wine daily per the daughter -Continue on Folate/thiamine/multivitamin -Continue CIWA protocol Depression: chronic, noncompliant with meds at home -Resume home duloxetine CKD Stage III: Cr 1.13, baseline 1.20 -Avoid nephrotoxic agents -Monitor renal function DVT Prophylaxis: teds/SCDs. Holding pharmacologic anticoagulation secondary to frequent falls Patient is unsafe to discharge to home. Case management consulted for assistance with placement. Discharge Planning The patient is medically stable for discharge to SNF once arranged. Case management to assist with discharge planning. Elvira Ng PA-C Feb 19, 2017 10:05 am
[2017-02-19] MEDS: LORazepam 2 MG TAB PO PRN ×3 (10:39→17:24)
[2017-02-19 11:02] VITALS: BP 134/73; PULSE 87; RESP 18; TEMP 97.6; O2SAT 94
[2017-02-19] MEDS: ACETAMINOPHEN 325 MG TAB PO PRN (13:57)
[2017-02-19 15:59] VITALS: BP 159/66; PULSE 77; RESP 18; TEMP 97.6; O2SAT 96
[2017-02-19 20:06] VITALS: BP 135/74; PULSE 91; RESP 18; TEMP 97.9; O2SAT 92
[2017-02-19] MEDS: DONEPEZIL HCL 5 MG TAB PO SCH (20:38)
[2017-02-20] MEDS: LORazepam 2 MG/ML VIAL IV PUSH PRN (04:12)
[2017-02-20 07:27] VITALS: BP 182/112; PULSE 82; RESP 24; TEMP 97.4; O2SAT 94
--- NOTE | 2017-02-20 08:55 | HHI.PR ---
Subjective Remarks Follow up for falls, weakness, alcohol abuse/withdrawal. The patient is very drowsy, difficult to awake after receiving IV Ativan last night. She does not verbalize any medical complaints. Blood pressure noted to be elevated this morning however RN reports patient was agitated and tense with examination. Objective Vitals Vital Signs Date Time Temp Pulse Resp B/P (MAP) Pulse Ox O2 Delivery O2 Flow Rate FiO2 02/20/17 07:27 97.4 82 24 182/112 (135) 94 02/19/17 20:06 97.9 91 18 135/74 (94) 92 02/19/17 15:59 97.6 77 18 159/66 (97) 96 02/19/17 11:02 97.6 87 18 134/73 (93) 94 Result Diagram: 02/18/17 0345 02/18/17 0345 Imaging Last Impressions Shoulder X-Ray 02/17/17 0000 Signed Impressions: Service Date/Time: Friday, February 17, 2017 01:41 - CONCLUSION: Slight osteopenia. Arnie Oliveira MD Head CT 02/16/17 2318 Signed Impressions: Service Date/Time: Thursday, February 16, 2017 23:48 - CONCLUSION: Chronic and small vessel ischemic changes without any evidence for acute hemorrhage or mass effect. Arnie Oliveira MD Chest X-Ray 02/16/17 0000 Signed Impressions: Service Date/Time: Thursday, February 16, 2017 23:56 - CONCLUSION: No acute cardiopulmonary disease. Arnie Oliveira MD Objective Remarks GENERAL: Well-nourished, well-developed elderly female patient in [facility]. Drowsy and lethargic today. SKIN: Warm and dry. No rash. HEENT: Normocephalic. Left facial/periorbital ecchymosis with left scleral injection. Pupils equal and round. Mucous membranes pink and moist. CARDIOVASCULAR: Regular rate and rhythm. S1, S2 noted. 2/6 systolic murmur noted. RESPIRATORY: No accessory muscle use. Clear to auscultation. Breath sounds equal bilaterally. GASTROINTESTINAL: Abdomen soft, non-tender, nondistended. Normoactive bowel sounds x4. MUSCULOSKELETAL: No obvious deformities. Extremities without clubbing, cyanosis , or edema. NEUROLOGICAL: Awake and alert. No obvious cranial nerve deficits. Motor grossly within normal limits. Moving all extremities spontaneously. Normal speech. PSYCHIATRIC: Appropriate mood and affect. Insight and judgement limited. Procedures None. Medications and IVs Current Medications Medications (Trade) Dose Ordered Sig/Kwabena Route Start Time Stop Time Status Last Admin (NS Flush) 2 ml UNSCH PRN IV FLUSH 02/17/17 01:00 (NS Flush) 2 ml BID IV FLUSH 02/17/17 09:00 02/19/17 20:38 (Tylenol) 650 mg Q4H PRN PO 02/17/17 01:00 02/19/17 13:57 (Zofran Inj) 4 mg Q6H PRN IVP 02/17/17 01:00 (Narcan Inj) 0.4 mg UNSCH PRN IV PUSH 02/17/17 01:00 (Folate) 1 mg DAILY PO 02/17/17 09:00 02/22/17 08:59 02/19/17 08:14 (Vitamin B1) 100 mg DAILY PO 02/17/17 09:00 02/19/17 08:13 (Theragran M Tab) 1 tab DAILY PO 02/17/17 09:00 02/22/17 08:59 02/19/17 08:14 (Romazicon Inj) 0.2 mg Q1M PRN IV PUSH 02/17/17 01:15 (Ativan) 1 mg Q4H PRN PO 02/17/17 01:15 02/18/17 10:54 (Ativan Inj) 1 mg Q4H PRN IV PUSH 02/17/17 01:15 02/20/17 01:03 (Ativan) 2 mg Q2H PRN PO 02/17/17 01:15 02/19/17 17:24 (Ativan Inj) 2 mg Q2H PRN IV PUSH 02/17/17 01:15 02/20/17 04:12 (Ativan Inj) 2 mg Q1H PRN IV PUSH 02/17/17 01:15 (Ativan Inj) 2 mg Q15M PRN IV PUSH 02/17/17 01:15 (Tenormin) 25 mg DAILY PO 02/17/17 09:00 02/19/17 08:14 (Aricept) 5 mg HS PO 02/17/17 21:00 02/19/17 20:38 (Cymbalta Dr) 30 mg BID PO 02/17/17 09:00 02/19/17 20:38 (Catapres) 0.1 mg Q6H PRN PO 02/17/17 08:30 (Xanax) 1 mg Q12HR PRN PO 02/18/17 16:45 02/19/17 08:14 A/P Problem List: (1) Frequent falls ICD Code: R29.6 - Repeated falls (2) Impaired mobility and ADLs ICD Code: Z74.09 - Other reduced mobility (3) Weakness ICD Code: R53.1 - Weakness Status: Acute (4) Alcohol abuse ICD Code: F10.10 - Alcohol abuse, uncomplicated Status: Acute (5) Hypertension ICD Code: I10 - Essential (primary) hypertension Status: Chronic Assessment and Plan 86-year-old female with a past medical history significant for hypertension and depression was brought to the emergency department via EMS for continued weakness, falls and increasing confusion. Frequent falls: Suspect secondary to deconditioning and alcohol abuse. -Head CT images reviewed, no acute findings. CXR reviewed, no fracture. Right Shoulder xray reviewed, no fracture. -UA negative. No signs of infection. -PT consulted,recommends rehab -Case management consulted to assist with discharge planning Encephalopathy/Increasing confusion/dementia/inability to care for self -Patient would definitely benefit from SNF placement -Daughter Francie Joseph at [phone], who is power of civil litigation attorney, would like to have patient placed. Case management consulted to assist with placement. -Continue Aricept Hypertension: chronic, uncontrolled, suspect secondary to noncompliance with medications -Resume home atenolol -Monitor BP, adjust antihypertensives as needed Alcohol abuse/Withdrawal: patient drinks 1-2bottles of wine daily per the daughter -Continue on Folate/thiamine/multivitamin -D/c CIWA meds as patient extremely drowsy and unarousable with Ativan, continue patient's xanax prn Anxiety/Depression: chronic, noncompliant with meds at home -Resume home duloxetine and xanax prn CKD Stage III: Cr 1.13, baseline 1.20 -Avoid nephrotoxic agents -Monitor renal function DVT Prophylaxis: teds/SCDs. Holding pharmacologic anticoagulation secondary to frequent falls Patient is unsafe to discharge to home. Case management consulted for assistance with placement. Discharge Planning The patient is medically stable for discharge to SNF once arranged. Case management to assist with discharge planning. Elvira Ng PA-C Feb 20, 2017 08:55
[2017-02-20] MEDS: SODIUM CHLORIDE 0.9% FLUSH 10 ML FLUSH IV FLUSH SCH ×2 (09:00→20:58)
[2017-02-20 09:33] VITALS: BP 146/83; PULSE 75; RESP 24; O2SAT 97
[2017-02-20 11:44] VITALS: BP 170/92; PULSE 83; RESP 26; TEMP 97.2; O2SAT 97
[2017-02-20] MEDS: FOLIC ACID 1 MG TAB PO SCH (13:32)
[2017-02-20] MEDS: MULTIVITAMINS/MINERALS THERAPEUTIC TAB PO SCH (13:33)
[2017-02-20] MEDS: ATENOLOL 25 MG TAB PO SCH (13:33)
[2017-02-20] MEDS: DULoxetine HCl DR 30 MG CAP PO SCH ×2 (13:33→20:58)
[2017-02-20] MEDS: THIAMINE HCL 100 MG TAB PO SCH (13:33)
[2017-02-20 16:00] VITALS: BP 139/78; PULSE 66; RESP 24; TEMP 97.4; O2SAT 98
[2017-02-20 20:53] VITALS: BP 127/65; PULSE 67; RESP 18; TEMP 97.8; O2SAT 96
[2017-02-20] MEDS: DONEPEZIL HCL 5 MG TAB PO SCH (20:58)
[2017-02-21 00:20] VITALS: BP 137/93; PULSE 79; RESP 18; TEMP 98.6; O2SAT 94
[2017-02-21 03:39] VITALS: BP 143/84; PULSE 79; RESP 18; TEMP 98; O2SAT 93
[2017-02-21 07:49] VITALS: BP 134/79; PULSE 70; RESP 16; TEMP 97.9; O2SAT 94
--- NOTE | 2017-02-21 09:35 | HHI.PR ---
Subjective Remarks Follow up for falls, weakness, alcohol abuse/withdrawal. The patient is much more awake, alert, and coherent after stopping Ativan yesterday. She is oriented to [facility] and [facility], states the date is February 2016. She agrees she cannot take care of herself alone at home anymore. She has no medical complaints including no headache, lightheadedness, chest pain, shortness of breath, or abdominal complaints. Objective Vitals Vital Signs Date Time Temp Pulse Resp B/P (MAP) Pulse Ox O2 Delivery O2 Flow Rate FiO2 02/21/17 07:49 97.9 70 16 134/79 (97) 94 02/21/17 03:39 98.0 79 18 143/84 (103) 93 02/21/17 00:20 98.6 79 18 137/93 (108) 94 02/20/17 20:53 97.8 67 18 127/65 (85) 96 02/20/17 16:00 97.4 66 24 139/78 (98) 98 02/20/17 11:44 97.2 83 26 170/92 (118) 97 02/20/17 09:33 75 24 146/83 (104) 97 I/O 02/20/17 02/20/17 02/20/17 02/21/17 02/21/17 02/21/17 07:00 15:00 23:00 07:00 15:00 23:00 Output Total 300 ml Balance -300 ml Output Urine Total 300 ml # Voids 1 Result Diagram: 02/18/17 0345 02/18/17 0345 Imaging Last Impressions Shoulder X-Ray 02/17/17 0000 Signed Impressions: Service Date/Time: Friday, February 17, 2017 01:41 - CONCLUSION: Slight osteopenia. Arnie Oliveira MD Head CT 02/16/17 2318 Signed Impressions: Service Date/Time: Thursday, February 16, 2017 23:48 - CONCLUSION: Chronic and small vessel ischemic changes without any evidence for acute hemorrhage or mass effect. Arnie Oliveira MD Chest X-Ray 02/16/17 0000 Signed Impressions: Service Date/Time: Thursday, February 16, 2017 23:56 - CONCLUSION: No acute cardiopulmonary disease. Arnie Oliveira MD Objective Remarks GENERAL: Well-nourished, well-developed elderly female patient in [facility]. SKIN: Warm and dry. No rash. HEENT: Normocephalic. Left facial/periorbital ecchymosis with left scleral injection. Pupils equal and round. Mucous membranes pink and moist. CARDIOVASCULAR: Regular rate and rhythm. S1, S2 noted. 2/6 systolic murmur noted. RESPIRATORY: No accessory muscle use. Clear to auscultation. Breath sounds equal bilaterally. GASTROINTESTINAL: Abdomen soft, non-tender, nondistended. Normoactive bowel sounds x4. MUSCULOSKELETAL: No obvious deformities. Extremities without clubbing, cyanosis , or edema. NEUROLOGICAL: Awake and alert. No obvious cranial nerve deficits. Motor grossly within normal limits. Moving all extremities spontaneously. Normal speech. PSYCHIATRIC: Appropriate mood and affect. Insight and judgement limited. Procedures None. Medications and IVs Current Medications Medications (Trade) Dose Ordered Sig/Kwabena Route Start Time Stop Time Status Last Admin (NS Flush) 2 ml UNSCH PRN IV FLUSH 02/17/17 01:00 (NS Flush) 2 ml BID IV FLUSH 02/17/17 09:00 02/20/17 20:58 (Tylenol) 650 mg Q4H PRN PO 02/17/17 01:00 02/19/17 13:57 (Zofran Inj) 4 mg Q6H PRN IVP 02/17/17 01:00 (Narcan Inj) 0.4 mg UNSCH PRN IV PUSH 02/17/17 01:00 (Folate) 1 mg DAILY PO 02/17/17 09:00 02/22/17 08:59 02/20/17 13:32 (Vitamin B1) 100 mg DAILY PO 02/17/17 09:00 02/20/17 13:33 (Theragran M Tab) 1 tab DAILY PO 02/17/17 09:00 02/22/17 08:59 02/20/17 13:33 (Romazicon Inj) 0.2 mg Q1M PRN IV PUSH 02/17/17 01:15 (Tenormin) 25 mg DAILY PO 02/17/17 09:00 02/20/17 13:33 (Aricept) 5 mg HS PO 02/17/17 21:00 02/20/17 20:58 (Cymbalta Dr) 30 mg BID PO 02/17/17 09:00 02/20/17 20:58 (Catapres) 0.1 mg Q6H PRN PO 02/17/17 08:30 (Xanax) 1 mg Q12HR PRN PO 02/18/17 16:45 02/19/17 08:14 A/P Problem List: (1) Frequent falls ICD Code: R29.6 - Repeated falls (2) Impaired mobility and ADLs ICD Code: Z74.09 - Other reduced mobility (3) Weakness ICD Code: R53.1 - Weakness Status: Acute (4) Alcohol abuse ICD Code: F10.10 - Alcohol abuse, uncomplicated Status: Acute (5) Hypertension ICD Code: I10 - Essential (primary) hypertension Status: Chronic Assessment and Plan 86-year-old female with a past medical history significant for hypertension and depression was brought to the emergency department via EMS for continued weakness, falls and increasing confusion. Frequent falls: Suspect secondary to deconditioning and alcohol abuse. -Head CT images reviewed, no acute findings. CXR reviewed, no fracture. Right Shoulder xray reviewed, no fracture. -UA negative. No signs of infection. -PT consulted,recommends rehab -Case management consulted to assist with discharge planning Encephalopathy/Increasing confusion/dementia/inability to care for self -Patient would definitely benefit from SNF placement -Daughter Francie Joseph at [phone], who is power of workers compensation attorney, would like to have patient placed. Case management consulted to assist with placement. -Continue Aricept Hypertension: chronic, uncontrolled, suspect secondary to noncompliance with medications -Resume home atenolol -Monitor BP, adjust antihypertensives as needed Alcohol abuse/Withdrawal: patient drinks 1-2bottles of wine daily per the daughter -Continue on Folate/thiamine/multivitamin -D/c CIWA meds as patient extremely drowsy and unarousable with Ativan, continue patient's xanax prn -patient's mentation much improved today Anxiety/Depression: chronic, noncompliant with meds at home -Resume home duloxetine and xanax prn CKD Stage III: Cr 1.13, baseline 1.20 -Avoid nephrotoxic agents -Monitor renal function DVT Prophylaxis: teds/SCDs. Holding pharmacologic anticoagulation secondary to frequent falls Patient is unsafe to discharge to home. Case management consulted for assistance with placement. Discharge Planning The patient is medically stable for discharge to SNF once arranged. Case management to assist with discharge planning. Elvira Ng PA-C Feb 21, 2017 9:35 am
[2017-02-21] MEDS: MULTIVITAMINS/MINERALS THERAPEUTIC TAB PO SCH (10:02)
[2017-02-21] MEDS: THIAMINE HCL 100 MG TAB PO SCH (10:03)
[2017-02-21] MEDS: SODIUM CHLORIDE 0.9% FLUSH 10 ML FLUSH IV FLUSH SCH ×2 (10:03→20:46)
[2017-02-21] MEDS: DULoxetine HCl DR 30 MG CAP PO SCH ×2 (10:03→20:46)
[2017-02-21] MEDS: FOLIC ACID 1 MG TAB PO SCH (10:03)
[2017-02-21] MEDS: ATENOLOL 25 MG TAB PO SCH (10:03)
[2017-02-21] MEDS: ALPRAZolam 1 MG TAB PO PRN ×2 (10:12→20:47)
[2017-02-21 12:00] VITALS: BP 128/67; PULSE 73; RESP 16; TEMP 98.2; O2SAT 95
[2017-02-21] MEDS ORDERED: ALPRAZolam 1 MG TAB PO ONE (16:45)
[2017-02-21 17:04] VITALS: BP 118/69; PULSE 73; RESP 18; TEMP 97.9; O2SAT 97
[2017-02-21] MEDS: DONEPEZIL HCL 5 MG TAB PO SCH (20:47)
[2017-02-21 23:04] VITALS: BP 121/64; PULSE 72; RESP 18; TEMP 98.7; O2SAT 97
[2017-02-22] VITALS: BP 124/64; PULSE 79; RESP 18; TEMP 98; O2SAT 97
[2017-02-22 03:09] VITALS: BP 119/65; PULSE 72; RESP 20; TEMP 97.7; O2SAT 97
[2017-02-22 07:33] VITALS: BP 116/66; PULSE 74; RESP 18; TEMP 97.7; O2SAT 93
[2017-02-22] MEDS: ACETAMINOPHEN 325 MG TAB PO PRN (08:27)
[2017-02-22] MEDS: DULoxetine HCl DR 30 MG CAP PO SCH ×2 (08:30→22:12)
[2017-02-22] MEDS: SODIUM CHLORIDE 0.9% FLUSH 10 ML FLUSH IV FLUSH SCH ×2 (08:30→22:13)
[2017-02-22] MEDS: ATENOLOL 25 MG TAB PO SCH (08:31)
[2017-02-22] MEDS: THIAMINE HCL 100 MG TAB PO SCH (08:31)
--- NOTE | 2017-02-22 08:51 | HHI.PR ---
Subjective Remarks Follow up on patient with falls, weakness, alcohol abuse. Patient seen and examined. Patient complaining of constipation which is chronic. She had a small hard BM this morning. Reports intermittent nonradicular midsternal chest pain for the past week. Denies any associated dyspnea, palpitations, nausea or vomiting. Reports some lower abdominal discomfort for past 2 weeks. Denies any dysuria, hematuria, diarrhea, hematochezia or melena. Discussed with nursing staff, not eating very much. Drinking Ensure shakes. Objective Vitals Vital Signs Date Time Temp Pulse Resp B/P (MAP) Pulse Ox O2 Delivery O2 Flow Rate FiO2 02/22/17 07:33 97.7 74 18 116/66 (83) 93 02/22/17 03:09 97.7 72 20 119/65 (83) 97 02/22/17 00:00 98.0 79 18 124/64 (84) 97 02/21/17 23:04 98.7 72 18 121/64 (83) 97 02/21/17 17:04 97.9 73 18 118/69 (85) 97 02/21/17 12:00 98.2 73 16 128/67 (87) 95 I/O 02/21/17 02/21/17 02/21/17 02/22/17 02/22/17 02/22/17 07:00 15:00 23:00 07:00 15:00 23:00 # Voids 1 Result Diagram: 02/18/17 0345 02/18/17 0345 Imaging Last Impressions Shoulder X-Ray 02/17/17 0000 Signed Impressions: Service Date/Time: Friday, February 17, 2017 01:41 - CONCLUSION: Slight osteopenia. Arnie Oliveira MD Head CT 02/16/17 2318 Signed Impressions: Service Date/Time: Thursday, February 16, 2017 23:48 - CONCLUSION: Chronic and small vessel ischemic changes without any evidence for acute hemorrhage or mass effect. Arnie Oliveira MD Chest X-Ray 02/16/17 0000 Signed Impressions: Service Date/Time: Thursday, February 16, 2017 23:56 - CONCLUSION: No acute cardiopulmonary disease. Arnie Oliveira MD Objective Remarks GENERAL: Well-nourished, well-developed elderly female patient in [place]. Awake and alert. Slow but appropriate responses. SKIN: Warm and dry. No rash. (+)resolving ecchymosis over left eye. HEENT: Normocephalic. Pupils equal and round. EOMI. Mucous membranes pink and moist. CARDIOVASCULAR: Regular rate and rhythm. S1, S2 noted. 2/6 systolic murmur noted. Anterior chest wall nontender to palpation. RESPIRATORY: Nonlabored. Clear to auscultation. Breath sounds equal bilaterally. GASTROINTESTINAL: Abdomen soft, non-tender, nondistended. Normoactive bowel sounds x4. MUSCULOSKELETAL: No obvious deformities. Extremities without clubbing, cyanosis , or edema. NEUROLOGICAL: Awake and alert. No obvious cranial nerve deficits. Motor grossly within normal limits. Moving all extremities spontaneously. Normal speech. Slight tremor noted in both hands. PSYCHIATRIC: Appropriate mood and affect. Insight and judgement limited. Procedures None. Medications and IVs Current Medications Medications (Trade) Dose Ordered Sig/Kwabena Route Start Time Stop Time Status Last Admin (NS Flush) 2 ml UNSCH PRN IV FLUSH 02/17/17 01:00 (NS Flush) 2 ml BID IV FLUSH 02/17/17 09:00 02/22/17 08:30 (Tylenol) 650 mg Q4H PRN PO 02/17/17 01:00 02/22/17 08:27 (Zofran Inj) 4 mg Q6H PRN IVP 02/17/17 01:00 (Narcan Inj) 0.4 mg UNSCH PRN IV PUSH 02/17/17 01:00 (Folate) 1 mg DAILY PO 02/17/17 09:00 02/22/17 08:59 02/21/17 10:03 (Vitamin B1) 100 mg DAILY PO 02/17/17 09:00 02/22/17 08:31 (Theragran M Tab) 1 tab DAILY PO 02/17/17 09:00 02/22/17 08:59 02/21/17 10:02 (Romazicon Inj) 0.2 mg Q1M PRN IV PUSH 02/17/17 01:15 (Tenormin) 25 mg DAILY PO 02/17/17 09:00 02/22/17 08:31 (Aricept) 5 mg HS PO 02/17/17 21:00 02/21/17 20:47 (Cymbalta Dr) 30 mg BID PO 02/17/17 09:00 02/22/17 08:30 (Catapres) 0.1 mg Q6H PRN PO 02/17/17 08:30 (Xanax) 1 mg Q12HR PRN PO 02/18/17 16:45 02/21/17 20:47 A/P Problem List: (1) Frequent falls ICD Code: R29.6 - Repeated falls (2) Impaired mobility and ADLs ICD Code: Z74.09 - Other reduced mobility (3) Weakness ICD Code: R53.1 - Weakness Status: Acute (4) Alcohol abuse ICD Code: F10.10 - Alcohol abuse, uncomplicated Status: Acute (5) Hypertension ICD Code: I10 - Essential (primary) hypertension Status: Chronic Assessment and Plan 86-year-old female with a past medical history significant for hypertension and depression was brought to the emergency department via EMS for continued weakness, falls and increasing confusion. Intermittent chest pain x one week, nonradicular -?GERD, concern for gastritis/PUD secondary to EtOH use. Trial of PPI. -unlikely ACS. Obtain troponin level and EKG -monitor Frequent falls: Suspect secondary to deconditioning and alcohol abuse. -Head CT images reviewed, no acute findings. CXR reviewed, no fracture. Right Shoulder xray reviewed, no fracture. -UA negative. No signs of infection. -PT consulted,recommends rehab -Case management consulted to assist with discharge planning Encephalopathy/Increasing confusion/dementia/inability to care for self in combination with ongoing alcohol abuse -Patient would definitely benefit from SNF placement -Daughter Francie Joseph at [phone], who is power of roving sizer, would like to have patient placed. Case management consulted to assist with placement. -Continue Aricept Hypertension: chronic, uncontrolled, suspect secondary to noncompliance with medications -controlled at present -continue home atenolol -Monitor BP, adjust antihypertensives as needed Alcohol abuse/Withdrawal: patient drinks 1-2bottles of wine daily per the daughter -Continue on Folate/thiamine/multivitamin -D/c CIWA meds as patient extremely drowsy and unarousable with Ativan, continue patient's xanax prn Anxiety/Depression: chronic, noncompliant with meds at home -Continue home duloxetine and xanax prn Hyponatremia -asymptomatic -suspect secondary to poor po intake -small IVF bolus -encourage po intake -monitor as indicated CKD Stage III: Cr 1.07, baseline 1.20 -Avoid nephrotoxic agents -Monitor renal function Constipation, chronic -(+)small hard BM this am -begin bowel regimen -obtain TSH and phos level -monitor Hx of Vitamin D deficiency -Vitamin D level 12.4 09/20/16. Not on any supplementation. Obtain new Vitamin D level. DVT Prophylaxis: teds/SCDs. Holding pharmacologic anticoagulation secondary to frequent falls Patient is unsafe to discharge to home. Case management consulted for assistance with placement. Discussed with patient, nursing staff and Dr. Bravo Discharge Planning Patient is medically stable for discharge to SNF once arranged, case management to assisting with ongoing discharge planning. Macarena Stevenson Feb 22, 2017 08:51
[2017-02-22] MEDS ORDERED: DOCUSATE SODIUM 50 MG/SENNA 8.6 MG TAB PO ONE (09:00)
[2017-02-22] MEDS ORDERED: POLYETHYLENE GLYCOL 17 GM PKG PO ONE (09:00)
--- NOTE | 2017-02-22 09:00 | EKG ---
Date Performed: 02/22/2017 Time Performed: 06:58:37 PTAGE: 86 years EKG: Baseline artifact present Sinus rhythm MARKED LEFT AXIS DEVIATION POSSIBLE RIGHT VENTRICULAR CONDUCTION DELAY Cannot rule out ANTEROSEPTAL MYOCARDIAL INFARCTION ABNORMAL ECG INTERPRETATION BASED ON A DEFAULT AGE OF 40 YEARS Compared to prio r electrocardiogram, Premature ventricular contractions no longer present. PREVIOUS TRACING : 02/16/2017 23.24 DOCTOR: Chivo Gallegos Interpretating Date/Time 02/22/2017 08:59:03
[2017-02-22] MEDS ORDERED: PANTOPRAZOLE SOD 40 MG DELAYED RELEASE TAB PO ONE (09:15)
[2017-02-22] MEDS: DOCUSATE SODIUM 50 MG/SENNA 8.6 MG TAB PO SCH ×2 (10:01→22:12)
[2017-02-22] MEDS: ALPRAZolam 1 MG TAB PO PRN (10:02)
[2017-02-22 10:43] LABS: BICARBONATE 26.1 MEQ/L (21.0-32.0); BLOOD UREA NITROGEN 17 MG/DL (7-18); CALCIUM 9.1 MG/DL (8.5-10.1); CHLORIDE 100 MEQ/L (98-107); CREATININE 1.11 MG/DL (0.50-1.00); GLOMERULAR FILTRATION RATE 47 ML/MIN (>89); GLUCOSE,RANDOM 102 MG/DL (74-106); SODIUM (NA) 133 MEQ/L (136-145)
[2017-02-22 10:46] LABS: TROPONIN I LESS THAN 0.02 NG/ML (0.02-0.05)
[2017-02-22] MEDS ORDERED: SODIUM CHLOR 0.9% 250 ML INJ 250 ML IV ONE (11:15)
[2017-02-22 11:39] VITALS: BP 154/79; PULSE 82; RESP 20; TEMP 97.4; O2SAT 98
[2017-02-22 13:24] LABS: PHOSPHORUS 3.4 MG/DL (2.5-4.9)
[2017-02-22 16:36] VITALS: BP 111/69; PULSE 77; RESP 18; TEMP 97.5; O2SAT 100
[2017-02-22] MEDS ORDERED: ALPRAZolam 1 MG TAB PO PRN (17:30)
[2017-02-22] MEDS ORDERED: ERGOCALCIFEROL (VIT D2) 50,000 UNIT CAP PO ONE (17:30)
[2017-02-22 19:22] VITALS: BP 118/68; PULSE 68; RESP 18; TEMP 98.1; O2SAT 96
[2017-02-22] MEDS ORDERED: HALOPERIDOL LACTATE 5 MG/ML AMP IM PRN (22:00)
[2017-02-22] MEDS: DONEPEZIL HCL 5 MG TAB PO SCH (22:12)
[2017-02-23] VITALS (8 sets, daily range): BP systolic 83–164; BP diastolic 53–77; PULSE 57–90; RESP 18; TEMP 97.7–98.3; O2SAT 93–99
[2017-02-23] MEDS ORDERED: QUEtiapine FUMARATE 25 MG TAB PO ONE ×2 (02:45→20:15)
[2017-02-23] MEDS: ACETAMINOPHEN 325 MG TAB PO PRN (07:42)
[2017-02-23 08:29] LABS: AUTOMATED NEUTROPHIL # 2.2 TH/MM3 (1.8-7.7); BASOPHIL % 0.4 % (0.0-2.0); EOSINOPHIL # 0.1 TH/MM3 (0-0.4); HEMATOCRIT 35.2 % (35.0-46.0); HEMOGLOBIN 12.1 GM/DL (11.6-15.3); LYMPH % 28.2 % (9.0-44.0); LYMPHOCYTE # 1.2 TH/MM3 (1.0-4.8); MEAN CELL VOLUME 95.1 FL (80.0-100.0); MEAN CORPUSCULAR HEMOGLOBIN 32.8 PG (27.0-34.0); MEAN CORPUSCULAR HGB CONC 34.5 % (32.0-36.0); MEAN PLATELET VOLUME 8.3 FL (7.0-11.0); MONO % 15.1 % (0.0-8.0); MONOCYTE # 0.6 TH/MM3 (0-0.9); NEUT % 53.3 % (16.0-70.0); PLATELET COUNT 234 TH/MM3 (150-450); WHITE BLOOD COUNT 4.2 TH/MM3 (4.0-11.0)
[2017-02-23] MEDS ORDERED: POLYETHYLENE GLYCOL 17 GM PKG PO ONE (08:30)
--- NOTE | 2017-02-23 08:46 | HHI.PR ---
Subjective Remarks Follow up on patient with falls, weakness, alcohol abuse. Patient seen and examined. Patient more agitated this morning. She is confused. She pulled out her IV. Complaining of lower abdominal pain. Had small hard BM yesterday am, none reported since. She denies any chest pain or dyspnea. She denies any nausea or vomiting. She denies any dysuria or hematuria. Objective Vitals Vital Signs Date Time Temp Pulse Resp B/P (MAP) Pulse Ox O2 Delivery O2 Flow Rate FiO2 02/23/17 07:05 98.0 90 18 164/77 (106) 96 02/23/17 03:17 98.3 65 18 143/70 (94) 98 02/22/17 19:22 98.1 68 18 118/68 (85) 96 02/22/17 17:18 20 02/22/17 16:36 97.5 77 18 111/69 (83) 100 02/22/17 11:39 97.4 82 20 154/79 (104) 98 I/O 02/22/17 02/22/17 02/22/17 02/23/17 02/23/17 02/23/17 07:00 15:00 23:00 07:00 15:00 23:00 Intake Total 750 ml 520 ml Output Total 0 ml Balance 750 ml 520 ml Intake Oral 500 ml 520 ml IV Total 250 ml Stool Total 0 ml # Voids 1 3 3 Result Diagram: 02/22/17 1013 Imaging Last Impressions Shoulder X-Ray 02/17/17 0000 Signed Impressions: Service Date/Time: Friday, February 17, 2017 01:41 - CONCLUSION: Slight osteopenia. Arnie Oliveira MD Head CT 02/16/17 2318 Signed Impressions: Service Date/Time: Thursday, February 16, 2017 23:48 - CONCLUSION: Chronic and small vessel ischemic changes without any evidence for acute hemorrhage or mass effect. Arnie Oliveira MD Chest X-Ray 02/16/17 0000 Signed Impressions: Service Date/Time: Thursday, February 16, 2017 23:56 - CONCLUSION: No acute cardiopulmonary disease. Arnie Oliveira MD Objective Remarks GENERAL: Well-nourished, well-developed elderly female patient in NAD. Awake. Confused. Agitated attempting repeatedly to get out of the bed. SKIN: Warm and dry. No rash. (+)resolving ecchymosis over left eye. HEENT: Normocephalic. Pupils equal and round. EOMI. (+)left scleral injection. Mucous membranes pink and moist. CARDIOVASCULAR: Regular rate and rhythm. S1, S2 noted. 2/6 systolic murmur noted. RESPIRATORY: Nonlabored. Clear to auscultation. Breath sounds equal bilaterally. GASTROINTESTINAL: Abdomen soft, nondistended. (+)subjective tenderness to palpation lower quadrants. No guarding noted. Normoactive bowel sounds x4. MUSCULOSKELETAL: No obvious deformities. Extremities without clubbing, cyanosis , or edema. NEUROLOGICAL: Awake and alert. No obvious cranial nerve deficits. Motor grossly within normal limits. Moving all extremities spontaneously. No focal neurologic findings appreciated. Normal speech. PSYCHIATRIC: Confused. Oriented to self only. Insight and judgement limited. Procedures None. Medications and IVs Current Medications Medications (Trade) Dose Ordered Sig/Kwabena Route Start Time Stop Time Status Last Admin (NS Flush) 2 ml UNSCH PRN IV FLUSH 02/17/17 01:00 (NS Flush) 2 ml BID IV FLUSH 02/17/17 09:00 02/22/17 22:13 (Tylenol) 650 mg Q4H PRN PO 02/17/17 01:00 02/23/17 07:42 (Zofran Inj) 4 mg Q6H PRN IVP 02/17/17 01:00 (Narcan Inj) 0.4 mg UNSCH PRN IV PUSH 02/17/17 01:00 (Vitamin B1) 100 mg DAILY PO 02/17/17 09:00 02/22/17 08:31 (Romazicon Inj) 0.2 mg Q1M PRN IV PUSH 02/17/17 01:15 (Tenormin) 25 mg DAILY PO 02/17/17 09:00 02/22/17 08:31 (Aricept) 5 mg HS PO 02/17/17 21:00 02/22/17 22:12 (Cymbalta Dr) 30 mg BID PO 02/17/17 09:00 02/22/17 22:12 (Catapres) 0.1 mg Q6H PRN PO 02/17/17 08:30 (Lizzeth-Colace) 1 tab BID PO 02/22/17 09:00 02/22/17 22:12 (Protonix) 40 mg DAILY PO 02/23/17 09:00 (Xanax) 1 mg TID PRN PO 02/22/17 17:30 Future Hold 02/22/17 17:51 (Vitamin D3) 2,000 units DAILY PO 02/23/17 09:00 (Haldol Inj) 2 mg Q6H PRN IM 02/22/17 22:00 Future Hold 02/22/17 22:21 (SEROquel) 25 mg BID@09,12 PO 02/23/17 09:00 UNV A/P Problem List: (1) Frequent falls ICD Code: R29.6 - Repeated falls (2) Impaired mobility and ADLs ICD Code: Z74.09 - Other reduced mobility (3) Weakness ICD Code: R53.1 - Weakness Status: Acute (4) Alcohol abuse ICD Code: F10.10 - Alcohol abuse, uncomplicated Status: Acute (5) Hypertension ICD Code: I10 - Essential (primary) hypertension Status: Chronic Assessment and Plan 86-year-old female with a past medical history significant for hypertension and depression was brought to the emergency department via EMS for continued weakness, falls and increasing confusion. Intermittent chest pain x one week, nonradicular -no complaints of chest pain today -?GERD, concern for gastritis/PUD secondary to EtOH use. Trial of PPI. -unlikely ACS. Troponin level negative. -monitor Frequent falls: Suspect secondary to deconditioning and alcohol abuse. -Head CT images reviewed, no acute findings. CXR reviewed, no fracture. Right Shoulder xray reviewed, no fracture. -UA negative. No signs of infection. -PT consulted,recommends rehab -Case management consulted to assist with discharge planning Encephalopathy/Increasing confusion/dementia/inability to care for self in combination with ongoing alcohol abuse -increased confusion and agitation this am. Hold Xanax and Haldol. Obtain UA and KUB. Today's labs pending. -Patient would definitely benefit from SNF placement. Daughter Francie Joseph at [phone], who is power of claims attorney, would like to have patient placed. Case management consulted to assist with placement. -Continue Aricept Hypertension: chronic, uncontrolled, suspect secondary to noncompliance with medications -hypotensive, likely medication side effect. IVF bolus ordered. Hold all sedating medications. -hold Atenolol for now -Monitor BP, adjust antihypertensives as needed Alcohol abuse/Withdrawal: patient drinks 1-2bottles of wine daily per the daughter -Continue on Folate/thiamine/multivitamin -D/C CIWA meds as patient extremely drowsy and unarousable with Ativan, continue patient's xanax prn Anxiety/Depression: chronic, noncompliant with meds at home -Continue home duloxetine Hyponatremia -suspect secondary to poor po intake -small IVF bolus ordered yesterday -encourage po intake -monitor as indicated, repeat labs pending CKD Stage III: Cr 1.11, baseline 1.20 -Avoid nephrotoxic agents -Monitor renal function Constipation, chronic c/o lower abdominal pain -(+)small hard BM yesterday -continue bowel regimen. Dose of Miralax now. Obtain KUB and UA. -TSH level 1.380, phos level 3.4 -monitor Hx of Vitamin D deficiency -Vitamin D level 10.3. Ergocalciferol 50,000 units ordered x 1 with Vitamin D supplement 2000u daily. DVT Prophylaxis: teds/SCDs. Holding pharmacologic anticoagulation secondary to frequent falls Patient is unsafe to discharge to home. Case management consulted for assistance with placement. Discussed with patient, nursing staff and Dr. Bravo Discharge Planning Patient is medically stable for discharge to SNF once arranged, case management to assisting with ongoing discharge planning. Macarena Stevenson Feb 23, 2017 08:46
[2017-02-23 08:53] LABS: BICARBONATE 25.8 MEQ/L (21.0-32.0); CALCIUM 9.2 MG/DL (8.5-10.1); CREATININE 1.1 MG/DL (0.50-1.00)
[2017-02-23] MEDS ORDERED: QUEtiapine FUMARATE 25 MG TAB PO SCH (09:00)
[2017-02-23] MEDS: SODIUM CHLORIDE 0.9% FLUSH 10 ML FLUSH IV FLUSH SCH ×2 (09:00→21:00)
[2017-02-23] MEDS: DOCUSATE SODIUM 50 MG/SENNA 8.6 MG TAB PO SCH ×2 (10:38→22:18)
[2017-02-23] MEDS: PANTOPRAZOLE SOD 40 MG DELAYED RELEASE TAB PO SCH (10:38)
[2017-02-23] MEDS: DULoxetine HCl DR 30 MG CAP PO SCH ×2 (10:38→22:17)
[2017-02-23] MEDS: THIAMINE HCL 100 MG TAB PO SCH (10:39)
[2017-02-23] MEDS: ATENOLOL 25 MG TAB PO SCH (10:39)
[2017-02-23] MEDS: CHOLECALCIFEROL (VIT D3) 1000 UNIT TAB PO SCH (10:39)
--- NOTE | 2017-02-23 10:42 | RADRPT ---
EXAM DATE/TIME: 02/23/2017 10:14 [facility] COMPARISON: No previous studies available for comparison. INDICATIONS : Abdomen pain for two days. MEDICAL HISTORY : Stroke. SURGICAL HISTORY : None. ENCOUNTER: Subsequent ACUITY: 2 days PAIN SCORE: 4/10 LOCATION: Bilateral Abdomen FINDINGS: The bowel gas is nonspecific. There are no signs of obstruction or free air for technique. No defini te calcified stones are identified for technique. There is lumbar scoliosis convexity towards the lef t with superimposed degenerative change. CONCLUSION: Nonspecific abdomen. Arnie Oliveira MD on February 23, 2017 at 10:40 Board Certified Radiologist. This report was verified electronically.
[2017-02-23] MEDS ORDERED: SODIUM CHLORID 0.9% 500 ML INJ 500 ML IV ONE (12:30)
[2017-02-23] MEDS: DONEPEZIL HCL 5 MG TAB PO SCH (22:17)
--- NOTE | 2017-02-23 23:19 | RADRPT ---
EXAM DATE/TIME: 02/23/2017 23:00 [facility] COMPARISON: No previous studies available for comparison. INDICATIONS : Pain in left hip, post fall. MEDICAL HISTORY : None. SURGICAL HISTORY : None. ENCOUNTER: Subsequent ACUITY: 1 week PAIN SCORE: 0/10 LOCATION: Left hip FINDINGS: Examination of the left hip was performed with AP Pelvis. The primary and secondary trabecular patte rn of the femoral neck is intact. Joint space narrowing with osteophyte production involving both hip s. No femoral head flattening. The acetabulum is grossly intact. Atherosclerotic calcifications noted . CONCLUSION: 1. No acute abnormality. 2. Osteoarthritis. Liborio Moseley Jr., MD on February 23, 2017 at 23:16 Board Certified Radiologist. This report was verified electronically.
[2017-02-24 07:19] VITALS: BP 162/73; PULSE 67; RESP 18; TEMP 97.6; O2SAT 100
[2017-02-24] MEDS: SODIUM CHLORIDE 0.9% FLUSH 10 ML FLUSH IV FLUSH SCH (09:00)
[2017-02-24] MEDS: DULoxetine HCl DR 30 MG CAP PO SCH (09:12)
[2017-02-24] MEDS: CHOLECALCIFEROL (VIT D3) 1000 UNIT TAB PO SCH (09:12)
[2017-02-24] MEDS: DOCUSATE SODIUM 50 MG/SENNA 8.6 MG TAB PO SCH (09:12)
[2017-02-24] MEDS: THIAMINE HCL 100 MG TAB PO SCH (09:13)
[2017-02-24] MEDS: PANTOPRAZOLE SOD 40 MG DELAYED RELEASE TAB PO SCH (09:13)
[2017-02-24] MEDS: ATENOLOL 25 MG TAB PO SCH (09:13)
--- NOTE | 2017-02-24 09:33 | HHI.PR ---
Subjective Remarks Follow up on patient with falls, weakness, alcohol abuse. Patient seen and examined. She is sitting up in bed awake. Not agitated this morning. Confused , oriented to self only. She denies any complaints of chest pain, dyspnea, nausea or vomiting. States her lower abdominal pain has improved. She denies any new medical complaints. Objective Vitals Vital Signs Date Time Temp Pulse Resp B/P (MAP) Pulse Ox O2 Delivery O2 Flow Rate FiO2 02/24/17 07:19 97.6 67 18 162/73 (102) 100 02/23/17 23:41 98.0 67 18 143/66 (91) 93 02/23/17 22:15 68 18 142/76 (98) 99 02/23/17 19:58 97.8 71 18 113/64 (80) 97 02/23/17 15:49 97.7 57 18 133/64 (87) 94 02/23/17 11:50 84/58 (67) Automatic Cuff 02/23/17 11:38 97.7 63 18 83/53 (63) 96 I/O 02/23/17 02/23/17 02/23/17 02/24/17 02/24/17 02/24/17 07:00 15:00 23:00 07:00 15:00 23:00 Intake Total 520 ml 500 ml Balance 520 ml 500 ml Intake Oral 520 ml IV Total 500 ml # Voids 3 # Bowel Movements 1 Result Diagram: 02/23/17 0702 02/23/17 0702 Imaging Last Impressions Hip and Pelvis X-Ray 02/23/17 0000 Signed Impressions: Service Date/Time: Thursday, February 23, 2017 23:00 - CONCLUSION: 1. No acute abnormality. 2. Osteoarthritis. Liborio Moseley Jr., MD Abdomen X-Ray 02/23/17 0000 Signed Impressions: Service Date/Time: Thursday, February 23, 2017 10:14 - CONCLUSION: Nonspecific abdomen. Arnie Oliveira MD Shoulder X-Ray 02/17/17 0000 Signed Impressions: Service Date/Time: Friday, February 17, 2017 01:41 - CONCLUSION: Slight osteopenia. Arnie Oliveira MD Head CT 02/16/17 0118 Signed Impressions: Service Date/Time: Thursday, February 16, 2017 23:48 - CONCLUSION: Chronic and small vessel ischemic changes without any evidence for acute hemorrhage or mass effect. Arnie Oliveira MD Chest X-Ray 02/16/17 0000 Signed Impressions: Service Date/Time: Thursday, February 16, 2017 23:56 - CONCLUSION: No acute cardiopulmonary disease. Arnie Oliveira MD Objective Remarks GENERAL: Well-nourished, well-developed elderly female patient in NAD. Awake sitting up in bed. Confused. SKIN: Warm and dry. No rash. (+)resolving ecchymosis over left eye. HEENT: Normocephalic. Pupils equal and round. EOMI. (+)left scleral injection. Mucous membranes pink and moist. CARDIOVASCULAR: Regular rate and rhythm. S1, S2 noted. 2/6 systolic murmur noted. RESPIRATORY: Nonlabored. Clear to auscultation. Breath sounds equal bilaterally. GASTROINTESTINAL: Abdomen soft, nondistended, nontender. No guarding noted. Normoactive bowel sounds x4. MUSCULOSKELETAL: No obvious deformities. Extremities without clubbing, cyanosis , or edema. NEUROLOGICAL: Awake and alert. No obvious cranial nerve deficits. Motor grossly within normal limits. Moving all extremities spontaneously. No focal neurologic findings appreciated. Normal speech. PSYCHIATRIC: Confused. Oriented to self only. Insight and judgement limited. Procedures None. Medications and IVs Current Medications Medications (Trade) Dose Ordered Sig/Kwabena Route Start Time Stop Time Status Last Admin (NS Flush) 2 ml UNSCH PRN IV FLUSH 02/17/17 01:00 (NS Flush) 2 ml BID IV FLUSH 02/17/17 09:00 02/22/17 22:13 (Tylenol) 650 mg Q4H PRN PO 02/17/17 01:00 02/23/17 07:42 (Zofran Inj) 4 mg Q6H PRN IVP 02/17/17 01:00 (Narcan Inj) 0.4 mg UNSCH PRN IV PUSH 02/17/17 01:00 (Vitamin B1) 100 mg DAILY PO 02/17/17 09:00 02/24/17 09:13 (Romazicon Inj) 0.2 mg Q1M PRN IV PUSH 02/17/17 01:15 (Tenormin) 25 mg DAILY PO 02/17/17 09:00 Future hold 02/24/17 09:13 (Aricept) 5 mg HS PO 02/17/17 21:00 02/23/17 22:17 (Cymbalta Dr) 30 mg BID PO 02/17/17 09:00 02/24/17 09:12 (Catapres) 0.1 mg Q6H PRN PO 02/17/17 08:30 (Lizzeth-Colace) 1 tab BID PO 02/22/17 09:00 02/24/17 09:12 (Protonix) 40 mg DAILY PO 02/23/17 09:00 02/24/17 09:13 (Xanax) 1 mg TID PRN PO 02/22/17 17:30 Future Hold 02/22/17 17:51 (Vitamin D3) 2,000 units DAILY PO 02/23/17 09:00 02/24/17 09:12 (Haldol Inj) 2 mg Q6H PRN IM 02/22/17 22:00 Future Hold 02/22/17 22:21 (SEROquel) 25 mg BID@09,12 PO 02/23/17 09:00 Future Hold 02/23/17 10:38 A/P Problem List: (1) Frequent falls ICD Code: R29.6 - Repeated falls (2) Impaired mobility and ADLs ICD Code: Z74.09 - Other reduced mobility (3) Weakness ICD Code: R53.1 - Weakness Status: Acute (4) Alcohol abuse ICD Code: F10.10 - Alcohol abuse, uncomplicated Status: Acute (5) Hypertension ICD Code: I10 - Essential (primary) hypertension Status: Chronic Assessment and Plan 86-year-old female with a past medical history significant for hypertension and depression was brought to the emergency department via EMS for continued weakness, falls and increasing confusion. Frequent falls: Suspect secondary to deconditioning and alcohol abuse. -Head CT images reviewed, no acute findings. CXR reviewed, no fracture. Right Shoulder xray reviewed, no fracture. -UA negative. No signs of infection. -PT consulted,recommends rehab -Case management consulted to assist with discharge planning. Plan for d/c to [facility] later today. Encephalopathy/Increasing confusion/dementia/inability to care for self in combination with ongoing alcohol abuse -Xanax discontinued secondary to worsening confusion -no agitation this am. Given dose of Seroquel last night. -Patient would definitely benefit from SNF placement. Daughter Francie Joseph at [phone], who is power of assistant county attorney, would like to have patient placed. Case management consulted to assist with placement. -Continue Aricept Hypertension: chronic, uncontrolled, suspect secondary to noncompliance with medications -episode of hypotension yesterday, likely medication side effect. Improved s /p IVF bolus. -resume home atenolol -Monitor BP, adjust antihypertensives as needed Alcohol abuse/Withdrawal: patient drinks 1-2bottles of wine daily per the daughter -Continue on Folate/thiamine/multivitamin -D/C CIWA meds as patient extremely drowsy and unarousable with Ativan Anxiety/Depression: chronic, noncompliant with meds at home -Continue home duloxetine Hyponatremia -suspect secondary to poor po intake -improved -encourage po intake -monitor as indicated CKD Stage III: Cr 1.10, baseline 1.20 -Avoid nephrotoxic agents -Monitor renal function Constipation, chronic -KUB unremarkable -s/p BM this am -Continue on bowel regimen Hx of Vitamin D deficiency -Vitamin D level 10.3. Ergocalciferol 50,000 units ordered x 1 with Vitamin D supplement 2000u daily. DVT Prophylaxis: teds/SCDs. Holding pharmacologic anticoagulation secondary to frequent falls Patient is unsafe to discharge to home. Case management consulted for assistance with placement. Discussed with patient, nursing staff and Dr. Beal Discharge Planning Patient is medically stable for discharge to SNF once arranged, case management to assisting with ongoing discharge planning. Patient to be discharged later today to SNF facility. Attending Statement patient was seen and examined today. awaiting discharge to SNF. Macarena Stevenson Feb 24, 2017 09:33 Castro Beal MD Feb 24, 2017 14:47
[2017-02-24 11:11] VITALS: BP 103/52; PULSE 83; RESP 18; TEMP 97.9; O2SAT 95
[2017-02-24] MEDS ORDERED: QUEtiapine FUMARATE 25 MG TAB PO SCH (21:00)
--- NOTE | 2017-02-25 09:00 | HHI.FF ---
Face to Face Verification Diagnosis: (1) Frequent falls (2) Impaired mobility and ADLs (3) Mild neurocognitive disorder Physical Therapy Order: Evaluate and Treat, Improve ambulation, Strength and gait training I have seen patient Johana Joseph on 02/25/17. My clinical findings support the need for the requested home health care services because: Deconditioned w/ increased weakness Limited ability to care for self Impaired cognition/judgement High risk of falls I certify that my clinical findings support that this patient is homebound because: Impaired cognitive ability/safety Unsteady gait/balance Unsafe to leave home unassisted Unable to use public transportation Macarena Stevenson Feb 25, 2017 09:00
--- NOTE | 2017-02-25 09:02 | HHI.FF ---
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 My clinical findings support the need for the requested home health care services because: Deconditioned w/ increased weakness Med compliance is questionable Limited ability to care for self Impaired cognition/judgement High risk of falls I certify that my clinical findings support that this patient is homebound because: Impaired cognitive ability/safety Unsteady gait/balance Unsafe to leave home unassisted Unable to use public transportation Macarena Stevenson Feb 25, 2017 09:02
== END 2017-02-24 17:28 ==
LOC: NEPE 23:00 → NEDA 02-17 01:04 → NEPGCP 02-17 02:32 → NEPHCDU 02-18 17:08 → NEPFCDU 02-20 20:06
PROVIDERS: ADMIT Internal Medicine; ATTEND Internal Medicine
DX: R53.1 Weakness (principal); E87.1 Hypo-osmolality and hyponatremia; G93.40 Encephalopathy, unspecified; R26.9 Unspecified abnormalities of gait and mobility; I12.9 Hypertensive chronic kidney disease with stage 1 through stage 4 chronic kidney disease, or unspecified chronic kidney disease; R29.6 Repeated falls; F10.10 Alcohol abuse, uncomplicated; F32.9 Major depressive disorder, single episode, unspecified; F03.90 Unspecified dementia, unspecified severity, without behavioral disturbance, psychotic disturbance, mood disturbance, and anxiety; Z91.14 Patient's other noncompliance with medication regimen; N18.3 Chronic kidney disease, stage 3 (moderate); F41.9 Anxiety disorder, unspecified; K59.09 Other constipation; R07.9 Chest pain, unspecified; E55.9 Vitamin D deficiency, unspecified; R10.30 Lower abdominal pain, unspecified; R06.02 Shortness of breath
CPT/HCPCS: 70450; 71010; 73030; 73502; 74018; 80048; 80053; 80307; 81001; 82140; 82306; 82948; 83735; 84100; 84443; 84484; 85025; 93005; 96361; 96374; 96375; 96376; 97110; 97116; 97162; 97167; 99285; G0378; G8987; G8988; G8989; J1630; J2060; J7040; J7050; P9612